=== PATIENT | female | born 1955 | race Caucasian/White ===

== ENCOUNTER 2023-10-04 12:44 | Emergency (ER) | payer BC, SELFPAY ==
[2023-10-04 12:47] VITALS: BP 149/88; PULSE 83; RESP 18; TEMP 36.2; O2SAT 99; BMI 25.7
--- NOTE | 2023-10-04 13:05 | CRLHL7_ITS ---
For Patients: As a result of the Century Cures Act, medical imaging exams and procedure reports are released immediately into your electronic medical record. You may view this report before your referring provider. If you have questions, please contact your health care provider. INDICATION: Left lower quadrant pain COMPARISON: None. TECHNIQUE: CT of the abdomen and pelvis without intravenous contrast. Multiplanar axial, coronal, and sagittal reformats were reconstructed. Intravenous contrast: None. Oral contrast was not administered. FINDINGS: Lung bases: There are two 4 mm right lower nodules. Trace pericardial effusion. No pleural effusion. Liver: Normal size and non-contrast attenuation. Gallbladder and biliary tree: Normal gallbladder. No biliary duct dilation. Pancreas: Normal. Spleen: Normal size. Adrenal glands: Normal. No nodules. Kidneys and bladder: Normal size and position. No obvious cyst or mass. No calculi. No urinary tract dilation. The urinary bladder is normal. GI: Normal. No dilated segments. No abnormal bowel wall thickening. Small stool burden. The appendix is normal. Vessels: Normal caliber abdominal aorta with moderate calcified atherosclerotic plaques. Peritoneum: No free fluid. Lymph nodes: Within the jejunal mesentery there are increased number of very small lymph nodes. No substantial mesenteric edema.. Pelvis: Physiologic appearance of the reproductive organs. Bones: No acute or healing fractures. Spinal curvature. L4-5 disc degeneration and facet arthropathy. 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 IMPRESSION: 1. Nonspecific increased but still very small jejunal mesenteric lymph nodes, could be reactive. No severe bowel inflammation seen on noncontrast CT. 2. Trace pericardial effusion. 3. There are two 4 mm nodules in the right lower lobe. If this is a low risk patient, no follow up is recommended. If the patient is high risk for primary pulmonary malignancy, follow-up chest CT could be considered in 12 months, per the Fleischner Society recommendations. Please note that all CT scans at this facility use dose modulation, iterative reconstruction, and/or weight-based dosing when appropriate to reduce radiation dose to as low as reasonably achievable. Dictated by Alexa Diaz MD @ 10/04/2023 1:53:55 PM (Electronically Signed)
[2023-10-04 13:20] LABS: Appearance Urine Clear (Clear); Bilirubin Urine Negative (Negative); Blood Urine Trace-lysed (Negative); Color Urine Yellow (Yellow); Glucose Urine Negative (Negative); Ketones Urine Negative (Negative); Leukocyte Esterase Urine Negative (Negative); Nitrite Urine Negative (Negative); Protein Urine Negative (Negative); Urobilinogen Urine 0.2 (0.2-1.0)
[2023-10-04 13:44] LABS: RBC Urine 0-2 (0-2); Squamous Epithelial Cell Urine Few (None-Few); WBC Urine 0-2 (0-5)
[2023-10-04 13:47] LABS: Lactate* 0.9 mmol/L (0.5-1.9)
[2023-10-04 13:51] LABS: Basophils Absolute Auto 0.06 K/uL (0.00-0.30); Basophils Percent Auto 0.8 % (0.0-3.0); Eosinophils Absolute Auto 0.46 K/uL (0.00-0.50); Eosinophils Percent Auto 6.1 % (0.0-7.0); Hematocrit 40.8 % (33.0-51.0); Hemoglobin* 13.5 gm/dL (12.0-16.0); Immature Granulocytes Abs Auto 0.01 K/uL (0.00-0.30); Immature Granulocytes Pct Auto 0.1 %; Lymphocytes Absolute Auto 2.07 K/uL (0.90-2.90); Lymphocytes Percent Auto 27.6 % (20-44); Mean Corpuscular HGB Conc 33 gm/dL (32-36); Mean Corpuscular Hemoglobin 31 pg (26-34); Mean Corpuscular Volume 92 fL (80-100); Monocytes Percent Auto 5.6 % (0.0-11.0); Neutrophils Absolute Auto 4.48 K/uL (1.7-7.0); Neutrophils Percent Auto 59.8 % (42.0-72.0); Platelet Count* 334 K/uL (140-440); RDW Coefficient of Variation % 12.2 % (11.5-15.5); Red Blood Count 4.43 m/uL (4.00-5.20)
[2023-10-04 13:53] LABS: Slide Review Reflex No
[2023-10-04 14:07] LABS: Albumin* 4.7 g/dL (3.3-5.0); Chloride* 104 mmol/L (96-114)
[2023-10-04 14:08] LABS: Potassium* 3.8 mmol/L (3.6-5.1); Sodium* 138 mmol/L (135-149)
[2023-10-04 14:10] LABS: Creatinine* 0.8 mg/dL (0.5-1.5); Est. Creatinine Clearance* 52.51; Estimated Glomerular Filt Rate 82 ml/min
[2023-10-04 14:11] LABS: Alanine Aminotransferase* 20 U/L (4-35); Alkaline Phosphatase* 78 U/L (40-150); Anion Gap 11 mEq/L (7-15); Aspartate Amino Transferase* 32 U/L (12-35); Bilirubin Total* 0.3 mg/dL (0.1-1.5); Blood Urea Nitrogen* 7 mg/dL (7-30); Carbon Dioxide* 23 mmol/L (20-32); Glucose* 121 mg/dL (60-115); Lipase* 205 U/L (23-300); Total Protein* 7.7 g/dL (6.0-8.3)
[2023-10-04 14:14] LABS: C Reactive Protein* 0.6 mg/dL (0.5-1.0)
--- NOTE | 2023-10-04 14:17 | CRLHL7_ITS ---
For Patients: As a result of the Century Cures Act, medical imaging exams and procedure reports are released immediately into your electronic medical record. You may view this report before your referring provider. If you have questions, please contact your health care provider. INDICATION: Left lower quadrant abdominal pain. TECHNIQUE: Transabdominal pelvic ultrasound. Grayscale images were acquired. Color spectral Doppler waveform analysis of the ovaries performed. COMPARISON: Correlation is made with a noncontrast CT of the abdomen and pelvis performed on the same date. FINDINGS: The uterus measures 6.9 x 2.6 x 3.6 cm. The endometrial stripe measures 2 mm transvaginally. The ovaries are small but normal in appearance with the right ovary measuring 1.8 x 0.8 x 1.1 cm and the left ovary measuring 2.3 x 0.9 x 1.6 cm. Blood flow is identified in the ovaries both arterial and venous. No free pelvic fluid. IMPRESSION: Normal transabdominal pelvic ultrasound. Dictated by Kingsley Donald MD @ 10/04/2023 5:09:00 PM (Electronically Signed)
--- NOTE | 2023-10-04 14:33 | ED.GENADULT ---
HPI - General Adult General Chief complaint: Abdominal Pain Stated complaint: abdominal pain Time Seen by Provider: 10/04/23 12:55 Source: patient Mode of arrival: ambulatory Limitations: no limitations History of Present Illness HPI narrative: 67-year-old female coming in today complaining of 2 weeks of left lower quadrant abdominal pain. Nothing makes the pain better or worse. It does keep her up at night. She states that she was constipated for a while, then started having normal bowel movements, now had diarrhea today. She denies any urinary symptoms such as dysuria, increased frequency or urgency. She denies fevers or chills. She denies nausea or vomiting. She states that sometime in August she had some upper respiratory symptoms and developed dark brown vaginal spotting which has resolved. She tells me that her provider has ordered her a pelvic MRI-this will not be done until October 17. Patient presents today because she can not handle the pain any longer. She states that her last colonoscopy was in 2019 and she was told that it was entirely normal. Patient takes metoprolol and levothyroxine. She states that she recently had a thyroid checked and was stable. Related Data Home Medications Medication Instructions Recorded Confirmed levothyroxine 100 mcg tablet 100 mcg PO DAILY 10/04/23 10/04/23 (Euthyrox) metoprolol succinate 25 mg 25 mg PO DAILY 10/04/23 10/04/23 tablet,extended release 24 hr Allergies Allergy/AdvReac Type Severity Reaction Status Date / Time Iodinated Contrast Media Allergy Verified 10/04/23 12:54 Review of Systems Status of ROS: Reports: 10 or more systems reviewed and unremarkable except as noted in History and below [facility] Social History Smoking Status: Never smoker How often do you have a drink containing alcohol: monthly or less AUDIT-C Alcohol total score: 1 Non-prescribed substance use: denies use Exam Narrative: Exam Narrative: Well-nourished well-developed patient in no acute distress. Alert and oriented. Answers questions appropriately. Mood and affect are appropriate. Thoughts are goal oriented and rational. No tangential or magical thinking noted. Patient speaks in full sentences without needing to catch their breath. HEENT: Normocephalic atraumatic. Pupils are equally round reactive to light. Extraocular muscles are intact. Conjunctivae are moist without any icterus noted. Moist mucous membranes. Posterior pharynx is normal. Neck is soft without any lymphadenopathy or thyromegaly. No masses are appreciated. Cardiovascular: Heart is regular rate and rhythm S1 and S2 are present without any murmurs. Lungs: Clear to auscultation bilaterally no wheezes rhonchi or rales are appreciated. Patient takes deep breaths without any discomfort. Abdomen: Soft and nondistended. She does have left lower quadrant abdominal tenderness. Normal bowel sounds. No rebound tenderness. No peritoneal signs. Extremities: Bilateral lower extremities are without edema. Normal DP and PT pulses. Skin: Well perfused without any obvious rashes. Const: Vital Signs, click to edit/add: Vital Signs - 24 hr 10/04/23 12:47 10/04/23 15:05 Temperature 97.1 F L Pulse Rate [Right Pulse Oximeter] 83 60 Respiratory Rate 18 16 Blood Pressure [Ri ght Upper Arm] 149/88 H 135/91 H Pulse Oximetry 99 98 Oxygen Delivery Me thod Room Air Room Air Course Course ED Course: Lab work was unremarkable. Abdominal CT showed some small perhaps reactive lymph nodes but no other significant abnormalities aside from trace pericardial effusion, unclear the significance of this at this time. Pelvic ultrasound did not show any abnormalities. Vital Signs Vital signs: Initial Vital Signs Temperature 97.1 F L 10/04/23 12:47 Temperature Source Temporal Artery Scan 10/04/23 12:47 Pulse Rate 83 10/04/23 12:47 Respiratory Rate 18 10/04/23 12:47 Blood Pressure 149/88 H 10/04/23 12:47 Blood Pressure Mean 108 H 10/04/23 12:47 Blood Pressure Position Sitting 10/04/23 12:47 Pulse Oximetry 99 10/04/23 12:47 Oxygen Delivery Method Room Air 10/04/23 12:47 Vital Signs Temperature 97.1 F L 10/04/23 12:47 Pulse Rate 83 10/04/23 12:47 Respiratory Rate 18 10/04/23 12:47 Blood Pressure 149/88 H 10/04/23 12:47 Pulse Oximetry 99 10/04/23 12:47 Oxygen Delivery Method Room Air 10/04/23 12:47 Temperature 97.1 F L 10/04/23 12:47 Pulse Rate 60 10/04/23 15:05 Respiratory Rate 16 10/04/23 15:05 Blood Pressure 135/91 H 10/04/23 15:05 Pulse Oximetry 98 10/04/23 15:05 Oxygen Delivery Method Room Air 10/04/23 15:05 Medical Decision Making MDM Narrative Medical decision making narrative: 67-year-old female with left lower quadrant pain of unclear etiology. At this point recommend follow-up with OBGYN and/or GI. Return to ER if symptoms are getting worse. Lab Data Lab results reviewed: Yes I reviewed the patient's lab results Labs: Lab Results 10/04/23 10/04/23 Range/Units 13:08 13:40 WBC 7.50 (4.50-11.00) K/uL RBC 4.43 (4.00-5.20) m/uL Hgb 13.5 (12.0-16.0) gm/dL Hct 40.8 (33.0-51.0) % MCV 92 (80-100) fL MCH 31 (26-34) pg MCHC 33 (32-36) gm/dL RDW Coeff of Tamy 12.2 (11.5-15.5) % Plt Count 334 (140-440) K/uL Neut % (Auto) 59.8 (42.0-72.0) % Lymph % (Auto) 27.6 (20-44) % [place] % (Auto) 5.6 (0.0-11.0) % Eos % (Auto) 6.1 (0.0-7.0) % Baso % (Auto) 0.8 (0.0-3.0) % Neut # (Auto) 4.48 (1.7-7.0) K/uL Lymph # (Auto) 2.07 (0.90-2.90) K/uL [place] # (Auto) 0.40 (0.00-0.90) K/UL Eos # (Auto) 0.46 (0.00-0.50) K/uL Baso # (Auto) 0.06 (0.00-0.30) K/uL Abs Immat Gran (auto) 0.01 (0.00-0.30) K/uL Imm/Tot Granulo (auto) 0.1 % Sodium 138 (135-149) mmol/L Potassium 3.8 (3.6-5.1) mmol/L Chloride 104 (96-114) mmol/L Carbon Dioxide 23 (20-32) mmol/L Anion Gap 11 (7-15) mEq/L BUN 7 (7-30) mg/dL Creatinine 0.8 (0.5-1.5) mg/dL Estimated Creat Clear 52.51 Estimated GFR 82 ml/min Glucose 121 H (60-115) mg/dL Lactate 0.9 (0.5-1.9) mmol/L Calcium 9.0 (8.4-10.6) mg/dL Total Bilirubin 0.3 (0.1-1.5) mg/dL Direct Bilirubin 0.0 (0.0-0.5) mg/dL AST 32 (12-35) U/L ALT 20 (4-35) U/L Alkaline Phosphatase 78 (40-150) U/L C-Reactive Protein 0.6 (0.5-1.0) mg/dL Total Protein 7.7 (6.0-8.3) g/dL Albumin 4.7 (3.3-5.0) g/dL Lipase 205 (23-300) U/L Urine Color Yellow (Yellow) Urine Appearance Clear (Clear) Urine pH 7.0 (5.0-8.5) Ur Specific [place] 1.010 (1.000-1.030) Urine Protein Negative (Negative) Urine Glucose (UA) Negative (Negative) Urine Ketones Negative (Negative) Urine Blood Trace-lysed A (Negative) Urine Nitrite Negative (Negative) Urine Bilirubin Negative (Negative) Urine Urobilinogen 0.2 (0.2-1.0) Ur Leukocyte Esterase Negative (Negative) Urine RBC 0-2 (0-2) Urine WBC 0-2 (0-5) Ur Squamous Epith Cells Few (None-Few) Urine Bacteria None (None) Imaging Data CT scan - abdomen: Attestation: I have reviewed the pertinent imaging results. Radiologist's impression: INDICATION: Left lower quadrant pain COMPARISON: None. TECHNIQUE: CT of the abdomen and pelvis without intravenous contrast. Multiplanar axial, coronal, and sagittal reformats were reconstructed. Intravenous contrast: None. Oral contrast was not administered. FINDINGS: Lung bases: There are two 4 mm right lower nodules. Trace pericardial effusion. No pleural effusion. Liver: Normal size and non-contrast attenuation. Gallbladder and biliary tree: Normal gallbladder. No biliary duct dilation. Pancreas: Normal. Spleen: Normal size. Adrenal glands: Normal. No nodules. Kidneys and bladder: Normal size and position. No obvious cyst or mass. No calculi. No urinary tract dilation. The urinary bladder is normal. GI: Normal. No dilated segments. No abnormal bowel wall thickening. Small stool burden. The appendix is normal. Vessels: Normal caliber abdominal aorta with moderate calcified atherosclerotic plaques. Peritoneum: No free fluid. Lymph nodes: Within the jejunal mesentery there are increased number of very small lymph nodes. No substantial mesenteric edema.. Pelvis: Physiologic appearance of the reproductive organs. Bones: No acute or healing fractures. Spinal curvature. L4-5 disc degeneration and facet arthropathy. 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 IMPRESSION: 1. Nonspecific increased but still very small jejunal mesenteric lymph nodes, could be reactive. No severe bowel inflammation seen on noncontrast CT. 2. Trace pericardial effusion. 3. There are two 4 mm nodules in the right lower lobe. If this is a low risk patient, no follow up is recommended. If the patient is high risk for primary pulmonary malignancy, follow-up chest CT could be considered in 12 months, per the Fleischner Society recommendations. US - abdomen: Attestation: I have reviewed the pertinent imaging results. Radiologist's impression: TECHNIQUE: Transabdominal pelvic ultrasound. Grayscale images were acquired. Color spectral Doppler waveform analysis of the ovaries performed. COMPARISON: Correlation is made with a noncontrast CT of the abdomen and pelvis performed on the same date. FINDINGS: The uterus measures 6.9 x 2.6 x 3.6 cm. The endometrial stripe measures 2 mm transvaginally. The ovaries are small but normal in appearance with the right ovary measuring 1.8 x 0.8 x 1.1 cm and the left ovary measuring 2.3 x 0.9 x 1.6 cm. Blood flow is identified in the ovaries both arterial and venous. No free pelvic fluid. IMPRESSION: Normal transabdominal pelvic ultrasound. Discharge Plan Discharge Clinical Impression: Abdominal pain Patient Disposition: Home, Self-Care Condition: Stable Additional Instructions: Your workup did not reveal any obvious cause of your pain today. I would recommend you follow-up with your OBGYN or GI physician. Of note, your CT scan did show 2 small pulmonary nodules which are likely of no significance however you should show these results your primary care provider to discuss if you need any further imaging. Okay to take Tylenol, up to 1 g every 8 hours as needed. Also can take ibuprofen up to 800 mg 3 times per day, with meals as needed. Prescriptions: No Action levothyroxine [Euthyrox] 100 mcg tablet 100 mcg PO DAILY metoprolol succinate 25 mg tablet extended release 24 hr 25 mg PO DAILY Follow Up/Referrals: Provider,Not a Local [Primary Care Provider] - Stand Alone Forms: [employer]. Info Instructions
[2023-10-04 15:05] VITALS: BP 135/91; PULSE 60; RESP 16; O2SAT 98
== END 2023-10-04 17:41 | disposition home or self-care (01) ==
PROVIDERS: Emergency Provider Family Medicine
DX: R10.32 Left lower quadrant pain (principal)
CPT/HCPCS: 36415; 74176; 76856; 76857; 80048; 80076; 81001; 83605; 83690; 85025; 86140; 87086; 93976; 99284

== ENCOUNTER 2025-01-28 11:43 | Emergency (ER) | payer OTHER, SELFPAY ==
[2025-01-28 11:48] VITALS: BP 153/102; PULSE 75; RESP 18; TEMP 37.2; O2SAT 99; BMI 24.3
--- NOTE | 2025-01-28 12:01 | CRLHL7_ITS ---
For Patients: As a result of the Century Cures Act, medical imaging exams and procedure reports are released immediately into your electronic medical record. You may view this report before your referring provider. If you have questions, please contact your health care provider. INDICATION: Right upper quadrant pain COMPARISON: None. TECHNIQUE: Roche-scale and color Doppler ultrasound of the right upper quadrant. FINDINGS: Pancreas: Portions the pancreatic head and body demonstrate increased echogenicity consistent with fatty infiltration/atrophy. Liver: Normal hepatic echogenicity and normal echotexture. No mass. Patent portal vein with normal directional flow. Gallbladder and bile ducts: The gallbladder is normally distended. No wall thickening. No pericholecystic fluid. Negative sonographic Morton`s sign. There is a round mildly hyperechoic likely polyp that measures 3 x 3 x 3 millimeters. There is a fairly broad stalk or contact with the gallbladder wall. No intrahepatic ductal dilatation. The proximal extrahepatic bile duct measures up to 10 millimeter. The distal extrahepatic bile duct measures 5 millimeters. No filling defects or extrinsic compression seen. RIGHT Kidney: Renal length: 9.0 cm Parenchyma: Normal thickness and normal echogenicity. Cyst: None Mass: None Calculi: None Urinary tract: Not dilated. Abdominal aorta: Normal. No aneurysm. Ascites: None. IMPRESSION: 1. Mildly dilated proximal common bile duct within normal caliber of the distal common bile duct. Similar findings on the previous CT. 2. There is a 3 millimeter likely gallbladder polyp with a low risk morphology. Per SRU consensus guidelines, no specific follow-up is recommended. Dictated by Alexa Diaz MD @ 01/28/2025 1:31:03 PM (Electronically Signed)
--- NOTE | 2025-01-28 12:11 | ED_ITS ---
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 Who has had a couple week history of right upper quadrant pain, some chest burning. She has had no fevers chills, no cough. No leg swelling or edema. She has been generally quite healthy other than hypothyroid and mild hypertension for which she takes lisinopril and metoprolol. The metoprolol is really for PVCs. The patient has felt that food exacerbates her symptoms. She is our primary care doctor had some blood work done and then had a ultrasound ordered but it can get that for a couple of weeks. She continues to feel poorly and her upper abdomen and right upper quadrant and she presents to the ER. Patient does report when her pain is severe in the epigastrium and right upper quadrant radiates through to her back. No change in the color of her stool or urine. Related Data Home Medications ?Medication ?Instructions ?Recorded ?Confirmed levothyroxine 100 mcg tablet 100 mcg PO DAILY 10/04/23 01/28/25 (Euthyrox) metoprolol succinate 25 mg 25 mg PO DAILY 10/04/23 01/28/25 tablet,extended release 24 hr lisinopril 5 mg tablet 5 mg PO DAILY 01/28/25 01/28/25 Allergies Allergy/AdvReac Type Severity Reaction Status Date / Time Iodinated Contrast Media Allergy Verified 01/28/25 11:52 Review of Systems Status of ROS: Reports: 6 or more systems reviewed and unremarkable except as noted in History and below PFSH PFS Social History Smoking Status: Never smoker How often do you have a drink containing alcohol: monthly or less AUDIT-C Alcohol total score: 1 Non-prescribed substance use: denies use Exam Narrative: Exam Narrative: Objective: Patient's vital signs show slightly elevated blood pressure Alert orient x3 very pleasant No scleral icterus Neck is supple Chest is clear Heart rhythm regular no murmur Abdomen benign soft nontender except in the right upper quadrant and epigastrium she has some mild tenderness no palpable mass no rebound Extremities are no edema neurologic nonfocal. Const: Vital Signs, click to edit/add: Vital Signs - 24 hr 01/28/25 11:48 01/28/25 13:20 01/28/25 13:30 Temperature 98.9 F Pulse Rate [Right Pulse Oximeter] 75 Respiratory Rate 18 11 L 9 L Blood Pressure [Ri ght Upper Arm] 153/102 H Pulse Oximetry 99 Oxygen Delivery Me thod Room Air 01/28/25 13:45 Temperature Pulse Rate [Right Pulse Oximeter] Respiratory Rate 10 L Blood Pressure [Ri ght Upper Arm] Pulse Oximetry Oxygen Delivery Me thod Course Vital Signs Vital signs: Initial Vital Signs Temperature 98.9 F 01/28/25 11:48 Temperature Source Temporal Artery Scan 01/28/25 11:48 Pulse Rate 75 01/28/25 11:48 Pulse Rhythm Regular 01/28/25 11:48 Pulse Strength 3+ Normal 01/28/25 11:48 Respiratory Rate 18 01/28/25 11:48 Blood Pressure 153/102 H 01/28/25 11:48 Blood Pressure Mean 119 H 01/28/25 11:48 Blood Pressure Position Sitting 01/28/25 11:48 Pulse Oximetry 99 01/28/25 11:48 Oxygen Delivery Method Room Air 01/28/25 11:48 Vital Signs Temperature 98.9 F 01/28/25 11:48 Pulse Rate 75 01/28/25 11:48 Respiratory Rate 18 01/28/25 11:48 Blood Pressure 153/102 H 01/28/25 11:48 Pulse Oximetry 99 01/28/25 11:48 Oxygen Delivery Method Room Air 01/28/25 11:48 Temperature 98.9 F 01/28/25 11:48 Pulse Rate 75 01/28/25 11:48 Respiratory Rate 10 L 01/28/25 13:45 Blood Pressure 153/102 H 01/28/25 11:48 Pulse Oximetry 99 01/28/25 11:48 Oxygen Delivery Method Room Air 01/28/25 11:48 Medications Administered Medications: Discontinued Medications Generic Name Dose Route Start Last Admin Trade Name Freq PRN Reason Stop Dose Admin Sodium Chloride 1,000 mls @ 6,000 mls/hr 01/28/25 12:15 01/28/25 13:49 0.9 % Sodium Chloride 1000 Ml IV 01/28/25 12:24 Infused .Q10M HEMALATHA Infusion Pantoprazole Sodium 40 mg 01/28/25 12:01 01/28/25 13:07 Pantoprazole Sodium 40 Mg Inj IVP 01/28/25 12:02 40 mg ONCE ONE Administration Medical Decision Making MDM Narrative Medical decision making narrative: [age] year white female with a history of persistent right upper quadrant epigastric pain. She has developed some chest burning. At this point I think be townsend to rule out acute coronary syndrome will check an EKG, troponin, I suspect this is more GI in nature and is likely cholelithiasis or biliary colic. Will get an ultrasound. She last ate about 4 hours ago. Will check laboratory studies including amylase and LFTs and CBC and CRP. Will give some IV fluid and IV Protonix. Disposition pending findings above. Patient comfortable plan. Addendum 2:00 p.m.: The patient's EKG by my read shows normal sinus rhythm no acute ST T wave changes. Her troponin is 0, CRP is less than 0.5, white count hemoglobin are normal. ER profile is unremarkable. Ultrasound of the right upper quadrant shows mildly dilated proximal common bile duct but unchanged from prior CT scan normal caliber the distal common bile duct 3 mm gallbladder polyp with out any significant morphology change no follow-up recommended. At this point the patient feels better. We did give her IV Protonix I think we should just continue Prilosec 20 b.i.d. for the next week and then 20 daily for the next week, recommend she follow-up with her primary care doctor in prior like within the next 3-4 days. Light activity, light diet, Prilosec as described. Return if there is change concerns recurrence. She was comfortable distal follow up as directed. I suspect the patient may have some mild peptic ulcer disease or gastritis, she did have H pylori in the past, but I think simply treating with a proton pump inhibitor would be appropriate at this time. May need endoscopy if she continues to have symptoms. Lab Data Labs: Lab Results 01/28/25 01/28/25 Range/Units 12:02 13:00 WBC 7.19 (4.50-11.00) K/uL RBC 4.64 (4.00-5.20) m/uL Hgb 14.3 (12.0-16.0) gm/dL Hct 42.4 (33.0-51.0) % MCV 91 (80-100) fL MCH 31 (26-34) pg MCHC 34 (32-36) gm/dL RDW Coeff of Tamy 12.1 (11.5-15.5) % Plt Count 334 (140-440) K/uL Neut % (Auto) 62.8 (42.0-72.0) % Lymph % (Auto) 27.7 (20-44) % [place] % (Auto) 5.1 (0.0-11.0) % Eos % (Auto) 3.3 (0.0-7.0) % Baso % (Auto) 1.0 (0.0-3.0) % Neut # (Auto) 4.51 (1.7-7.0) K/uL Lymph # (Auto) 1.99 (0.90-2.90) K/uL [place] # (Auto) 0.40 (0.00-0.90) K/UL Eos # (Auto) 0.24 (0.00-0.50) K/uL Baso # (Auto) 0.07 (0.00-0.30) K/uL Abs Immat Gran (auto) 0.01 (0.00-0.30) K/uL Imm/Tot Granulo (auto) 0.1 % Sodium 137 (135-149) mmol/L Potassium 4.2 (3.6-5.1) mmol/L Chloride 102 (96-114) mmol/L Carbon Dioxide 26 (20-32) mmol/L Anion Gap 9 (7-15) mEq/L BUN 9 (7-30) mg/dL Creatinine 0.9 (0.5-1.5) mg/dL Estimated Creat Clear 53.09 Estimated GFR 70 ml/min Glucose 95 (60-115) mg/dL Lactate 0.7 (0.5-1.9) mmol/L Calcium 9.4 (8.4-10.6) mg/dL Total Bilirubin 0.7 (0.1-1.5) mg/dL Direct Bilirubin 0.5 (0.0-0.5) mg/dL AST 41 H (12-35) U/L ALT 20 (4-35) U/L Alkaline Phosphatase 59 (40-150) U/L C-Reactive Protein < 0.5 L (0.5-1.0) mg/dL Total Protein 8.0 (6.0-8.3) g/dL Albumin 4.9 (3.3-5.0) g/dL POC Troponin I 0.00 L (0.01-0.04) ng/ml Discharge Plan Discharge Clinical Impression: Acute epigastric pain Patient Disposition: Home, Self-Care Condition: Improved Additional Instructions: Light diet for the next 24-48 hour, Prilosec 20 mg b.i.d. for the next week and then daily for the next week after that. Follow up with regular doctor in next 3-4 days. Light activity recommended as well. Return if problems or concerns. Activity Level: Light activity Discharge Diet: Low Fat/Low Cholesterol Prescriptions: No Action levothyroxine [Euthyrox] 100 mcg tablet 100 mcg PO DAILY metoprolol succinate 25 mg tablet extended release 24 hr 25 mg PO DAILY lisinopril 5 mg tablet 5 mg PO DAILY Follow Up/Referrals: Provider,Not a Local [Primary Care Provider] - Stand Alone Forms: [employer] Info Instructions
[2025-01-28] MEDS: 0.9 % SODIUM CHLORIDE 1000 ml 1,000 ML 6000 ML IV (13:07)
[2025-01-28] MEDS: PANTOPRAZOLE SODIUM 40 MG INJ IVP (13:07)
[2025-01-28 13:12] LABS: Lactate* 0.7 mmol/L (0.5-1.9)
[2025-01-28 13:13] LABS: Basophils Absolute Auto 0.07 K/uL (0.00-0.30); Eosinophils Absolute Auto 0.24 K/uL (0.00-0.50); Eosinophils Percent Auto 3.3 % (0.0-7.0); Hematocrit 42.4 % (33.0-51.0); Hemoglobin* 14.3 gm/dL (12.0-16.0); Immature Granulocytes Abs Auto 0.01 K/uL (0.00-0.30); Immature Granulocytes Pct Auto 0.1 %; Lymphocytes Absolute Auto 1.99 K/uL (0.90-2.90); Lymphocytes Percent Auto 27.7 % (20-44); Mean Corpuscular HGB Conc 34 gm/dL (32-36); Mean Corpuscular Hemoglobin 31 pg (26-34); Mean Corpuscular Volume 91 fL (80-100); Monocytes Percent Auto 5.1 % (0.0-11.0); Neutrophils Absolute Auto 4.51 K/uL (1.7-7.0); Neutrophils Percent Auto 62.8 % (42.0-72.0); Platelet Count* 334 K/uL (140-440); RDW Coefficient of Variation % 12.1 % (11.5-15.5); Red Blood Count 4.64 m/uL (4.00-5.20); White Blood Count* 7.19 K/uL (4.50-11.00)
[2025-01-28 13:17] LABS: Slide Review Reflex No
--- OUTSIDE RECORDS SUMMARY | 2025-01-28 13:18 | XMS_ITS | Encounter Summary ---
Author Organization [place] Address [address] [place] [address] Care Team Providers Care Auditor Name Role Phone Loretta Grove MD Primary Care Provider [phone] Loretta Grove MD Unavailable [phone] Beverley Leonard OD Unavailable Shirin Rendon MD Unavailable Loretta Grove MD Unavailable [phone] Junior Flores MD Unavailable Belinda Brunson CNP Primary Care Provider [phone] Belinda Brunson CNP Unavailable [phone] Encounter Details Date Type Department Care Team (Late st Contact Info) Description 10/21/2021 MyC Medical Advice [facility] [address] [place] [address] Magdalena Burger Social History Tobacco Use Types Packs/Day Years Used Date Smoking Tobacco: Never Smokeless Tobacco: Never Alcohol Use Standard Drinks/Week Comments Yes 0 (1 standard drink = 0.6 oz pur e alcohol) wine sometimes PHQ-2 Answer Date Recorded PHQ-2 Score 0 04/15/2021 Comments No Sex and Gender Information Value Date Recorded Sex Assigned at Female 03/19/2022 8:51 PM CDT Legal Sex Female 5:08 AM DE ICER FINISHER Gender Identity Female 03/19/2022 8:51 PM CDT Sexual Orientation Not on file COVID-19 Exposure Response Date Recorded In the last month, have you been in contact with someone who was confirmed or suspected to have Coronavirus / COVID-19? No / Unsure 10/22/2021 6:30 AM DE ICER FINISHER documented as of this encounter Plan of Treatment Upcoming Encounters Date Type Department Care Team (Late st Contact Info) Description 02/04/2025 1:00 PM CDT Appointment [facility] Imaging [address] [place] [phone] Belinda Brunson, AIRPLANE COVER MAKER [address] [place] [address] 02/06/2025 8:[address] [facility] [address] [place] [phone] 10/26/2025 9:30 AM DE ICER FINISHER Office Visit [address] [phone] Belinda Brunson, AIRPLANE COVER MAKER [address] [place] [address] documented as of this encounter Visit Diagnoses Not on filedocumented in this encounter Additional Health Concerns Infection Onset Date Last Indicated Resolved Time Rule Out C-difficile 04/08/2023 04/08/2023 023 3:47 PM CDT Assessment Noted Time PHQ-9 Depression Total Score: 0 03/27/20 19 9:42 AM CDT documented as of this encounter Care Teams Auditor Relationship Specialty [place] [address] [place] [address] PCP - General Family Practice 11/16/15 10/15/24 Belinda Brunson, LALO [facility] [place] [address] PCP - General Nurse Practitioner - Family 10/16/24 [place] [address] [place] [address] Assigned PCP 04/17/21 09/08/22 Beverley Leonard OD [address] [facility] [place] [address] Assigned Surgical Provider 10/02/21 12/31/21 [place] [address] [place] [address] Assigned PCP 09/09/22 10/12/23 [place] [address] [place] [address] Assigned PCP 10/13/23 11/02/24 Junior Flores MD [address] [address] Assigned OBGYN Provider 10/27/23 Belinda Brunson, LALO [facility] [place] [address] Assigned PCP 11/03/24 documented as of this encounter
--- OUTSIDE RECORDS SUMMARY | 2025-01-28 13:18 | XMS_ITS | Encounter Summary ---
Author Organization [facility] Address [address] [place] [address] Care Team Providers Care Pharmacy Services Representative Name Role Phone Loretta Grove MD Primary Care Provider Shirin Rendon MD Unavailable Loretta Grove MD Unavailable [phone] Junior Flores MD Unavailable Belinda Brunson CNP Primary Care Provider Belinda Brunson CNP Unavailable [phone] Reason for Visit * Reason Onset Date Comments MyChart Communication 04/05/2023 Encounter Details Date Type Department Care Team (Late st Contact Info) Description 04/05/2023 [facility] [address] [place] [address] [place] [address] [place] [address] MyChart Communication Social History Tobacco Use Types Packs/Day Years Used Date Smoking Tobacco: Never Smokeless Tobacco: Never Alcohol Use Standard Drinks/Week Comments Yes 0 (1 standard drink = 0.6 oz pur e alcohol) wine sometimes Social Connection and Isolat ion Panel [NHANES] Answer Date Recorded In a typical week, how many times do you talk on the phone with family, friends, or neighbors? More than three times a week 08/27/2022 How often do you get togethe r with friends or relatives? More than three times a week 08/27/2022 How often do you attend chur ch or congregational services? More than 4 times per year 08/27/2022 Active Member of Clubs or Organizations Not on f ile 08/27/2022 Attends Club or Organization Meetings Not on marcos e 08/27/2022 Are you , , di vorced, , never , or living with a partner? 08/27/2022 AUDIT-C Answer Date Recorded Q1: How often do you have a drink containing alc ohol? Monthly or less 08/27/2022 Q2: How many drinks containi ng alcohol do you have on a typical day when you are drinking? 1 or 2 08/27/2022 Q3: How often do you have si x or more drinks on one occasion? Never 08/27/2022 Overall Financial Resource Strain (CARDIA) Answe r Date Recorded How hard is it for you to pa y for the very basics like food, housing, medical care, and heating? Patient declined 08/27/2022 PHQ-2 Answer Date Recorded PHQ-2 Score 0 08/29/2022 [facility] - Occupational Stress Questionnaire Answer Date Recorded Do you feel stress - tense, restless, nervous, or anxious, or unable to sleep at night because your mind is troubled all the time - these days? Only a little 08/27/2022 Exercise Vital Sign Answer Date Recorde d On average, how many days pe r week do you engage in moderate to strenuous exercise (like a brisk walk)? 6 days 08/27/2022 On average, how many minutes do you engage in exercise at this level? 50 min 08/27/2022 Hunger Vital Sign Answer Date Recorded Within the past 12 months, y ou worried that your food would run out before you got the money to buy more. Patient declined Within the past 12 months, t he food you bought just didn't last and you didn't have money to get more. Patient declined PRAPARE - Transportation Answer Date Re corded In the past 12 months, has l ack of transportation kept you from medical appointments or from getting medications? No 08/12 In the past 12 months, has l ack of transportation kept you from meetings, work, or from getting things needed for daily living? No 08/27/2022 Housing Stability Vital Sign Answer Dav e Recorded In the last 12 months, was t here a time when you were not able to pay the mortgage or rent on time? Patient refused 08/27/20 22 In the last 12 months, how many places have you lived? 1 08/27/2022 In the last 12 months, was t here a time when you did not have a steady place to sleep or slept in a longterm (including now)? No 08/27/2022 Comments No Sex and Gender Information Value Date Recorded Sex Assigned at Female 03/19/2022 8:51 PM CDT Legal Sex Female 5:08 AM BROADBAND TECHNICIAN Gender Identity Female 03/19/2022 8:51 PM CDT Sexual Orientation Not on file COVID-19 Exposure Response Date Recorded In the last 10 days, have yo u been in contact with someone who was confirmed or suspected to have Coronavirus/COVID-19? No / Unsure 04/08/2023 10:20 AM CDT documented as of this encounter Miscellaneous Notes * Telephone Encounter - Loretta Grove MD - 04/06/2023 12:03 PM CDT Any time * Telephone Encounter - Lou Christianson RN - 04/06/2023 7:48 AM CDT Call to pt- She did take an imodium last night I just could not take it any more She has not had a diarrhea stool since last night. Reviewed diet with pt and need to go to ER if symptoms of dehydration. Continue with Gatorade and bland diet She will come up today to supervisor opening and picking test. As she took the imodium when should she collect sample? Lou Christianson RN * Telephone Encounter - Loretta Grove MD - 04/05/2023 5:48 PM CDT NO IMODIUM!!! Or at least until we can negative stool testing. Stool tests ordered - please have her come in [facility] Sunday to fulfill these so we can get results back. If she feels she is too dehydrated, she needs to proceed to ER for IVF> JH * Telephone Encounter - Maria Alejandra Sung RN - 04/05/2023 1:13 PM CDT Please advise Maria Alejandra Heck RN, BSN documented in this encounter Plan of Treatment Upcoming Encounters Date Type Department Care Team (Late st Contact Info) Description 02/04/2025 1:00 PM CDT Appointment [facility] Imaging [address] [facility] [address] [place] [address] Belinda Brunson, RAW MATERIAL HANDLER [address] [place] [phone] 02/06/2025 8:15 AM CDT Lab [facility] [address] [place] [phone] 10/26/2025 9:30 AM BROADBAND TECHNICIAN Office Visit [address] [phone] Belinda Brunson, RAW MATERIAL HANDLER [address] [place] [address] documented as of this encounter Results * Enteric Bacteria and Virus Panel by WENDY Stool (04/08/2023 10:30 AM CDT) Campylobacter group Not Detected Not Detected 04/08/2023 10:25 PM CDT [facility] Salmonella species Not Detected Not Detected 04/08/2023 10:25 PM CDT [facility] Shigella species Not Detected Not Detected 04/08/2023 10:25 PM CDT [facility] Vibrio group Not Detected Not Detected 04/08/2023 10:25 PM CDT [facility] Rotavirus Not Detected Not Detected 04/08/2023 10:25 PM CDT [facility] Shiga toxin 1 gene Not Detected Not Detected 04/08/2023 10:25 PM CDT [facility] Shiga toxin 2 gene Not Detected Not Detected 04/08/2023 10:25 PM CDT [facility] Norovirus I and II Not Detected Not Detected 04/08/2023 10:25 PM CDT [facility] Yersinia enterocolitica Not Detected Not Detected 04/08/2023 10:25 PM CDT [facility] Stool RECTAL CONTENTS / Unknown Non-blood Collection / Unknown 04/08/2023 10:30 AM CDT 04/08/2023 11:38 AM CDT Narrative [facility] - 04/08/2023 10:25 PM CDT Testing performed by multiplexed, qualitative PCR using the [employer] Enteric Pathogens Nucleic Acid Test. Results should not be used as the sole basis for diagnosis, treatment or other patient management decisions. Positive results do not rule out co-infection with other organisms that are not detected by this test and may not be the sole or definitive cause of patient illness. Negative results in the setting of clinical illness compatible with gastroenteritis may be due to infection by pathogens that are not detected by this test or non-infectious causes such as ulcerative colitis, irritable bowel syndrome or Crohn's disease. Note: Shiga toxin producing E. coli (STEC) typically harbor one or both genes that encode for Shiga toxins 1 and 2. us Loretta Grove MD LAB - MICRO GENERAL ORDER RONY Final Result [facility] Inf. Diseases Diag. Lab [address] [facility] [place] [phone] [phone] * C. difficile Toxin B PCR with reflex to C. difficile Antigen and Toxins A/B EIA (04/08/2023 10:30 AM CDT) C Difficile Toxin B by PCR Negative Negative 04/08/2023 3:47 PM CDT [facility] Comment:A negative result do es not exclude actual disease due to C. difficile and may be due to improper collection, handling and storage of the specimen or the number of organisms in the specimen is below the detection limit of the assay. Stool RECTAL CONTENTS / Unknown Non-blood Collection / Unknown 04/08/2023 10:30 AM CDT 04/08/2023 11:37 AM CDT Narrative [facility] - 04/08/2023 3:47 PM CDT The [employer] Xpert C. difficile Assay, performed on the [employer] Systems, is a qualitative in vitro diagnostic test for rapid detection of toxin B gene sequences from unformed (liquid or soft) stool specimens collected from patients suspected of having Clostridioides difficile infection (CDI). The test utilizes automated real-time polymerase chain reaction (PCR) to detect toxin gene sequences associated with toxin producing C. difficile. The Xpert C. difficile Assay is intended as an aid in the diagnosis of CDI. Loretta Grove MD LAB - MICRO GENERAL ORDER RONY Final Result [facility] Inf. Diseases Diag. Lab [address] [facility] [place] [address] [phone] * Ova and Parasite Exam Routine (04/08/2023 10:30 AM CDT) OVA AND PARASITE EXAM Negative Negative ARNALDO 04/10/2023 3:24 PM CDT [facility] Comment:A single negative sp ecimen does not rule out parasitic infection. Stool RECTAL CONTENTS / Unknown Non-blood Collection / Unknown 04/08/2023 10:30 AM CDT 04/08/2023 11:36 AM CDT Narrative [facility] - 04/10/2023 3:24 PM CDT Cryptosporidium, Cyclospora and Microsporidia are not readily detected by this method. Loretta Grove MD LAB - MICRO GENERAL ORDER RONY Final Result [facility] Inf. Diseases Diag. Lab [address] [facility] [place] [address], [facility] [phone] documented in this encounter Visit Diagnoses Diagnosis Diarrhea, unspecified type- Primary documented in this encounter Additional Health Concerns Infection Onset Date Last Indicated Resolved Time Rule Out C-difficile 04/08/2023 04/08/2023 023 3:47 PM CDT Assessment Noted Time PHQ-9 Depression Total Score: 0 03/27/20 19 9:42 AM CDT documented as of this encounter Care Teams Pharmacy Services Representative Relationship Specialty [place] [address] [place] [address] PCP - General Family Practice 11/16/15 10/15/24 Belinda Brunson, LALO [address] [place] [address] PCP - General Nurse Practitioner - Family 10/16/24 [place] [address] [place] [address] Assigned PCP 09/09/22 10/12/23 [place] [address] [place] [address] Assigned PCP 10/13/23 11/02/24 Junior Flores MD [facility], [address] [place] [address] Assigned OBGYN Provider 10/27/23 Belinda Brunson, LAOL [address] [place] [address] Assigned PCP 11/03/24 documented as of this encounter
--- OUTSIDE RECORDS SUMMARY | 2025-01-28 13:18 | XMS_ITS | Encounter Summary ---
Author Organization [place] Address [address] [place] [address] Care Team Providers Care Account Resolution Expert Name Role Phone Loretta Grove MD Primary Care Provider [phone] Loretta Grove MD Unavailable [phone] Loretta Grove MD Unavailable [phone] Terrance Gudino DPM Unavailable [phone] Yvonne Bailey MD Unavailable [phone] Loretta Grove MD Unavailable [phone] Beverley Leonard OD Unavailable Shirin Rendon MD Unavailable Loretta Grove MD Unavailable [phone] Junior Flores MD Unavailable Belinda Brunson CNP Primary Care Provider [phone] Belinda Brunson CNP Unavailable [phone] Encounter Details Date Type Department Care Team (Late st Contact Info) Description 03/16/2016 MyC Medical Advice [address] [address] Analia Cui MD [address] [facility] [place] [address] Social History Tobacco Use Types Packs/Day Years Used Date Smoking Tobacco: Never Smokeless Tobacco: Never Alcohol Use Standard Drinks/Week Comments No 0 (1 standard drink = 0.6 oz pur e alcohol) Comments No Sex and Gender Information Value Date Recorded Sex Assigned at Female 03/19/2022 8:51 PM CDT Legal Sex Female 5:08 AM PIPE ORGAN INSTALLER Gender Identity Female 03/19/2022 8:51 PM CDT Sexual Orientation Not on file documented as of this encounter Plan of Treatment Upcoming Encounters Date Type Department Care Team (Late st Contact Info) Description 02/04/2025 1:00 PM CDT Appointment [facility] Imaging [address] [place] [address] [place] [phone] Belinda Brunson, FUNERAL DIRECTOR AND EMBALMER [address] [place] [address] 02/06/2025 8:15 AM CDT Lab [facility] [address] [place] [phone] 10/26/2025 9:30 AM PIPE ORGAN INSTALLER Office Visit [address] [address] Belinda Brunson, FUNERAL DIRECTOR AND EMBALMER [address] [place] [address] documented as of this encounter Visit Diagnoses Not on filedocumented in this encounter Additional Health Concerns Infection Onset Date Last Indicated Resolved Time Rule Out C-difficile 04/08/2023 04/08/2023 023 3:47 PM CDT documented as of this encounter Care Teams Account Resolution Expert Relationship Specialty [place] [address] [place] [address] PCP - General Family Practice 11/16/15 10/15/24 [place] [address] [place] [address] PCP - Assigned PCP 11/21/15 01/14/19 Belinda Brunson CNP [address] [place] [address] PCP - General Nurse Practitioner - Family 10/16/24 [place] [address] [place] [address] Assigned PCP 11/21/15 04/06/21 Terrance Gudino DPM [id number] [place] [address] [address] [place] [address] Assigned Musculoskeletal Provider 09/03/20 10/05/20 Yvonne Bailey MD [address] [place] [address] [place] [address] Assigned PCP 04/07/21 04/16/21 [place] [address] [place] [address] Assigned PCP 04/17/21 09/08/22 Beverley Leonard OD [address] [place] [address] [place] [address] Assigned Surgical Provider 10/02/21 12/31/21 [place] [address] [place] [address] Assigned PCP 09/09/22 10/12/23 [place] [address] [place] [address] Assigned PCP 10/13/23 11/02/24 Junior Flores MD [address] [facility], [address] [address] Assigned OBGYN Provider 10/27/23 Belinda Brunson, FUNERAL DIRECTOR AND EMBALMER [address] [place] [address] Assigned PCP 11/03/24 documented as of this encounter
--- OUTSIDE RECORDS SUMMARY | 2025-01-28 13:18 | XMS_ITS | Encounter Summary ---
Author Organization [facility] Address [address] [place] [address] Care Team Providers Care Maintenance Custodian Name Role Phone Loretta Grove MD Primary Care Provider [phone] Shirin Rendon MD Unavailable Loretta Grove MD Unavailable [phone] Junior Flores MD Unavailable Belinda Brunson CNP Primary Care Provider [phone] Belinda Brunson CNP Unavailable [phone] Encounter Details Date Type Department Care Team (Late st Contact Info) Description 10/01/2023 [facility] Medical Advice [facility] Women's [address] [place] [phone] Louise Pat Social History Tobacco Use Types Packs/Day Years [...] neighbors? More than three times a week 10/02/2023 How often do you get togethe r with friends or relatives? Once a week 10/02/2023 How often do you attend chur ch or mu-ism services? More than 4 times per year 10/02/2023 Do you belong to any clubs o r organizations such as religious groups, unions, fraternal or athletic groups, or school groups? No 10/02/2023 How often do you attend meet ings of the clubs or organizations you belong to? Never 10/02/2023 Are you , , di vorced, , never , or living with a partner? 10/02/2023 AUDIT-C Answer Date Recorded Q1: How often do you have a drink containing alc ohol? Monthly or less 10/02/2023 Q2: How many drinks containi ng alcohol do you have on a typical day when you are drinking? 1 or 2 10/02/2023 Q3: How often do you have si x or more drinks on one occasion? Never 10/02/2023 PHQ-2 Answer Date Recorded PHQ-2 Score 0 10/02/2023 [facility] of Occupat ional Health - Occupational Stress Questionnaire Answer Date Recorded Do you feel stress - tense, restless, nervous, or anxious, or unable to sleep at night because your mind is troubled all the time - these days? Only a little 10/02/2023 Exercise Vital Sign Answer Date Recorde d On average, how many days pe r week do you engage in moderate to strenuous exercise (like a brisk walk)? 5 days 10/02/2023 On average, how many minutes do you engage in exercise at this level? 30 min 10/02/2023 Adolescent Education Answer Date Record ed Getting School Help Needed Not on file 08/08 Food Insecurity Answer Date Recorded Within the past 12 months, d id you worry that your food would run out before you got money to buy more? No 10/02/2023 Within the past 12 months, d id the food you bought just not last and you didn t have money to get more? No 10/02/2023 Housing Stability Answer Date Recorded Do you have housing? (Mavis g is defined as stable permanent housing and does not include staying ouside in a car, in a tent, in an abandoned building, in an overnight detention, or couch-surfing.) Yes 10/02/2023 Are you worried about losing your housing? No 10/02/2023 Financial Resource Strain Answer Date R ecorded Within the past 12 months, h ave you or your family members you live with been unable to get utilities (heat, electricity) when it was really needed? No 10/02/2023 Transportation Needs Answer Date Record ed Within the past 12 months, h as lack of transportation kept you from medical appointments, getting your medicines, non-medical meetings or appointments, work, or from getting things that you need? No 10/02/2023 Interpersonal Safety Answer Date Record ed Do you feel physically and e motionally safe where you currently live? Yes 10/02/2023 Within the past 12 months, h ave you been hit, slapped, kicked or otherwise physically hurt by someone? No 10/02/2023 Within the past 12 months, h ave you been humiliated or emotionally abused in other ways by your partner or ex-partner? No 10/02/2023 Comments No Sex and Gender Information Value Date Recorded Sex Assigned at Female 03/19/2022 8:51 PM CDT Legal Sex Female 5:08 AM FAMILY PRACTICE NURSE PRACTITIONER Gender Identity Female 03/19/2022 8:51 PM CDT Sexual Orientation Not on file documented as of this encounter Plan of Treatment Upcoming Encounters Date Type Department Care Team (Late st Contact Info) Description 02/04/2025 1:00 PM CDT Appointment [facility] Imaging [address] [facility] [address] [place] [address] Belinda Brunson, SQUEEGEE OPERATOR [address] [place] [address] 02/06/2025 8:[address] [facility] [address] [place] [phone] 10/26/2025 9:30 AM FAMILY PRACTICE NURSE PRACTITIONER Office Visit [address] [phone] Belinda Brunson, SQUEEGEE OPERATOR [address] [place] [address] documented as of this encounter Visit Diagnoses Not on filedocumented in this encounter Additional Health Concerns Assessment Noted Time PHQ-9 Depression Total Score: 0 03/27/20 19 9:42 AM CDT documented as of this encounter Care Teams Maintenance Custodian Relationship Specialty [place] [address] [place] [address] PCP - General Family Practice 11/16/15 10/15/24 Belinda Brunson CNP [address] [place] [address] PCP - General Nurse Practitioner - Family 10/16/24 [place] [address] [place] [address] Assigned PCP 09/09/22 10/12/23 [place] [address] [place] [address] Assigned PCP 10/13/23 11/02/24 Junior Flores MD [facility] [address] [address] Assigned OBGYN Provider 10/27/23 Belinda Brunson CNP [address] [place] [address] Assigned PCP 11/03/24 documented as of this encounter
--- OUTSIDE RECORDS SUMMARY | 2025-01-28 13:18 | XMS_ITS | Encounter Summary ---
Author Organization [place] Address [address] [place] [address] Care Team Providers Care Blast Furnace Checker Name Role Phone Loretta Grove MD Primary Care Provider [phone] Loretta Grove MD Unavailable [phone] Loretta Grove MD Unavailable [phone] Terrance Gudino DPM Unavailable [phone] Yvonne Bailey MD Unavailable [phone] Loretta rGove MD Unavailable [phone] Beverley Leonard OD Unavailable Shirin Rendon MD Unavailable Loretta Grove MD Unavailable [phone] Junior Flores MD Unavailable Belinda Brunson CNP Primary Care Provider [phone] Belinda Brunson CNP Unavailable [phone] Encounter Details Date Type Department Care Team (Late st Contact Info) Description 03/17/2016 [facility] Medical Advice [address] [address] Analia Cui MD 0009 [facility] [place] [address] Social History Tobacco Use Types Packs/Day Years Used Date Smoking Tobacco: Never Smokeless Tobacco: Never Alcohol Use Standard Drinks/Week Comments No 0 (1 standard drink = 0.6 oz pur e alcohol) Comments No Sex and Gender Information Value Date Recorded Sex Assigned at Female 03/19/2022 8:51 PM CDT Legal Sex Female 5:08 AM HAND BUFFER Gender Identity Female 03/19/2022 8:51 PM CDT Sexual Orientation Not on file documented as of this encounter Plan of Treatment Upcoming Encounters Date Type Department Care Team (Late st Contact Info) Description 02/04/2025 1:00 PM CDT Appointment [facility] [address] [place] [phone] Belinda Brunson, ASSEMBLER LIQUID CENTER [address] [place] [address] 02/06/2025 8:15 AM CDT Lab [facility] [address] [place] [phone] 10/26/2025 9:30 AM HAND BUFFER Office Visit [address] [phone] Belinda Brunson, ASSEM[facility] CENTER [address] [place] [address] documented as of this encounter Visit Diagnoses Not on filedocumented in this encounter Additional Health Concerns Infection Onset Date Last Indicated Resolved Time Rule Out C-difficile 04/08/2023 04/08/2023 023 3:47 PM CDT documented as of this encounter Care Teams Blast Furnace Checker Relationship Specialty [place] [address] [place] [address] PCP - General Family Practice 11/16/15 10/15/24 [place] [address] [place] [address] PCP - Assigned PCP 11/21/15 01/14/19 Belinda Brunson CNP [address] [place] [address] PCP - General Nurse Practitioner - Family 10/16/24 [place] [address] [place] [address] Assigned PCP 11/21/15 04/06/21 Terrance Gudino DPM [id number] [place] [address] [address] [place] [address] Assigned Musculoskeletal Provider 09/03/20 10/05/20 Yvonne Bailey MD [address] [place] [address] [place] [address] Assigned PCP 04/07/21 04/16/21 [place] [address] [place] [address] Assigned PCP 04/17/21 09/08/22 Beverley Leonard OD [address] [place] [address] [place] [address] Assigned Surgical Provider 10/02/21 12/31/21 [place] [address] [place] [address] Assigned PCP 09/09/22 10/12/23 [place] [address] [place] [address] Assigned PCP 10/13/23 11/02/24 Junior Flores MD [address] [facility], [address] [address] Assigned OBGYN Provider 10/27/23 Belinda Brunson, [facility] [address] [place] [address] Assigned PCP 11/03/24 documented as of this encounter
--- OUTSIDE RECORDS SUMMARY | 2025-01-28 13:18 | XMS_ITS | Encounter Summary ---
Author Organization [place] Address [address] [place] [address] Care Team Providers Care Motion Study Engineer Name Role Phone Loretta Grove MD Primary Care Provider [phone] Loretta Grove MD Unavailable [phone] Loretta Grove MD Unavailable [phone] Terrance Gudino DPM Unavailable [phone] Yvonne Bailey MD Unavailable [phone] Loretta Grove MD Unavailable [phone] Beverley Leonard OD Unavailable Shirin Rendon MD Unavailable Loretta Grove MD Unavailable [phone] Junior Flores MD Unavailable Belinda Brunson CNP Primary Care Provider [phone] Belinda Brunson CNP Unavailable [phone] Encounter Details Date Type Department Care Team (Late st Contact Info) Description 03/16/2016 [facility] [address] [place] [phone] Maria Alejandra Sung APRN SUPERVISOR PARTIAL DENTURE DEPARTMENT [address] [place] [address] [address] [place] [address] Social History Tobacco Use Types Packs/Day Years Used Date Smoking Tobacco: Never Smokeless Tobacco: Never Alcohol Use Standard Drinks/Week Comments No 0 (1 standard drink = 0.6 oz pur e alcohol) Comments No Sex and Gender Information Value Date Recorded Sex Assigned at Female 03/19/2022 8:51 PM CDT Legal Sex Female 5:08 AM UNDERGROUND MINE MACHINERY MECHANIC Gender Identity Female 03/19/2022 8:51 PM CDT Sexual Orientation Not on file documented as of this encounter Plan of Treatment Upcoming Encounters Date Type Department Care Team (Late st Contact Info) Description 02/04/2025 1:00 PM CDT Appointment [facility] [address] [place] [phone] Belinda Brunson, SUPERVISOR PARTIAL DENTURE DEPARTMENT [address] [place] [address] 02/06/2025 8:15 AM CDT Lab [facility] [address] [place] [address] [phone] 10/26/2025 9:30 AM UNDERGROUND MINE MACHINERY MECHANIC Office Visit [address] [place] [phone] Belinda Brunson, SUPERVISOR PARTIAL DENTURE DEPARTMENT [address] [place] [address] documented as of this encounter Visit Diagnoses Not on filedocumented in this encounter Additional Health Concerns Infection Onset Date Last Indicated Resolved Time Rule Out C-difficile 04/08/2023 04/08/2023 023 3:47 PM CDT documented as of this encounter Care Teams Motion Study Engineer Relationship Specialty [place] [address] [place] [address] PCP - General Family Practice 11/16/15 10/15/24 [place] [address] [place] [address] PCP - Assigned PCP 11/21/15 01/14/19 Belinda Brunson, SUPERVISOR PARTIAL DENTURE DEPARTMENT [address] [place] [address] PCP - General Nurse Practitioner - Family 10/16/24 [place] [address] [place] [address] Assigned PCP 11/21/15 04/06/21 Terrance Gudino DPM [address] [facility] [address] [place] [address] Assigned Musculoskeletal Provider 09/03/20 10/05/20 Yvonne Bailey MD [address] [place] [address] [place] [address] Assigned PCP 04/07/21 04/16/21 [place] [address] [place] [address] Assigned PCP 04/17/21 09/08/22 Beverley Leonard OD [facility] [place] [address] Assigned Surgical Provider 10/02/21 12/31/21 [place] [address] [place] [address] Assigned PCP 09/09/22 10/12/23 [place] [address] [place] [address] Assigned PCP 10/13/23 11/02/24 Junior Flores MD [address] [facility] [address] [place] [address] Assigned OBGYN Provider 10/27/23 Belinda Brunson, SUPERVISOR PARTIAL DENTURE DEPARTMENT [address]151 [place] [address] Assigned PCP 11/03/24 documented as of this encounter
--- OUTSIDE RECORDS SUMMARY | 2025-01-28 13:18 | XMS_ITS | Encounter Summary ---
Author Organization [facility] Address [address] [place] [address] Care Team Providers Care Director Of Digital Technology Name Role Phone Loretta Grove MD Primary Care Provider [phone] Loretta Grove MD Unavailable [phone] Loretta Grove MD Unavailable [phone] Terrance Gudino DPM Unavailable [phone] Yvonne Bailey MD Unavailable [phone] Loretta Grove MD Unavailable [phone] Beverley Leonard OD Unavailable Shirin Rendon MD Unavailable Loretta Grove MD Unavailable [phone] Junior Flores MD Unavailable [phone] Belinda Brunson CNP Primary Care Provider [phone] Belinda Brunson CNP Unavailable [phone] Encounter Details Date Type Department Care Team (Latest Contact Info) Description 10/16/2016 [facility] [address] [place] [phone] Lou Christianson RN Acquired hypothyroidism (Primary Dx) Social History Tobacco Use Types Packs/Day Years Used Date Smoking Tobacco: Never Smokeless Tobacco: Never Alcohol Use Standard Drinks/Week Comments No 0 (1 standard drink = 0.6 oz pur e alcohol) Comments No Sex and Gender Information Value Date Recorded Sex Assigned at Female 03/19/2022 8:51 PM CDT Legal Sex Female 5:08 AM PROFESSOR OF ASTRONOMY Gender Identity Female 03/19/2022 8:51 PM CDT Sexual Orientation Not on file documented as of this encounter Plan of Treatment Upcoming Encounters Date Type Department Care Team (Late st Contact Info) Description 02/04/2025 1:00 PM CDT Appointment [facility] [address] [place] [address] [place] [phone] Belinda Brunson, CHIEF TECHNICIAN X RAY [address] [place] [address] 02/06/2025 8:15 AM CDT Lab [facility] [address] [place] [phone] 10/26/2025 9:30 AM PROFESSOR OF ASTRONOMY Office Visit [address] [phone] Belinda Brunson, CHIEF TECHNICIAN X RAY [address] [place] [address] documented as of this encounter Visit Diagnoses Diagnosis Acquired hypothyroidism- Primary Unspecified hypothyroidism documented in this encounter Additional Health Concerns Infection Onset Date Last Indicated Resolved Time Rule Out C-difficile 04/08/2023 04/08/2023 023 3:47 PM CDT documented as of this encounter Care Teams Director Of Digital Technology Relationship Specialty [place] [address] [address] [place] [address] PCP - General Family Practice 11/16/15 10/15/24 [place] [address] [place] [address] PCP - Assigned PCP 11/21/15 01/14/19 Belinda Brunson CNP [address] [place] [address] PCP - General Nurse Practitioner - Family 10/16/24 [place] [address] [place] [address] Assigned PCP 11/21/15 04/06/21 Terrance Gudino DPM [address] [facility] [address] [place] [address] Assigned Musculoskeletal Provider 09/03/20 10/05/20 Yvonne Bailey MD [address] [place] [address] LAURY [place] [address] Assigned PCP 04/07/21 04/16/21 [place] [address] [place] [address] Assigned PCP 04/17/21 09/08/22 Beverley Leonard OD [address] [facility] [place] [address] Assigned Surgical Provider 10/02/21 12/31/21 [place] [address] [place] [address] Assigned PCP 09/09/22 10/12/23 [place] [address] [place] [address] Assigned PCP 10/13/23 11/02/24 Junior Flores MD [address] [facility], [address] [address] Assigned OBGYN Provider 10/27/23 Belinda Brunson, CHIEF TECHNICIAN X RAY [address] [place] [address] Assigned PCP 11/03/24 documented as of this encounter
--- OUTSIDE RECORDS SUMMARY | 2025-01-28 13:18 | XMS_ITS | Encounter Summary ---
Author Organization [place] Address [address] [place] [address] Care Team Providers Care Paste Mixing Supervisor Name Role Phone Loretta Grove MD Primary Care Provider [phone] Loretta Grove MD Unavailable [phone] Loretta Grove MD Unavailable +[phone] Terrance Gudino DPM Unavailable [phone] Yvonne Bailey MD Unavailable [phone] Loretta Grove MD Unavailable [phone] Beverley Leonard OD Unavailable Shirin Rendon MD Unavailable Loretta Grove MD Unavailable [phone] Junior Flores MD Unavailable Belinda Brunson CNP Primary Care Provider [phone] Belinda Brunson CNP Unavailable [phone] Reason for Visit * Reason Onset Date Comments Trayt Communication 10/25/2016 Encounter Details Date Type Department Care Team (Late st Contact Info) Description 10/25/2016 [facility] [address] [place] [phone] [place] [address] [place] [address] MyChart Communication Social History Tobacco Use Types Packs/Day Years Used Date Smoking Tobacco: Never Smokeless Tobacco: Never Alcohol Use Standard Drinks/Week Comments No 0 (1 standard drink = 0.6 oz pur e alcohol) Comments No Sex and Gender Information Value Date Recorded Sex Assigned at Female 03/19/2022 8:51 PM CDT Legal Sex Female 5:08 AM FROG SHAKER Gender Identity Female 03/19/2022 8:51 PM CDT Sexual Orientation Not on file documented as of this encounter Plan of Treatment Upcoming Encounters Date Type Department Care Team (Late st Contact Info) Description 02/04/2025 1:00 PM CDT Appointment [facility] [address] [facility] [address] [place] [phone] Belinda Brunson, QUALITY ASSURANCE/R&D LAB TECHNICIAN [address] [place] [address] 02/06/2025 8:15 AM CDT Lab [facility] [address] [place] [phone] 10/26/2025 9:30 AM FROG SHAKER Office Visit [address] [phone] Belinda Brunson, QUALITY ASSURANCE/R&D LAB TECHNICIAN [address] [place] [address] documented as of this encounter Visit Diagnoses Not on filedocumented in this encounter Additional Health Concerns Infection Onset Date Last Indicated Resolved Time Rule Out C-difficile 04/08/2023 04/08/2023 023 3:47 PM CDT documented as of this encounter Care Teams Paste Mixing Supervisor Relationship Specialty [place] [address] [place] [address] PCP - General Family Practice 11/16/15 10/15/24 [place] [address] [place] [address] PCP - Assigned PCP 11/21/15 01/14/19 Belinda Brunson, QUALITY ASSURANCE/R&D LAB TECHNICIAN [address] [place] [address] PCP - General Nurse Practitioner - Family 10/16/24 [place] [address] [place] [address] Assigned PCP 11/21/15 04/06/21 Terrance Gudino DPM [address] [address] Assigned Musculoskeletal Provider 09/03/20 10/05/20 [place] [address] [place] [address] [place] [address] Assigned PCP 04/07/21 04/16/21 [place] [address] [place] [address] Assigned PCP 04/17/21 09/08/22 Beverley Leonard OD [address]305 [facility] [place] [address] Assigned Surgical Provider 10/02/21 12/31/21 [place] [address] [place] [address] Assigned PCP 09/09/22 10/12/23 [place] [address] [place] [address] Assigned PCP 10/13/23 11/02/24 Junior Flores MD [address] [address] Assigned OBGYN Provider 10/27/23 Belinda Brunson, LALO [address] [place] [address] Assigned PCP 11/03/24 documented as of this encounter
--- OUTSIDE RECORDS SUMMARY | 2025-01-28 13:18 | XMS_ITS | Encounter Summary ---
Author Organization [place] Address [address] [place] [address] Care Team Providers Care Paying Teller Name Role Phone Loretta Grove MD Primary Care Provider [phone] Loretta Grove MD Unavailable [phone] Loretta Grove MD Unavailable [phone] Terrance Gudino DPM Unavailable [phone] Yvonne Bailey MD Unavailable [phone] Loretta Grove MD Unavailable [phone] Beverley Leonard OD Unavailable Shirin Rendon MD Unavailable Loretta Grove MD Unavailable [phone] Junior Flores MD Unavailable Belinda Brunson CNP Primary Care Provider [phone] Belinda Brunson CNP Unavailable [phone] Encounter Details Date Type Department Care Team (Late st Contact Info) Description 12/01/2018 [facility] [address] [place] [phone] [place] [address] [place] [address] Social History Tobacco Use Types Packs/Day Years Used Date Smoking Tobacco: Never Smokeless Tobacco: Never Alcohol Use Standard Drinks/Week Comments Yes 0 (1 standard drink = 0.6 oz pur e alcohol) wine sometimes PHQ-2 Answer Date Recorded PHQ-2 Score 0 11/20/2018 Comments No Sex and Gender Information Value Date Recorded Sex Assigned at Female 03/19/2022 8:51 PM CDT Legal Sex Female 5:08 AM FLIGHT OPERATIONS INSPECTOR Gender Identity Female 03/19/2022 8:51 PM CDT Sexual Orientation Not on file documented as of this encounter Plan of Treatment Upcoming Encounters Date Type Department Care Team (Late st Contact Info) Description 02/04/2025 1:00 PM CDT Appointment [facility] [address] [facility] [address] [place] [phone] Belinda Brunson, LINE WELDER [address] [place] [address] 02/06/2025 8:15 AM CDT Lab [facility] [address] [place] [phone] 10/26/2025 9:30 AM FLIGHT OPERATIONS INSPECTOR Office Visit [address] [address] Belinda Brunson, LINE WELDER [address] [place] [address] documented as of this encounter Visit Diagnoses Not on filedocumented in this encounter Additional Health Concerns Infection Onset Date Last Indicated Resolved Time Rule Out C-difficile 04/08/2023 04/08/2023 023 3:47 PM CDT documented as of this encounter Care Teams Paying Teller Relationship Specialty [place] [address] [place] [address] PCP - General Family Practice 11/16/15 10/15/24 [place] [address] [place] [address] PCP - Assigned PCP 11/21/15 01/14/19 Belinda Brunson, LINE WELDER [address] [place] [address] PCP - General Nurse Practitioner - Family 10/16/24 [place] [address] [place] [address] Assigned PCP 11/21/15 04/06/21 Terrance Gudino DPM [address] [address] Assigned Musculoskeletal Provider 09/03/20 10/05/20 Yvonne Bailey MD 3305 [facility] [place] [address] Assigned PCP 04/07/21 04/16/21 [place] [address] [place] [address] Assigned PCP 04/17/21 09/08/22 Beverley Leonard OD 3305 [facility] [place] [address] Assigned Surgical Provider 10/02/21 12/31/21 [place] [address] [place] [address] Assigned PCP 09/09/22 10/12/23 [place] [address] [place] [address] Assigned PCP 10/13/23 11/02/24 Junior Flores MD [address] [address] Assigned OBGYN Provider 10/27/23 Belinda Brunson, LINE WELDER [address] [place] [address] Assigned PCP 11/03/24 documented as of this encounter
--- OUTSIDE RECORDS SUMMARY | 2025-01-28 13:18 | XMS_ITS | Encounter Summary ---
Author Organization [place] Address [address] [place] [address] Care Team Providers Care Teletype Telegrapher Name Role Phone Loretta Grove MD Primary Care Provider [phone] Loretta Grove MD Unavailable [phone] Loretta Grove MD Unavailable [phone] Terrance Gudino DPM Unavailable [phone] Yvonne Bailey MD Unavailable [phone] Loretta Gorve MD Unavailable [phone] Beverley Leonard OD Unavailable Shirin Rendon MD Unavailable Loretta Grove MD Unavailable [phone] Junior Flores MD Unavailable Belinda Brunson CNP Primary Care Provider [phone] Belinda Brunson CNP Unavailable [phone] Encounter Details Date Type Department Care Team (Late st Contact Info) Description 07/01/2016 [facility] [address] [place] [phone] Maria Alejandra Sung APRN REAL ESTATE PROFESSIONAL [address] [place] [address] [address] [place] [address] Social History Tobacco Use Types Packs/Day Years Used Date Smoking Tobacco: Never Smokeless Tobacco: Never Alcohol Use Standard Drinks/Week Comments No 0 (1 standard drink = 0.6 oz pur e alcohol) Comments No Sex and Gender Information Value Date Recorded Sex Assigned at Female 03/19/2022 8:51 PM CDT Legal Sex Female 5:08 AM EXTERNAL AUDITOR Gender Identity Female 03/19/2022 8:51 PM CDT Sexual Orientation Not on file documented as of this encounter Plan of Treatment Upcoming Encounters Date Type Department Care Team (Late st Contact Info) Description 02/04/2025 1:00 PM CDT Appointment [facility] [address] [place] [address] [place] [phone] Belinda Brunson, REAL ESTATE PROFESSIONAL [address] [place] [address] 02/06/2025 8:15 AM CDT Lab [facility] [address] [place] [phone] 10/26/2025 9:30 AM EXTERNAL AUDITOR Office Visit [address] [place] [phone] Belinda Brunson, REAL ESTATE PROFESSIONAL [address] [place] [address] documented as of this encounter Visit Diagnoses Not on filedocumented in this encounter Additional Health Concerns Infection Onset Date Last Indicated Resolved Time Rule Out C-difficile 04/08/2023 04/08/2023 023 3:47 PM CDT documented as of this encounter Care Teams Teletype Telegrapher Relationship Specialty [place] [address] [place] [address] PCP - General Family Practice 11/16/15 10/15/24 [place] [address] [place] [address] PCP - Assigned PCP 11/21/15 01/14/19 Belinda Brunson, REAL ESTATE PROFESSIONAL [address] [place] [address] PCP - General Nurse Practitioner - Family 10/16/24 [place] [address] [place] [address] Assigned PCP 11/21/15 04/06/21 Terrance Gudino DPM [address] [facility] [address] [place] [address] Assigned Musculoskeletal Provider 09/03/20 10/05/20 Yvonne Bailey MD [address] [place] [address] [place] [address] Assigned PCP 04/07/21 04/16/21 [place] [address] [place] [address] Assigned PCP 04/17/21 09/08/22 Beverley Leonard OD [facility] [place] [address] Assigned Surgical Provider 10/02/21 12/31/21 [place] [address] [place] [address] Assigned PCP 09/09/22 10/12/23 [place] [address] [place] [address] Assigned PCP 10/13/23 11/02/24 Junior Flores MD [address] [facility] [address] [place] [address] Assigned OBGYN Provider 10/27/23 Belinda Brunson, REAL ESTATE PROFESSIONAL [address]151 [place] [address] Assigned PCP 11/03/24 documented as of this encounter
--- OUTSIDE RECORDS SUMMARY | 2025-01-28 13:18 | XMS_ITS | Clinical Summary ---
Author Organization [facility] Address [address] [place] [id number] Care Team Providers Care Research Physiologist Name Role Phone Junior Flores MD Unavailable Belinda Brunson CNP Primary Care Provider Belinda Brunson CNP Unavailable [phone] Allergies Active Allergy Reactions Criticality Noted Date Comments Contrast Dye Other (See Comments),Melody Patel 04/03/2016 Facial swelling- states reaction happened over 20 yrs ago in response to contrast dye. 10/21/21 - pretreated with IV benadryl without immediate reaction, but noted rash and swelling several hours later. Sodium Iodide Jorge 09/01/2010 Medications Multiple Vitamin (MULTIVITAMIN) per tabletIndications: Routine gynecological examination Take 1 tablet by mouth daily. 100 tablet 12 0 Active Calcium Carb-Cholecalcifer ol 600-400 MG-UNIT TABS 2 Active acetaminophen (TYLENOL) 500 MG tablet Take 500-1,000 mg by mouth every 6 hours as needed for mild pain Active Psyllium (METAMUCIL PO) Activ e lisinopril (ZESTRIL) 5 MG tabletIndications: Hypertension goal BP (blood pressure) < 140/90 Take 1 tablet (5 mg) by mouth daily. 90 tablet 4 4 Active metoprolol succinate ER (TOPROL XL) 25 MG 24 hr tabletIndications: PVC's (premature ventricular contractions) Take 1 tablet (25 mg) by mouth daily. 90 tablet 4 4 Active levothyroxine (SYNTHROID/LEVOTHR OID) 100 MCG tabletIndications: Hypothyroidism, unspecified type Take 1 tablet (100 mcg) by mouth daily. 90 tablet 4 4 Active cyclobenzaprine (FLEXERIL) 10 MG tabletIndications: Chest wall pain Take 1 tablet (10 mg) by mouth 3 times daily as needed for muscle spasms. 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 Plan per protocol, colp within three months. 12/26/12 [place]: SANTOS 1. ECC: Cannot exclude high grade. Plan LEEP 03/07/13 ECC done-Neg. Plan: pap in 1 year 01/19/14 Pap ASCUS with Neg high risk HPV. Plan: pap and HPV in 1 year. 04/19/15 Pap NIL with Neg HPV. Plan: cotest in 1 year 06/29/16 NIL/neg HR HPV. Plan: routine screening 08/29/22 NIL, Neg HPV. Plan provider review Family history of breast cancer in first degree relative Overview (08/22/2012): Mother dx with breast cancer at age 60 Resolved Problems Problem Noted Date Diagnosed Date Resolved Date Stage 3a chronic kidney disease 10/02/2023 12/18/2023 Elevated blood pressure read ing without diagnosis of hypertension 03/27/2019 10/02/2023 Acute non-recurrent ethmoidal sinusitis 03/27/2019 10/02/2023 Acquired hypothyroidism 11/25/201508/12 Hypothyroidism 01/25/2015 11/25/2015 Advanced directives, counseling/discussion 02/20/2014 04/28/2024 Overview (02/20/2014): Discussed Advance Directive planning with patient; information given to patient to review. Depression with anxiety 08/25/201009/12 Rotator cuff (capsule) sprain 05/05/2010 08/01/2010 CARDIOVASCULAR SCREENING; LD L GOAL LESS THAN 160 04/15/2021 Encounters Date Type Department Care Team Description 01/28/2025 MyC Medical Advice [address] [place] [phone] Belinda Brunson CNP 01/19/2025 1:00 PM CDT Office Visit [address] [place] [phone] Belinda Brunson CNP Epigastric pain (Primary Dx); Mixed hyperlipidemia; Chest wall pain 01/19/2025 Travel from Last 3 Months Immunizations Name Administration Dates Next Due COVID-19 MONOVALENT 12+ (Pfizer) 11/21/2021,01/10,01/05/2021 Influenza (High Dose) Trival ent,PF (Fluzone) 08/15/2024 Influenza (IIV3) PF 08/04/2010,,09/22/1998,1996,09/25/1996,10/01/1995,1955 Influenza Vaccine 18-64 (Flublok) 08/29/2022,,07/16/2020 Influenza Vaccine 65+ (Fluzone HD) 08/14/2023 Influenza Vaccine, 6+MO IM (QUADRIVALENT W/PRESERVATIVES) 08/18/2019,08/13/2018,08/30/2017,2014 Pneumococcal 20 valent Conju gate (Prevnar 20) 12/04/2022 TDAP (Adacel,Boostrix) 11/15/2007 TDAP Vaccine (Adacel) 04/03/2018 Td (Adult), Adsorbed 06/10/1996 Zoster recombinant adjuvante d (Shingrix) 10/07/2018,04/03/2018 Family History Medical History Relation Comments Cancer Father lung Heart Disease Father Breast Cancer Mother Cerebrovascular Disease Mother Glaucoma Mother Heart Disease Mother Myocardial Infarction Mother Macular Degeneration No family hx of Relation Status Comments Father Mother Social History Tobacco Use Types Packs/Day Years Used Date Smoking Tobacco: Never Smokeless Tobacco: Never Tobacco Cessation:Counseling Given: No Alcohol Use Standard Drinks/Week Comments Yes 0 (1 standard drink = 0.6 oz pur e alcohol) Rare Social Connection and Isolat ion Panel [NHANES] Answer Date Recorded Frequency of Communication w ith Friends and Family Not on file 10/12/2024 How often do you get togethe r with friends or relatives? More than three times a week 10/12/2024 Attends Holiness Services Not on file 10/12 Active Member of Clubs or Organizations Not on f ile 10/12/2024 Attends Club or Organization Meetings Not on marcos e 10/12/2024 Marital Status Not on file 10/12/2024 AUDIT-C Answer Date Recorded Q1: How often [...] PHQ-2 Answer Date Recorded PHQ-2 Score 0 01/19/2025 [facility] - Occupational Stress Questionnaire Answer Date Recorded Do you feel stress - tense, restless, nervous, or anxious, or unable to sleep at night because your mind is troubled all the time - these days? Not at all 10/12/2024 Exercise Vital Sign Answer Date Recorde d On average, how many days pe r week do you engage in moderate to strenuous exercise (like a brisk walk)? 5 days 10/12/2024 On average, how many minutes do you engage in exercise at this level? 50 min 10/12/2024 Adolescent Education Answer Date Record ed Getting School Help Needed Not on file 08/08 Food Insecurity Answer Date Recorded Within the past 12 months, d id you worry that your food would run out before you got money to buy more? No 10/12/2024 Within the past 12 months, d id the food you bought just not last and you didn t have money to get more? No 10/12/2024 Housing Stability Answer Date Recorded Do you have housing? (Mavis perales is defined as stable permanent housing and does not include staying ouside in a car, in a tent, in an abandoned building, in an overnight senior living, or couch-surfing.) Yes 10/12/2024 Are you worried about losing your housing? No 10/12/2024 Financial Resource Strain Answer Date R ecorded Within the past 12 months, h ave you or your family members you live with been unable to get utilities (heat, electricity) when it was really needed? No 10/12/2024 Transportation Needs Answer Date Record ed Within the past 12 months, h as lack of transportation kept you from medical appointments, getting your medicines, non-medical meetings or appointments, work, or from getting things that you need? No 10/12/2024 Interpersonal Safety Answer Date Record ed Do you feel physically and e motionally safe where you currently live? Yes 10/17/2024 Within the past 12 months, h ave you been hit, slapped, kicked or otherwise physically hurt by someone? No 10/17/2024 Within the past 12 months, h ave you been humiliated or emotionally abused in other ways by your partner or ex-partner? No 10/17/2024 Comments No Sex and Gender Information Value Date Recorded Sex Assigned at Female 03/19/2022 8:51 PM CDT Legal Sex Female 5:08 AM CNC SERVICE TECHNICIAN Gender Identity Female 03/19/2022 8:51 PM CDT Sexual Orientation Not on file Last Filed Vital Signs Vital Sign Reading Time Taken Comments Blood Pressure 138/88 01/19/2025 1:17 PM CDT Pulse 68 01/19/2025 12:55 PM CDT Temperature 36.1 C (97 F) 01/19/2025 12:55 PM CDT Respiratory Rate 18 01/19/2025 12:55 PM CDT Oxygen Saturation 99% 01/19/2025 12:55 PM CDT Inhaled Oxygen Concentration - - Weight 72.7 kg (160 lb 3.2 oz) 01/19/2025 12:55 PM CDT Height 167.6 cm (5' 6) 10/17/2024 10:45 AM CNC SERVICE TECHNICIAN Body Mass Index 25.86 10/17/2024 10:45 AM CNC SERVICE TECHNICIAN Plan of Treatment Upcoming Encounters Date Type Department Care Team (Late st Contact Info) Description 02/04/2025 1:00 PM CDT Appointment [facility] [address] [place] [phone] Belinda Brunson, GEM CARVER [address] [place], [place] [address] 02/06/2025 8:15 AM CDT Lab [facility] [address] [place] [phone] 10/26/2025 9:30 AM CNC SERVICE TECHNICIAN Office Visit [address] [phone] Belinda Brunson, GEM CARVER [address] [place] [address] [phone] Health Maintenance Due Date Last Done Comments CT COLONOGRAPHY 1955 FIT 1955 FLEX SIG 1955 sDNA (Cologuard) 1955 RSV VACCINE (1 - Risk 60-74 years 1-dose series) 2017 COVID-19 Vaccine ( season) 2024 11/21/2021, 01/26/2021, 01/05/2021 HPV FOLLOW-UP 08/29/2025 08/29/2022, 06/12, 04/19/2015 PAP FOLLOW-UP 08/29/2025 08/29/2022, 06/12, 04/19/2015, Additional history exists ANNUAL REVIEW OF HM ORDERS 09/29/202509/29, 09/27/2023, 08/29/2022, Additional history exists FALL RISK ASSESSMENT 10/17/2025 10/17/2024, 10/02/2023, 09/25/2023 LIPID 10/17/2025 10/17/2024, 03/12, 08/29/2022, Additional history exists MEDICARE ANNUAL WELLNESS VISIT 10/17/2025 10/17/2024, 10/02/2023, 08/29/2022, Additional history exists TSH W/FREE T4 REFLEX 10/17/2025 10/17/2024, 12/18/2023, 09/27/2023, Additional history exists BMP 01/19/2026 01/19/2025, 04/2024, 12/18/2023, Additional history exists MAMMO SCREENING 10/03/2026 10/03/2024, 09/12, 08/16/2022, Additional history exists DIABETES SCREENING 01/20/2028 01/19/2025, 1 12/18/2023, 12/18/2023, Additional history exists DTAP/TDAP/TD IMMUNIZATION (3 - Td or Tdap) 04/03/2028 04/03/2018, 11/15/2007, 06/10/1996 ADVANCE CARE PLANNING 10/17/2029 10/17/2024 , 08/29/2022, 02/20/2014, Additional history exists COLONOSCOPY 08/16/2030 08/16/2020, 1003/2020, 04/03/2014, Additional history exists COLORECTAL CANCER SCREENING 08/16/2030 DEXA 06/14/2038 06/14/2023, 01/29/2012 HEPATITIS C SCREENING Completed 11/24/2010 ZOSTER IMMUNIZATION Completed 10/07/2018, 8 PAP Discontinued 08/29/2022, 06/12, 04/19/2015, Additional history exists Pneumococcal Vaccine: 50+ Years Completed 12/04/2022 INFLUENZA VACCINE Completed 08/15/2024, , 08/29/2022, Additional history exists PHQ-2 (once per calendar year) Completed 01/19/2025, 10/17/2024, 12/17/2023, Additional history exists HPV IMMUNIZATION Aged Out No longer e ligible based on patient's age to complete this topic MENINGITIS IMMUNIZATION Aged Out No l onger eligible based on patient's age to complete this topic Procedures Procedure Name Priority Date/Time Associated Diagnosis Comments COMPREHENSIVE METABOLIC PANEL Routine 01/19/2025 1:37 PM CDT Epigastric pain LIPASE Routine 01/19/2025 1:37 PM CDT Epigastric pain TSH WITH FREE T4 REFLEX Routine 10/17/2024 11:37 AM CNC SERVICE TECHNICIAN Hypothyroidism, unspecified type LIPID REFLEX TO DIRECT LDL PANEL Routine 10/17/2024 11:37 AM CNC SERVICE TECHNICIAN Mixed hyperlipidemia MA SCREENING BILATERAL W/ RON Routine 10/03/2024 9:37 AM CNC SERVICE TECHNICIAN Visit for screening mammogram DX BONE DENSITY Routine 06/14/2023 4:40 PM CDT Screening for condition Postmenopausal status HPV HIGH RISK TYPES DNA CERVICAL Routine 08/29/2022 8:52 AM CDT Cervical cancer screening GYNECOLOGIC CYTOLOGY Routine 08/29/2022 8:52 AM CDT Cervical cancer screening COLONOSCOPY - HIM SCAN 08/16/2020 12:00 AM CDT HEPATITIS C ANTIBODY Routine 11/24/2010 10:55 AM CNC SERVICE TECHNICIAN from Last 3 Months or Most Recently Relevant to Health Maintenance Results * Lipase (01/19/2025 1:37 PM CDT) Lipase 45 13 - 60 U/L 01/20/2025 3:08 PM CDT [facility] Blood BLOOD SPECIMEN / Unknown Venipuncture / Unknown 01/19/2025 1:37 PM CDT 01/19/2025 1:37 PM CDT us Belinda Brunson GEM CARVER LAB - BLOOD ORDERABLES Fi nal Result [facility] [address] [place] [address], [facility] * (ABNORMAL) Comprehensive metabolic panel (BMP + Alb, Alk Phos, ALT, AST, Total. Bili, TP) (01/19/2025 1:37 PM CDT) Sodium 136 135 - 145 mmol/L 01/20/2025 3:08 PM CDT [facility] Potassium 5.0 3.4 - 5.3 mmol/L 01/20/2025 3:08 PM CDT [facility] Carbon Dioxide (CO2) 25 22 - 29 mmol/L 01/20/2025 3:08 PM CDT [facility] Anion Gap 10 7 - 15 mmol/L 01/20/2025 3:08 PM CDT [facility] Urea Nitrogen 7.9(L) 8.0 - 23.0 mg/dL 01/20/2025 3:08 PM CDT [facility] Creatinine 0.95 0.51 - 0.95 mg/dL 01/20/2025 3:08 PM CDT [facility] GFR Estimate 65 >60 mL/min/1.7 3m2 01/20/2025 3:08 PM CDT [facility] Comment:eGFR calculated us2020 CKD-EPI equation. Calcium 9.5 8.8 - 10.4 mg/dL 01/20/2025 3:08 PM CDT [facility] Chloride 101 98 - 107 mmol/L 01/20/2025 3:08 PM CDT [facility] Glucose 90 70 - 99 mg/dL 01/20/2025 3:08 PM CDT [facility] Alkaline Phosphatase 71 40 - 150 U/L 01/20/2025 3:08 PM CDT [facility] AST 25 0 - 45 U/L 01/20/2025 3:08 PM CDT [facility] ALT 16 0 - 50 U/L 01/20/2025 3:08 PM CDT [facility] Protein Total 7.2 6.4 - 8.3 g/dL 01/20/2025 3:08 PM CDT [facility] Albumin 4.4 3.5 - 5.2 g/dL 01/20/2025 3:08 PM CDT [facility] Bilirubin Total 0.2 <=1.2 mg/dL 01/20/2025 3:08 PM CDT [facility] Blood BLOOD SPECIMEN / Unknown Venipuncture / Unknown 01/19/2025 1:37 PM CDT 01/19/2025 1:37 PM CDT Belinda Brunson CNP LAB - BLOOD ORDERABLES Fi nal Result [facility] [address] [place] [address], [facility] * TSH with free T4 reflex (10/17/2024 11:37 AM CNC SERVICE TECHNICIAN) TSH 2.34 0.30 - 4.20 uIU/mL 10/17/2024 9:44 PM CNC SERVICE TECHNICIAN [facility] Blood BLOOD SPECIMEN / Unknown Venipuncture / Unknown 10/17/2024 11:37 AM CNC SERVICE TECHNICIAN 10/17/2024 11:37 AM CNC SERVICE TECHNICIAN Belinda Brunson CNP LAB - BLOOD ORDERABLES Fi nal Result [facility] [address] [facility], Room [address] [phone] * (ABNORMAL) Lipid panel reflex to direct LDL Non-fasting (10/17/2024 11:37 AM CNC SERVICE TECHNICIAN) Cholesterol 252(H) <200 mg/dL 10/17/2024 9:44 PM CNC SERVICE TECHNICIAN [facility] Triglycerides 164(H) <150 mg/dL 10/17/2024 9:44 PM CNC SERVICE TECHNICIAN [facility] Direct Measure HDL 65 >=50 mg/dL 10/17/2024 9:44 PM CNC SERVICE TECHNICIAN [facility] LDL Cholesterol Calculated 154(H) <100 mg/dL 10/17/2024 9:44 PM CNC SERVICE TECHNICIAN [facility] Non HDL Cholesterol 187(H) <130 mg/dL 10/17/2024 9:44 PM CNC SERVICE TECHNICIAN [facility] Patient Fasting > 8hrs? Yes 10/17/2024 9:44 PM CNC SERVICE TECHNICIAN [facility] Blood BLOOD SPECIMEN / Unknown Venipuncture / Unknown 10/17/2024 11:37 AM CNC SERVICE TECHNICIAN 10/17/2024 11:37 AM CNC SERVICE TECHNICIAN Narrative [facility] - 10/17/2024 9:44 PM CNC SERVICE TECHNICIAN Cholesterol Desirable: < 200 mg/dL Borderline High: 200 - 239 mg/dL High: >= 240 mg/dL Triglycerides Normal: < 150 mg/dL Borderline High: 150 - 199 mg/dL High: 200-499 mg/dL Very High: >= 500 mg/dL Direct Measure HDL Female: >= 50 mg/dL Male: >= 40 mg/dL LDL Cholesterol Desirable: < 100 mg/dL Above Desirable: 100 - 129 mg/dL Borderline High: 130 - 159 mg/dL High: 160 - 189 mg/dL Very High: >= 190 mg/dL Non HDL Cholesterol Desirable: < 130 mg/dL Above Desirable: 130 - 159 mg/dL Borderline High: 160 - 189 mg/dL High: 190 - 219 mg/dL Very High: >= 220 mg/dL us Belinda Brunson CNP LAB - BLOOD ORDERABLES Fi nal Result [facility] [address] [facility], [address] [phone] * MA Screening Bilateral w/ Ron (10/03/2024 9:37 AM CNC SERVICE TECHNICIAN) Anatomical Region Laterality Modality Breast Bilateral Mammography Impressions 10/06/2024 9:36 AM CNC SERVICE TECHNICIAN IMPRESSION: ACR BI-RADS Category 1: Negative BREAST CANCER SCREENING RECOMMENDATION: Routine yearly mammography beginning at age 40 or as discussed with your provider. The results and recommendations of this examination will be communicated to the patient. Denise Alvarez MD Narrative 10/06/2024 9:36 AM CNC SERVICE TECHNICIAN BILATERAL FULL FIELD DIGITAL SCREENING MAMMOGRAM WITH TOMOSYNTHESIS Performed on: 10/03/24 Compared to: 09/28/2023, 08/16/2022, and 08/01/2021 Technique: This study was evaluated with the assistance of Computer-Aided Detection. Breast Tomosynthesis was used in interpretation. Findings: The breasts are heterogeneously dense, which may obscure small masses. There is no radiographic evidence of malignancy. us Belinda Brunson CNP IMG MAMMOGRAPHY ORDERABLE S Final Result * DX Hip/Pelvis/Spine (06/14/2023 4:40 PM CDT) Anatomical Region Laterality Modality Dexa Bone Mineral Den sity Narrative 06/16/2023 2:36 PM CDT BONE DENSITOMETRY [address] [address] 06/14/2023 PATIENT: Leatha Ceballos CHART: [id number] : 1955 AGE: [age] year old SEX: female REFERRING PROVIDER: Shirin Rendon MD PROCEDURE: Bone density scanning was performed using DXA technology of the lumbar spine and hip. Scanning was performed on a Netsize scanner. Reporting is completed in the form of a T-score. The T-score represents the standard deviation from peak bone mass based on a young healthy adult. REFERENCE T-SCORES: Normal -1.0 and greater Osteopenia Between -1.0 and -2.5 Osteoporosis -2.5 and less RISK FACTORS: Post-menopausal, Height loss of 2 inches, follow up Low Bone Density (osteopenia) CURRENT TREATMENT: Calcium, Vitamin D FINDINGS: Lumbar Spine (L1-L4) T-score: -1.0, marked degenerative changes present Left Femoral Neck T-score: -2.0 Right Femoral Neck T-score: -1.4 Lumbar (L1-L4) BMD: 1.076 Previous: 1.147 Total Hip Mean BMD: 0.833 Previous: 0.925 Comparison is made to another DXA performed on the same Netsize machine on 01/29/2012. IMPRESSION Low Bone Density (osteopenia). Degenerative changes at the lumbar spine may falsely elevate results. There has been significant decrease in bone density of the lumbar spine. There has been significant decrease in bone density of the hip(s). Recommendations include ensuring adequate Calcium and Vitamin D. The current NOF Guidelines recommend treatment for patients with prior hip or vertebral fracture, T-score -2.5 or below, or 10 year risk of any major osteoporotic fracture 20% or greater, or 10 year risk of hip fracture 3% or greater as calculated using the FRAX calculator (www.shef.ac.uk/FRAX or you can google FRAX). This patient's risks based on available information, with the use of FRAX, are 11 % for major osteoporotic fracture and 1.7 % for hip fracture. Based on these guidelines, treatment (in addition to calcium and vitamin D) is not recommended for this patient, after ruling out other causes of osteoporosis. This is meant as an aid to clinical decision making; one must still use clinical judgement. Follow up can be considered in 3 years. Loni Miles M.D. Electronically signed us Shirin Rendon MD IMG DEXA ORDERABLES Final Result * Pap Screen with HPV - recommended age 30 - 65 years (08/29/2022 8:52 AM CDT) Interpretation Negative for Intraepithelial Lesion or Malignancy (NILM) 08/31/2022 10:28 AM CDT [facility] Comment Papanicolaou Test Limitations: Cervical cytology is a screening test with limited sensitivity, and regular screening is critical for cancer prevention. Pap tests are primarily effective for the diagnosis/prevent ion of squamous cell carcinoma, not adenocarcinoma or other cancers. 08/31/2022 10:28 AM CDT [facility] Specimen Adequacy Satisfactory for evaluation, endocerv/transfor mation zone component absent, atrophy 08/31/2022 10:28 AM CDT [facility] Clinical Information none 08/31/2022 10:28 AM CDT [facility] Reflex Testing Yes regardless of result 08/31/2022 10:28 AM CDT [facility] Previous Abnormal? No 08/31/2022 10:28 AM CDT [facility] Performing Labs The technical component of this testing was completed at [facility] 08/31/2022 10:28 AM CDT [facility] Brushing CERVIX UTERI STRUCTURE / Unknown Non-blood Collection / Unknown 08/29/2022 8:52 AM CDT 08/29/2022 9:12 AM CDT us Shirin GONZALEZ - BEAKER AP Final Result [facility] Specialty Lab [address], [address] [place] [address], [facility] [phone] * HPV High Risk Types DNA Cervical (08/29/2022 8:52 AM CDT) Other HR HPV Negative Negative 09/04/2022 12:44 PM CDT [facility] HPV16 DNA Negative Negative 09/04/2022 12:44 PM CDT [facility] HPV18 DNA Negative Negative 09/04/2022 12:44 PM CDT [facility] FINAL DIAGNOSIS This patient's sample is negative for HPV DNA. This test was developed and its performance characteristics determined by the [facility], [facility]. It has not been cleared or approved by the FDA. The laboratory is regulated under CLIA as qualified to perform high-complexity testing. This test is used for clinical purposes. It should not be regarded as investigational or for research. METHODOLOGY: The Elo Anibal 4800 system uses automated extraction, simultaneous amplification of HPV (L1 region) and beta-globin, followed by real time detection of fluorescent labeled HPV and beta globin using specific oligonucleotide probes. The test specifically identifies types HPV 16 DNA and HPV 18 DNA while concurrently detecting the rest of the high risk types (31, 33, 35, 39, 45, 51, 52, 56, 58, 59, 66 or 68). COMMENTS: This test is not intended for use as a screening device for woman under age 30 with normal cervical cytology. Results should be correlated with cytologic and histologic findings. Close clinical followup is recommended. 09/04/2022 12:44 PM CDT [facility] Brushing CERVIX UTERI STRUCTURE / Unknown Non-blood Collection / Unknown 08/29/2022 8:52 AM CDT 09/01/2022 9:37 AM CDT us Shirin Rendon MD LAB - BLOOD ORDERABLES Final Res ult [facility] [address], [address] [place] [address], [facility] [phone] * COLONOSCOPY - HIM SCAN (08/16/2020 12:00 AM CDT) 08/16/2020 us Provider Outside PROCEDURES Final Result * Hepatitis C antibody (11/24/2010 10:55 AM CNC SERVICE TECHNICIAN) Hepatitis C Antibody Negative NEG [facility] Blood specimen (specimen) 11/24/2010 10:55 AM CNC SERVICE TECHNICIAN 11/24/2010 11:01 AM CNC SERVICE TECHNICIAN Alexandro Neves MD LAB - BLOOD ORDERABLES Final Result [facility] [address] [place] [address] from Last 3 Months or Most Recently Relevant to Health Maintenance Insurance [employer] MED[employer]ARE Care Teams Research Physiologist Relationship Specialty Start Date End Date Belinda Brunson CNP [address] [place] [address] [id number] PCP - General Nurse Practitioner - Family 10/16/24 Junior Flores MD [address] [facility], [address] [address] Assigned OBGYN Provider 10/27/23 Belinda Brunson CNP [address] [place] [id number] Assigned PCP 11/03/24
--- OUTSIDE RECORDS SUMMARY | 2025-01-28 13:19 | XMS_ITS | Encounter Summary ---
Author Organization [facility] Address [address] [place] [address] Care Team Providers Care E Tailer Name Role Phone Loretta Grove MD Primary Care Provider [phone] Loretta Grove MD Unavailable [phone] Terrance GudinoM Unavailable [phone] Yvonne Bailey MD Unavailable [phone] Loretta Grove MD Unavailable [phone] Beverley Leonard OD Unavailable [phone] Shirin Rendon MD Unavailable Loretta Grove MD Unavailable [phone] Junior Flores MD Unavailable Belinda Brunson CNP Primary Care Provider [phone] Belinda Brunson CNP Unavailable [phone] Encounter Details Date Type Department Care Team (Late st Contact Info) Description 03/22/2020 MyC Medical Advice [facility] [address] [place] [address] Maria Alejandra Sung APRN SILK BRUSHER [address] [place] [address] Social History Tobacco Use Types Packs/Day Years Used Date Smoking Tobacco: Never Smokeless Tobacco: Never Alcohol Use Standard Drinks/Week Comments Yes 0 (1 standard drink = 0.6 oz pur e alcohol) wine sometimes PHQ-2 Answer Date Recorded PHQ-2 Score 0 11/20/2018 Comments No Sex and Gender Information Value Date Recorded Sex Assigned at Female 03/19/2022 8:51 PM CDT Legal Sex Female 5:08 AM ROLLWAY MAN Gender Identity Female 03/19/2022 8:51 PM CDT Sexual Orientation Not on file COVID-19 Exposure Response Date Recorded In the last month, have you been in contact with someone who was confirmed or suspected to have Coronavirus / COVID-19? No / Unsure 03/24/2020 8:31 AM CDT documented as of this encounter Plan of Treatment Upcoming Encounters Date Type Department Care Team (Late st Contact Info) Description 02/04/2025 1:[address] [facility] [address] [facility] [address] [place] [phone] Belinda Brunson, SILK BRUSHER [address] [place] [address] 02/06/2025 8:15 AM CDT Lab [facility] [address] [place] [phone] 10/26/2025 9:30 AM ROLLWAY MAN Office Visit [address] [phone] Belinda Brunson, SILK BRUSHER [address] [place] [address] documented as of this encounter Visit Diagnoses Not on filedocumented in this encounter Additional Health Concerns Infection Onset Date Last Indicated Resolved Time Rule Out C-difficile 04/08/2023 04/08/2023 023 3:47 PM CDT Assessment Noted Time PHQ-9 Depression Total Score: 0 03/27/20 19 9:42 AM CDT documented as of this encounter Care Teams E Tailer Relationship Specialty [place] [address] [place] [address] PCP - General Family Practice 11/16/15 10/15/24 Belinda Brunson, SILK BRUSHER [address] [place] [address] PCP - General Nurse Practitioner - Family 10/16/24 [place] [address] [place] [address] Assigned PCP 11/21/15 04/06/21 Terrance Gudino DPM [address] [facility] [address] [place] [address] Assigned Musculoskeletal Provider 09/03/20 10/05/20 Yvonne Bailey MD [address] [place] [address] [place] [address] Assigned PCP 04/07/21 04/16/21 [place] [address] [place] [address] Assigned PCP 04/17/21 09/08/22 Beverley Leonard OD [address] [place] [address] [place] [address] Assigned Surgical Provider 10/02/21 12/31/21 [place] [address] [place] [address] Assigned PCP 09/09/22 10/12/23 [place] [address] [place] [address] Assigned PCP 10/13/23 11/02/24 Junior Flores MD [address] [facility] [address] [place] [address] Assigned OBGYN Provider 10/27/23 Belinda Brunson, SILK BRUSHER [address] [place] [address] Assigned PCP 11/03/24 documented as of this encounter
--- OUTSIDE RECORDS SUMMARY | 2025-01-28 13:19 | XMS_ITS | Encounter Summary ---
Author Organization [facility] Address [address] [place] [address] Care Team Providers Care Elevator Operator Name Role Phone Loretta Grove MD Primary Care Provider [phone] Loretta Grove MD Unavailable [phone] Terrance GudinoM Unavailable [phone] Yvonne Bailey MD Unavailable [phone] Loretta Grove MD Unavailable [phone] Beverley Loenard OD Unavailable [phone] Shirin Rendon MD Unavailable Loretta Grove MD Unavailable [phone] Junior Flores MD Unavailable [phone] Belinda Brunson CNP Primary Care Provider [phone] Belinda Brunson CNP Unavailable [phone] Reason for Visit * Reason Onset Date Comments MyChart Communication 09/16/2020 Encounter Details Date Type Department Care Team (Late st Contact Info) Description 09/16/2020 MyC Medical [facility] [address] [place] [phone] [place] [address] [place] [address] MyChart Communication Social History Tobacco Use Types [...] PM CDT Legal Sex Female 5:08 AM DAY CARE HOME PROVIDER Gender Identity Female 03/19/2022 8:51 PM CDT Sexual Orientation Not on file documented as of this encounter Plan of Treatment Upcoming Encounters Date Type Department Care Team (Late st Contact Info) Description 02/04/2025 1:[address] [facility] Imaging [address] [facility] [address] [place] [phone] Belinda Brunson, ROTARY ENGINE ASSEMBLER [address] [place] [address] 02/06/2025 8:15 AM CDT Lab [facility] [address] [place] [phone] 10/26/2025 9:30 AM DAY CARE HOME PROVIDER Office Visit [address] [phone] Belinda Brunson, ROTARY ENGINE ASSEMBLER [address] [place] [address] documented as of this encounter Visit Diagnoses Not on filedocumented in this encounter Additional Health Concerns Infection Onset Date Last Indicated Resolved Time Rule Out C-difficile 04/08/2023 04/08/2023 023 3:47 PM CDT Assessment Noted Time PHQ-9 Depression Total Score: 0 03/27/20 19 9:42 AM CDT documented as of this encounter Care Teams Elevator Operator Relationship Specialty [place] [address] [place] [address] PCP - General Family Practice 11/16/15 10/15/24 Belinda Brunson, ROTARY ENGINE ASSEMBLER [address] [place] [address] PCP - General Nurse Practitioner - Family 10/16/24 [place] [address] [place] [address] Assigned PCP 11/21/15 04/06/21 Terrance Gudino DPM [address] [facility] [address] [place] [address] Assigned Musculoskeletal Provider 09/03/20 10/05/20 Yvonne Bailey MD [address] [place] [address] [place] [address] Assigned PCP 04/07/21 04/16/21 [place] [address] [place] [address] Assigned PCP 04/17/21 09/08/22 Beverley Leonard OD [address] [place] [address] [place] [address] Assigned Surgical Provider 10/02/21 12/31/21 [place] [address] [place] [address] Assigned PCP 09/09/22 10/12/23 [place] [address] [place] [address] Assigned PCP 10/13/23 11/02/24 Junior Flores MD [address] [facility], [address] [address] Assigned OBGYN Provider 10/27/23 Belinda Brunson, ROTARY ENGINE ASSEMBLER [address] [place] [address] Assigned PCP 11/03/24 documented as of this encounter
--- OUTSIDE RECORDS SUMMARY | 2025-01-28 13:19 | XMS_ITS | Clinical Summary ---
Author Organization [facility] Address [address] [place] [address] Care Team Providers Care Head Of Biology Name Role Phone Unavailable Primary Care Provider Unavailabl e Allergies Active Allergy Reactions Criticality Noted Date Comments Iodine Hives 11/15/2007 Medications multivitamin (MVI) tablet Take 1 tablet by mouth once daily. 0 08/25/2010 Active predniSONE (DELTASONE) 20 mg tabletIndication s:LLQ abdominal pain Take 1 tablet by mouth 2 times daily with meals for 5 days then once daily for 2 days. 12 tablet 0 11/07/2015 Active Active Problems Problem Noted Date Diagnosed Date Depression with anxiety 08/25/2010 Routine health maintenance 08/25/2010 Overview (08/25/2010): Physical: 05/2007 Pap smear: 05/2007 Immunizations Immunization Administration Dates Next Due Influenza, IIV3 (Age >=3 years) 09/26/19 99,09/22/1998,09/29/1997,09/25/1996, 10/01/1995 Td (Age >=7 Years) 06/10/1996 Tdap 11/15/2007 Family History Medical History Relation Name Comments Heart Disease Father [place] Cancer-breast Mother Hypertension Mother Stroke Mother Relation Name Status Comments Father Mother Social History Tobacco Use Types Packs/Day Years Used Date Smoking Tobacco: Never Smokeless Tobacco: Never Alcohol Use Standard Drinks/Week Comments No 0 (1 standard drink = 0.6 oz pur e alcohol) Comments No Sex and Gender Information Value Date Recorded Sex Assigned at Not on file Legal Sex Female 5:23 AM BUILDING MECHANIC Gender Identity Not on file Sexual Orientation Not on file Obstetrics History Last Filed Vital Signs Vital Sign Reading Time Taken Comments Blood Pressure 154/100 11/07/2015 3:44 PM BUILDING MECHANIC Pulse 66 11/07/2015 3:44 PM BUILDING MECHANIC Temperature 36.9 C (98.5 F) 11/07/2015 3:44 PM BUILDING MECHANIC Respiratory Rate 14 11/07/2015 3:44 PM BUILDING MECHANIC Oxygen Saturation 98% 11/07/2015 3:44 PM BUILDING MECHANIC Inhaled Oxygen Concentration - - Weight 73.9 kg (163 lb) 11/07/2015 3:44 PM BUILDING MECHANIC Height 169.5 cm (5' 6.75) 11/07/2015 3:44 PM CS T Body Mass Index 25.72 11/07/2015 3:44 PM BUILDING MECHANIC Plan of Treatment Health Maintenance Due Date Last Done Comments Depression screening for age 12+ 1969 BMI (ht and wt on same day) for age 18+ 1975 Hepatitis C screening for ag e 18-79 1975 Colonoscopy through age 75 2002 Pneumococcal series for age 50+ (1 of 1 - PCV) 2007 Zoster (shingles) series for age 50+ (1 of 2) 2007 Mammogram for age 45-75 06/09/2010 06/09/2009, 12/12 Lipids for age 45-75 03/15/2011 03/15/2006 Tetanus booster 11/15/2017 11/15/2007, 06/10/1996 DEXA/DXA scan for age 65+ 2022 COVID-19 vaccine series ( season) 2024 11/21/2021, 01/26/2021, 01/05/2021 Influenza Vaccine (#1) 2024 9, 09/22/1998, 09/29/1997, Additional history exists RSV vaccine for adults or (1 - 1-dose 75+ series) 2032 Tdap Completed 11/15/2007 Procedures Procedure Name Priority Date/Time Associated Diagnosis Comments SCAN-MAMMOGRAPHY REPORT 06/09/2009 12:00 AM CDT LIPID PANEL Timed 03/15/2006 9:36 AM CDT from Last 3 Months or Most Recently Relevant to Health Maintenance Results * SCAN-MAMMOGRAPHY REPORT (06/09/2009 12:00 AM CDT) Anatomical Region Laterality Modality Other Narrative Procedure Note Scanner - 06/09/2009 12:00 AM CDT us Scanner OTHER Final Result * (ABNORMAL) LIPID PANEL (03/15/2006 9:36 AM CDT) CHOLESTEROL,TOTAL 207(H) 110 - 199 mg/dL [facility] TRIGLYCERIDES 124 <150 mg/dL [facility] HDL CHOLESTEROL 68 >40 mg/dL [facility] CHOL/HDL RATIO 3.04 <4.51 [facility] LDL CHOLESTEROL 114 <131 mg/dL [facility] PATIENT STATUS Non-Fasti ng [facility] 03/15/2006 9:36 AM CDT 03/15/2006 9:28 AM CDT us Nigel Patel MD CHEMISTRY Final Result [facility] [address] [place] [address] from Last 3 Months or Most Recently Relevant to Health Maintenance Insurance #[id number] [place] [address] [facility]
--- OUTSIDE RECORDS SUMMARY | 2025-01-28 13:19 | XMS_ITS | Encounter Summary ---
Author Organization [facility] Address [address] [place] [address] Care Team Providers Care Varnishing Unit Tool Setter Name Role Phone Loretta Grove MD Primary Care Provider [phone] Loretta Grove MD Unavailable [phone] Beverley Leonard OD Unavailable Shirin Rendon MD Unavailable Loretta Grove MD Unavailable [phone] Junior Flores MD Unavailable Belinda Brunson CNP Primary Care Provider [phone] Belinda Brunson CNP Unavailable [phone] Encounter Details Date Type Department Care Team (Late st Contact Info) Description 07/14/2021 MyC Medical Advice [facility] [address] [place] [address] Skyla Chua Social History Tobacco Use Types Packs/Day Years Used Date Smoking Tobacco: Never Smokeless Tobacco: Never Alcohol Use Standard Drinks/Week Comments Yes 0 (1 standard drink = 0.6 oz pur e alcohol) wine sometimes PHQ-2 Answer Date Recorded PHQ-2 Score 0 04/15/2021 Comments No Sex and Gender Information Value Date Recorded Sex Assigned at Female 03/19/2022 8:51 PM CDT Legal Sex Female 5:08 AM MIRROR PAINTER Gender Identity Female 03/19/2022 8:51 PM CDT Sexual Orientation Not on file documented as of this encounter Plan of Treatment Upcoming Encounters Date Type Department Care Team (Late st Contact Info) Description 02/04/2025 1:[address] [facility] [address] [facility] [address] [place] [phone] Belinda Brunson, LALO [address] [place] [phone] 02/06/2025 8:15 AM CDT Lab [facility] [address] [place] [phone] 10/26/2025 9:30 AM MIRROR PAINTER Office Visit [address] [phone] Belinda Brunson, LALO [address] [place] [address] documented as of this encounter Visit Diagnoses Not on filedocumented in this encounter Additional Health Concerns Infection Onset Date Last Indicated Resolved Time Rule Out C-difficile 04/08/2023 04/08/2023 023 3:47 PM CDT Assessment Noted Time PHQ-9 Depression Total Score: 0 03/27/20 19 9:42 AM CDT documented as of this encounter Care Teams Varnishing Unit Tool Setter Relationship Specialty [place] [address] [place] [address] PCP - General Family Practice 11/16/15 10/15/24 Belinda Brunson CNP [address] [place] [address] PCP - General Nurse Practitioner - Family 10/16/24 [place] [address] [place] [address] Assigned PCP 04/17/21 09/08/22 Beverley Leonard OD [address] [place] [address] Assigned Surgical Provider 10/02/21 12/31/21 [place] [address] [place] [address] Assigned PCP 09/09/22 10/12/23 [place] [address] [place] [address] Assigned PCP 10/13/23 11/02/24 Junior Flores MD [address] [address] Assigned OBGYN Provider 10/27/23 Belinda Brunson, KILN FIREMAN [address] [place] [address] Assigned PCP 11/03/24 documented as of this encounter
--- OUTSIDE RECORDS SUMMARY | 2025-01-28 13:19 | XMS_ITS | Encounter Summary ---
Author Organization [place] Address [address] [place] [address] Care Team Providers Care Distributing Clerk Name Role Phone Loretta Grove MD Primary Care Provider [phone] Loretta Grove MD Unavailable [phone] Beverley Leonard OD Unavailable Shirin Rendon MD Unavailable Loretta Grove MD Unavailable [phone] Junior Flores MD Unavailable Belinda Brunson CNP Primary Care Provider [phone] Belinda Brunson CNP Unavailable [phone] Encounter Details Date Type Department Care Team (Late st Contact Info) Description 10/21/2021 Documentation Only INTERFACED REPORT Unknown, Provider Social History Tobacco Use Types Packs/Day Years Used Date Smoking Tobacco: Never Smokeless Tobacco: Never Alcohol Use Standard Drinks/Week Comments Yes 0 (1 standard drink = 0.6 oz pur e alcohol) wine sometimes PHQ-2 Answer Date Recorded PHQ-2 Score 0 04/15/2021 Comments No Sex and Gender Information Value Date Recorded Sex Assigned at Female 03/19/2022 8:51 PM CDT Legal Sex Female 5:08 AM TRAINING ADMINISTRATOR Gender Identity Female 03/19/2022 8:51 PM CDT Sexual Orientation Not on file COVID-19 Exposure Response Date Recorded In the last month, have you been in contact with someone who was confirmed or suspected to have Coronavirus / COVID-19? No / Unsure 10/22/2021 6:30 AM TRAINING ADMINISTRATOR documented as of this encounter Plan of Treatment Upcoming Encounters Date Type Department Care Team (Late st Contact Info) Description 02/04/2025 1:00 PM CDT Appointment [facility] [address] [facility] [address] [place] [phone] Belinda Brunson, LALO [address] [place] [phone] 02/06/2025 8:15 AM CDT Lab [facility] [address] [place] [phone] 10/26/2025 9:30 AM TRAINING ADMINISTRATOR Office Visit [address] [place] [phone] Belinda Brunson, LALO [address] [place] [phone] documented as of this encounter Visit Diagnoses Not on filedocumented in this encounter Additional Health Concerns Infection Onset Date Last Indicated Resolved Time Rule Out C-difficile 04/08/2023 04/08/2023 023 3:47 PM CDT Assessment Noted Time PHQ-9 Depression Total Score: 0 03/27/20 19 9:42 AM CDT documented as of this encounter Care Teams Distributing Clerk Relationship Specialty [place] [address] [place] [address] PCP - General Family Practice 11/16/15 10/15/24 Belinda Brunson CNP [address] [place] [address] PCP - General Nurse Practitioner - Family 10/16/24 [place] [address] [place] [address] Assigned PCP 04/17/21 09/08/22 Beverley Leonard OD [address] [facility] [place] [address] Assigned Surgical Provider 10/02/21 12/31/21 [place] [address] [place] [address] Assigned PCP 09/09/22 10/12/23 [place] [address] [place] [address] Assigned PCP 10/13/23 11/02/24 Junior Flores MD [address] [address] Assigned OBGYN Provider 10/27/23 Belinda Brunson, HEAD NURSE [address] [place] [address] Assigned PCP 11/03/24 documented as of this encounter
--- OUTSIDE RECORDS SUMMARY | 2025-01-28 13:19 | XMS_ITS | Encounter Summary ---
Author Organization [facility] Address [address] [place] [address] Care Team Providers Care Student Ministries Director Name Role Phone Junior Flores MD Unavailable + [phone] Belinda Brunson CNP Primary Care Provider [phone] Belinda Brunson CNP Unavailable [phone] Reason for Referral * Diagnostic Imaging Ultrasound (Routine) - Pending Review Specialty Diagnoses / Procedures Referred By Hali burns Referred To Contact Radiology. Diagnoses Epigastric pain Procedures US Abdomen Limited Belinda Brunson CNP [address] [place] [address] Phone: tel: fax: Referral ID Status Reason Start Date Expiration Date V isits Requested Visits Authorized [id number] Pending Review 01/19/2025 01/19/2026 1 1 Reason for Visit * Reason Comments Abdominal Pain Encounter Details Date Type Department Care Team (Late st Contact Info) Description 01/19/2025 1:00 PM CDT Office Visit [address] [phone] Belinda Brunson CNP [address] [place] [address] Epigastric pain (Primary Dx); Mixed hyperlipidemia; Chest wall pain Social History Tobacco Use Types Packs/Day Years [...] than three times a week 10/12/2024 Attends Synagogue Services Not on file 10/12 Active Member [...] in an abandoned building, in an overnight nursing home, or couch-surfing.) Yes 10/12/2024 Are you worried [...] PM CDT Legal Sex Female 5:08 AM SODA ROOM OPERATOR Gender Identity Female 03/19/2022 8:51 PM CDT Sexual Orientation Not on file documented as of this encounter Last Filed Vital Signs Vital Sign Reading Time Taken Comments Blood Pressure 138/88 01/19/2025 1:17 PM CDT Pulse 68 01/19/2025 12:55 PM CDT Temperature 36.1 C (97 F) 01/19/2025 12:55 PM CDT Respiratory Rate 18 01/19/2025 12:55 PM CDT Oxygen Saturation 99% 01/19/2025 12:55 PM CDT Inhaled Oxygen Concentration - - Weight 72.7 kg (160 lb 3.2 oz) 01/19/2025 12:55 PM CDT Height - - Body Mass Index 25.86 10/17/2024 10:45 AM SODA ROOM OPERATOR documented in this encounter Progress Notes * Belinda Brunsonth, SEVERITY OF ILLNESS COORDINATOR - 01/19/2025 1:00 PM CDT Assessment & Plan Epigastric pain RUQ tender, imaging and labs. Follow results. - Lipase - Comprehensive metabolic panel (BMP + Alb, Alk Phos, ALT, AST, Total. Bili, TP) - US Abdomen Limited - Lipase - Comprehensive metabolic panel (BMP + Alb, Alk Phos, ALT, AST, Total. Bili, TP) Mixed hyperlipidemia Updated order placed. - Lipid panel reflex to direct LDL Fasting Chest wall pain Refill provided. - cyclobenzaprine (FLEXERIL) 10 MG tablet Dispense: 20 tablet; Refill: 0 See Patient Instructions Subjective Elizabeth is a 69 year old, presenting for the following health issues: Abdominal Pain 01/19/2025 12:48 PM Additional Questions Roomed by Kandace TORRES Accompanied by Self History of Present Illness Reason for visit: Chest wall pain/epigastric pain/elevated BP Symptom onset: 3-7 days ago Symptom intensity: Moderate Symptom progression: Improving Had these symptoms before: Yes Has tried/received treatment for these symptoms: Yes Previous treatment was successful: Yes Prior treatment description: Pain management She is taking medications regularly. Pain History: When did you first notice your pain? 10 days ago Have you seen anyone else for your pain? No How has your pain affected your ability to work? Not applicable Where in your body do you have pain? Chest Pain Onset/Duration: 10 days ago Description: Location: Mainly left but radiates to entire chest Character: achey and hot, radiating into abdomen is tight and boating feeling Radiation: across entire chest and epigastrium Duration: waxing and waning Intensity: moderate Progression of Symptoms: waxing and waning Accompanying Signs & Symptoms: Shortness of breath: No Sweating: No Nausea/vomiting: No Lightheadedness: YES Palpitations: YES, PVCs at BL Fever/Chills: No Cough: No Heartburn: YES History: Family history of heart disease: YES, mother and father Tobacco use: No Previous similar symptoms: YES Precipitating factors: Worse with exertion: No Worse with deep breaths: No Related to eating: No Better with burping: No Elevated BP with symptoms this past weekend Alleviating factors: heat Therapies tried and outcome: tums, flexeril helped last time Constitutional, HEENT, cardiovascular, pulmonary, GI, , musculoskeletal, neuro, skin, endocrine and psych systems are negative, except as otherwise noted. Objective BP 138/88 Pulse 68 Temp 97 ??F (36.1 ??C) (Tympanic) Resp 18 Wt 72.7 kg (160 lb 3.2 oz) SpO2 99% BMI 25.86 kg/m?? Body mass index is 25.86 kg/m??. Physical Exam GENERAL: alert and no distress EYES: Eyes grossly normal to inspection, PERRL and conjunctivae and sclerae normal HENT: ear canals and TM's normal, nose and mouth without ulcers or lesions NECK: no adenopathy, no asymmetry, masses, or scars RESP: lungs clear to auscultation - no rales, rhonchi or wheezes CV: regular rate and rhythm, normal S1 S2, no S3 or S4, no murmur, click or rub, no peripheral edema ABDOMEN: soft, nontender, without hepatosplenomegaly or masses, tenderness epigastric and RUQ, and bowel sounds normal MS: no gross musculoskeletal defects noted, no edema SKIN: no suspicious lesions or rashes NEURO: Normal strength and tone, mentation intact and speech normal PSYCH: mentation appears normal, affect normal/bright Signed Electronically by: Belinda Brunson CNP documented in this encounter Plan of Treatment Upcoming Encounters Date Type Department Care Team (Late st Contact Info) Description 02/04/2025 1:00 PM CDT Appointment [facility] [address] [facility] [address] [place] [phone] Belinda Brunson CNP [address] [place] [address] [phone] 02/06/2025 8:15 AM CDT Lab [facility] [address] [place] [address] [phone] 10/26/2025 9:30 AM SODA ROOM OPERATOR Office Visit [address] [phone] Belinda Brunson, SEVERITY OF ILLNESS COORDINATOR [address] [place], [place] [phone] Scheduled Orders Name Type Priority Associated Diagnoses Orde r Schedule Lipid panel reflex to direct LDL Fasting Lab Routine Mixed hyperlipidemia Expected: 02/06/2025 (Approximate), Expires: 01/19/2026 US Abdomen Limited Imaging Routine Epigastric pain Expected: 01/19/2025 (Approximate), Expires: 01/19/2026 documented as of this encounter Procedures Procedure Name Priority Date/Time Associated Diagnosis Comments LIPASE Routine 01/19/2025 1:37 PM CDT Epigastric pain COMPREHENSIVE METABOLIC PANEL Routine 01/19/2025 1:37 PM CDT Epigastric pain documented in this encounter Results * (ABNORMAL) Comprehensive metabolic panel (BMP + [...] 3:08 PM CDT [facility] Comment:eGFR calculated usin 2020 CKD-EPI equation. Calcium 9.5 8.8 - 10.4 [...] 0.2 <=1.2 mg/dL 01/20/2025 3:08 PM CDT N LABORATORY Blood BLOOD SPECIMEN / Unknown Venipuncture / Unknown 01/19/2025 1:37 PM CDT 01/19/2025 1:37 PM CDT Belinda Brunson CNP LAB - BLOOD ORDERABLES Fi nal Result [facility] [address] * Lipase (01/19/2025 1:37 PM CDT) Lipase 45 13 - 60 U/L 01/20/2025 3:08 PM CDT [facility] Blood BLOOD SPECIMEN / Unknown Venipuncture / Unknown 01/19/2025 1:37 PM CDT 01/19/2025 1:37 PM CDT Belinda Brunson CNP LAB - BLOOD ORDERABLES Fi nal Result [facility] [address] documented in this encounter Visit Diagnoses Diagnosis Epigastric pain- Primary Abdominal pain, epigastric Mixed hyperlipidemia Chest wall pain Painful respiration documented in this encounter Additional Health Concerns Assessment Noted Time PHQ-9 Depression Total Score: 0 03/27/20 19 9:42 AM CDT documented as of this encounter Care Teams Student Ministries Director Relationship Specialty Start Date End Date Belinda Brunson CNP [address] [place] [address] PCP - General Nurse Practitioner - Family 10/16/24 Junior Flores MD [address] [address] Assigned OBGYN Provider 10/27/23 Belinda Brunson CNP [address] [place] [address] Assigned PCP 11/03/24 documented as of this encounter
--- OUTSIDE RECORDS SUMMARY | 2025-01-28 13:19 | XMS_ITS | Encounter Summary ---
Author Organization [facility] Address [address] [place] [address] Care Team Providers Care Vice President Consulting Services Name Role Phone Loretta Grove MD Primary Care Provider [phone] Loretta Grove MD Unavailable [phone] Terrance GudinoM Unavailable [phone] Yvonne Bailey MD Unavailable [phone] Loretta Grove MD Unavailable [phone] Beverley Leonard OD Unavailable Shirin Rendon MD Unavailable Loretta Grove MD Unavailable [phone] Junior Flores MD Unavailable Belinda Brunson CNP Primary Care Provider [phone] Belinda Brunson CNP Unavailable [phone] Encounter Details Date Type Department Care Team (Late st Contact Info) Description 05/21/2020 [facility] [address] [place] [address] [place] [address] [place] [address] Social History Tobacco Use Types Packs/Day Years Used Date Smoking Tobacco: Never Smokeless Tobacco: Never Alcohol Use Standard Drinks/Week Comments Yes 0 (1 standard drink = 0.6 oz pur e alcohol) wine sometimes PHQ-2 Answer Date Recorded PHQ-2 Score 0 11/20/2018 Comments No Sex and Gender Information Value Date Recorded Sex Assigned at Female 03/19/2022 8:51 PM CDT Legal Sex Female 5:08 AM MEDICAL PHYSICS PROFESSOR Gender Identity Female 03/19/2022 8:51 PM CDT Sexual Orientation Not on file COVID-19 Exposure Response Date Recorded In the last month, have you been in contact with someone who was confirmed or suspected to have Coronavirus / COVID-19? No / Unsure 05/20/2020 7:29 AM CDT documented as of this encounter Plan of Treatment Upcoming Encounters Date Type Department Care Team (Late st Contact Info) Description 02/04/2025 1:00 PM CDT Appointment [facility] Imaging [address] [facility] [address] [place] [address] Belinda Brunson, INTERNATIONAL LOGISTICS ANALYST [address] [place] [address] 02/06/2025 8:15 AM CDT Lab [facility] [address] [place] [phone] 10/26/2025 9:30 AM MEDICAL PHYSICS PROFESSOR Office Visit [address] [phone] Belinda Brunson, INTERNATIONAL LOGISTICS ANALYST [address] [place] [address] documented as of this encounter Visit Diagnoses Not on filedocumented in this encounter Additional Health Concerns Infection Onset Date Last Indicated Resolved Time Rule Out C-difficile 04/08/2023 04/08/2023 023 3:47 PM CDT Assessment Noted Time PHQ-9 Depression Total Score: 0 03/27/20 9:42 AM CDT documented as of this encounter Care Teams Vice President Consulting Services Relationship Specialty Start [place] [address] [place] [address] PCP - General Family Practice 11/16/15 10/15/24 Belinda Brunson, LALO [address] [place] [address] PCP - General Nurse Practitioner - Family 10/16/24 [place] [address] [place] [address] Assigned PCP 11/21/15 04/06/21 Terrance Gudino DPM [address] [facility] [address] [place] [address] Assigned Musculoskeletal Provider 09/03/20 10/05/20 [place] [address] [place] [address] [place] [address] Assigned PCP 04/07/21 04/16/21 [place] [address] [place] [address] Assigned PCP 04/17/21 09/08/22 Beverley Leonard OD [address] [place] [address] Assigned Surgical Provider 10/02/21 12/31/21 [place] [address] [place] [address] Assigned PCP 09/09/22 10/12/23 [place] [address] [place] [address] Assigned PCP 10/13/23 11/02/24 Junior Flores MD [address] [facility] [address] [place] [address] Assigned OBGYN Provider 10/27/23 Belinda Brunson, LALO [address] [place] [address] Assigned PCP 11/03/24 documented as of this encounter
--- OUTSIDE RECORDS SUMMARY | 2025-01-28 13:19 | XMS_ITS | Encounter Summary ---
Author Organization [facility] Address [address] [place] [address] Care Team Providers Care Security Guard Supervisor Name Role Phone Loretta Grove MD Primary Care Provider [phone] Loretta Grove MD Unavailable [phone] Beverley Leonard OD Unavailable hSirin Rendon MD Unavailable Loretta Grove MD Unavailable [phone] Junior Flores MD Unavailable Belinda Brunson CNP Primary Care Provider Belinda Brunson CNP Unavailable [phone] Reason for Visit * Reason Onset Date Comments Same Day Appointment 10/21/2021 Encounter Details Date Type Department Care Team (Late st Contact Info) Description 10/21/2021 [facility] [address] [place] [address] [place] [address] [place] [address] Same Day Appointment Social History Tobacco Use Types Packs/Day Years Used Date Smoking Tobacco: Never Smokeless Tobacco: Never Alcohol Use Standard Drinks/Week Comments Yes 0 (1 standard drink = 0.6 oz pur e alcohol) wine sometimes PHQ-2 Answer Date Recorded PHQ-2 Score 0 04/15/2021 Comments No Sex and Gender Information Value Date Recorded Sex Assigned at Female 03/19/2022 8:51 PM CDT Legal Sex Female 5:08 AM TRACK REPAIR WORKER Gender Identity Female 03/19/2022 8:51 PM CDT Sexual Orientation Not on file COVID-19 Exposure Response Date Recorded In the last month, have you been in contact with someone who was confirmed or suspected to have Coronavirus / COVID-19? No / Unsure 10/22/2021 6:30 AM TRACK REPAIR WORKER documented as of this encounter Miscellaneous Notes * Telephone Encounter - Cristin Alejandro - 10/21/2021 12:22 PM TRACK REPAIR WORKER Reason for call: Same Day Appointment Requested Provider: Giovanni Gallo or other Primary Care provider at [facility]. PCP: [email or web address] Reason for visit: Lower right quadrant pain Duration of symptoms: Intermittent for 1 week Have you been treated for this in the past? No Additional comments: Patient is hoping to be worked into the clinic schedule today at [facility] by any provider. Per FNA, patient should be seen today and she is hoping to avoid Urgent care wait times of 3 hours. Please advise. Phone number to reach patient: Home number on file [phone] (home) Best Time: Bernardo Can we leave a detailed message on this number? YES Travel screening: Not Applicable K REPAIR WORKER documented in this encounter Plan of Treatment Upcoming Encounters Date Type Department Care Team (Late st Contact Info) Description 02/04/2025 1:00 PM CDT Appointment [facility] [address] [facility] [address] [place] [address] Belinda Brunson, AMBULETTE DRIVER [address] [place] [address] 02/06/2025 8:15 AM CDT Lab [facility] Laboratory [address] [place] [phone] 10/26/2025 9:30 AM TRACK REPAIR WORKER Office Visit [address] [phone] Belinda Brunson CNP [address] [place] [address] [phone] documented as of this encounter Visit Diagnoses Not on filedocumented in this encounter Additional Health Concerns Infection Onset Date Last Indicated Resolved Time Rule Out C-difficile 04/08/2023 04/08/2023 023 3:47 PM CDT Assessment Noted Time PHQ-9 Depression Total Score: 0 03/27/20 9:42 AM CDT documented as of this encounter Care Teams Security Guard Supervisor Relationship Specialty Start [place] [address] [place] [address] PCP - General Family Practice 11/16/15 10/15/24 Belinda Brunson CNP [address] [place] [address] PCP - General Nurse Practitioner - Family 10/16/24 [place] [address] [place] [address] Assigned PCP 04/17/21 09/08/22 Beverley Leonard OD [address] [facility] [place] [address] Assigned Surgical Provider 10/02/21 12/31/21 [place] [address] [place] [address] Assigned PCP 09/09/22 10/12/23 [place] [address] [place] [address] Assigned PCP 10/13/23 11/02/24 Junior Flores MD [address] [facility], [address] [address] Assigned OBGYN Provider 10/27/23 Belinda Brunson, AMBULETTE DRIVER [address] [place] [address] Assigned PCP 11/03/24 documented as of this encounter
--- OUTSIDE RECORDS SUMMARY | 2025-01-28 13:19 | XMS_ITS | Encounter Summary ---
Author Organization [facility] Address [address] [place] [address] Care Team Providers Care Biometrics Specialist Name Role Phone Loretta Grove MD Primary Care Provider [phone] Loretta Grove MD Unavailable [phone] Beverley Leonard OD Unavailable Shirin Rendon MD Unavailable Loretta Grove MD Unavailable [phone] Junior Flores MD Unavailable Belinda Brunson CNP Primary Care Provider Belinda Brunson CNP Unavailable [phone] Reason for Visit * Reason Onset Date Comments Refill Request 07/13/2021 Encounter Details Date Type Department Care Team (Late st Contact Info) Description 07/13/2021 [facility] Medical Advice [facility] [address] [place] [address] [place] [address] [place] [address] Refill Request Social History Tobacco Use Types Packs/Day Years Used Date Smoking Tobacco: Never Smokeless Tobacco: Never Alcohol Use Standard Drinks/Week Comments Yes 0 (1 standard drink = 0.6 oz pur e alcohol) wine sometimes PHQ-2 Answer Date Recorded PHQ-2 Score 0 04/15/2021 Comments No Sex and Gender Information Value Date Recorded Sex Assigned at Female 03/19/2022 8:51 PM CDT Legal Sex Female 5:08 AM SAFE EXPERT Gender Identity Female 03/19/2022 8:51 PM CDT Sexual Orientation Not on file documented as of this encounter Miscellaneous Notes * Telephone Encounter - Loretta Grove MD - 07/14/2021 12:23 PM CDT Looks like metoprolol refills already sent. Thyroid lab orders in, please help schedule lab only. JH * Telephone Encounter - Roney Ulloa RN - 07/14/2021 7:52 AM CDT Patient will be due for Thyroid lab work in July according to protocol. Patient had appointment w/ PCP 04/15/21 for costochondritis. Please advise on lab work. Roney Benavides RN * Telephone Encounter - Roney Ulloa RN - 07/14/2021 7:52 AM CDT Prescription approved per [facility] Refill Protocol. Roney Benavides RN documented in this encounter Plan of Treatment Upcoming Encounters Date Type Department Care Team (Late st Contact Info) Description 02/04/2025 1:00 PM CDT Appointment [facility] Imaging [address] [facility] [address] [place] [address] Belinda Brunson, WAITER/WAITRESS BAR [address] [place] [address] 02/06/2025 8:15 AM CDT Lab [facility] [address] [place] [phone] 10/26/2025 9:30 AM SAFE EXPERT Office Visit [address] [place] [phone] Belinda Brunson, WAITER/WAITRESS BAR [address] [place] [address] [phone] documented as of this encounter Results * T4, free (08/29/2021 8:24 AM CDT) Free T4 1.02 0.76 - 1.46 ng/dL 08/29/2021 1:02 PM CDT [facility] Blood BLOOD SPECIMEN / Unknown Venipuncture / Unknown 08/29/2021 8:24 AM CDT 08/29/2021 8:24 AM CDT us Loretta Grove MD LAB - BLOOD ORDERABLES Fi nal Result [facility] [address] [place] [address] Lab (no room number, 1st floor of clinic) [place] [address], [facility] [phone] * TSH (08/29/2021 8:24 AM CDT) Pathologist [facility] TSH 2.10 0.40 - 4.00 mU/L 08/29/2021 1:09 PM CDT [facility] Blood BLOOD SPECIMEN / Unknown Venipuncture / Unknown 08/29/2021 8:24 AM CDT 08/29/2021 8:24 AM CDT us Loretta Grove MD LAB - BLOOD ORDERABLES Fi nal Result [facility] [address] [place] [address] Lab (no room number, 1st floor of clinic) [place] [address] [phone] documented in this encounter Visit Diagnoses Diagnosis PVC's (premature ventricular contractions) Other premature beats Acquired hypothyroidism Unspecified hypothyroidism documented in this encounter Additional Health Concerns Infection Onset Date Last Indicated Resolved Time Rule Out C-difficile 04/08/2023 04/08/2023 023 3:47 PM CDT Assessment Noted Time PHQ-9 Depression Total Score: 0 03/27/20 19 9:42 AM CDT documented as of this encounter Care Teams Biometrics Specialist Relationship Specialty [place] [address] [place] [address] PCP - General Family Practice 11/16/15 10/15/24 Belinda Brunson CNP [address] [place] [address] PCP - General Nurse Practitioner - Family 10/16/24 [place] [address] [place] [address] Assigned PCP 04/17/21 09/08/22 Beverley Leonard OD [address] [facility] [place] [address] Assigned Surgical Provider 10/02/21 12/31/21 [place] [address] [place] [address] Assigned PCP 09/09/22 10/12/23 [place] [address] [place] [address] Assigned PCP 10/13/23 11/02/24 Junior Flores MD [address] [address] Assigned OBGYN Provider 10/27/23 Belinda Brunson, LALO [address] [place] [address]382 Assigned PCP 11/03/24 documented as of this encounter
--- OUTSIDE RECORDS SUMMARY | 2025-01-28 13:19 | XMS_ITS | Encounter Summary ---
Author Organization [facility] Address [address] [place] [address] Care Team Providers Care Road Conductor Name Role Phone Junior Flores MD Unavailable Belinda Brunson CNP Primary Care Provider Belinda Brunson CNP Unavailable Encounter Details Date Type Department Care Team (Late st Contact Info) Description 01/28/2025 [facility] Medical Advice [address] [phone] Belinda Brunson CNP [address] [place] [address] Social History Tobacco Use Types Packs/Day Years [...] than three times a week 10/12/2024 Attends [employer] Not on file 10/12 Active Member [...] Answer Date Recorded PHQ-2 Score 0 01/19/2025 [facility] - Occupational [...] in an abandoned building, in an overnight [place], or couch-surfing.) Yes 10/12/2024 Are you worried [...] PM CDT Legal Sex Female 5:08 AM FOOD CASHIER Gender Identity Female 03/19/2022 8:51 PM CDT Sexual Orientation Not on file documented as of this encounter Miscellaneous Notes * Telephone Encounter - Jolly Leonard RN - 01/28/2025 11:18 AM CDT Called Pt to follow up on Mychart. Symptoms are worsening. Pt reports she is having chest pain and is going into the ED to be checked. She will let us know what follow up is needed. Jolly Leonard RN [place] Triage documented in this encounter Plan of Treatment Upcoming Encounters Date Type Department Care Team (Late st Contact Info) Description 02/04/2025 1:00 PM CDT Appointment [facility] Imaging [address] [facility] [address] [place] [address] Belinda Brunson, MINING AND QUARRYING MACHINERY REPAIRER [address] [place] [address] 02/06/2025 8:15 AM CDT Lab [facility] [address] [place] [phone] 10/26/2025 9:30 AM FOOD CASHIER Office Visit [address] [phone] BrunsonBelinda CNP [facility] [place] [address] documented as of this encounter Visit Diagnoses Not on filedocumented in this encounter Additional Health Concerns Assessment Noted Time PHQ-9 Depression Total Score: 0 03/27/20 19 9:42 AM CDT documented as of this encounter Care Teams Road Conductor Relationship Specialty Start Date End Date Belinda Brunson CNP [address] [place] [address] PCP - General Nurse Practitioner - Family 10/16/24 Junior Flores MD [address] [facility], [address] [address] Assigned OBGYN Provider 10/27/23 Belinda Brunson CNP [address] [place] [address] Assigned PCP 11/03/24 documented as of this encounter
--- OUTSIDE RECORDS SUMMARY | 2025-01-28 13:19 | XMS_ITS | Encounter Summary ---
Author Organization [facility] Address [address] [place] [address] Care Team Providers Care Education Professional Name Role Phone Junior Flores MD Unavailable + [phone] Belinda Brunson CNP Primary Care Provider [phone] Belinda Brunson CNP Unavailable [phone] Encounter Details Date Type Department Care Team (Latest Contact Info) Description 01/19/2025 Travel Social History Tobacco Use Types Packs/Day Years [...] than three times a week 10/12/2024 Attends [employer] Not on file 10/12 Active Member [...] Answer Date Recorded PHQ-2 Score 0 01/19/2025 [facility] [place] of Occupat ional [facility] - Occupational Stress Questionnaire Answer Date Recorded [...] PM CDT Legal Sex Female 5:08 AM BATCH MIXING TRUCK DRIVER Gender Identity Female 03/19/2022 8:51 PM CDT Sexual Orientation Not on file documented as of this encounter Plan of Treatment Upcoming Encounters Date Type Department Care Team (Late st Contact Info) Description 02/04/2025 1:00 PM CDT Appointment [facility] [address] [place] [phone] Belinda Brunson CNP [address] [place] [address] [phone] 02/06/2025 8:15 AM CDT Lab [facility] [address] [place] [address] [phone] 10/26/2025 9:30 AM BATCH MIXING TRUCK DRIVER Office Visit [address] [phone] Belinda Brunson CNP [address] [place] [address] documented as of this encounter Visit Diagnoses Not on filedocumented in this encounter Additional Health Concerns Assessment Noted Time PHQ-9 Depression Total Score: 0 03/27/20 19 9:42 AM CDT documented as of this encounter Care Teams Education Professional Relationship Specialty Start Date End Date Belinda Brunson CNP [address] [place] [address] 786092 PCP - General Nurse Practitioner - Family 10/16/24 Junior Flores MD [address], [facility] [address] [place] [address] Assigned OBGYN Provider 10/27/23 Belinda Brunson, CASEWORKER PROTECTIVE SERVICES [address] [place] [address] Assigned PCP 11/03/24 documented as of this encounter
--- OUTSIDE RECORDS SUMMARY | 2025-01-28 13:19 | XMS_ITS | Encounter Summary ---
Author Organization [place] Address [address] [place] [address] Care Team Providers Care Construction Engineering Manager Name Role Phone Loretta Grove MD Primary Care Provider Loretta Grove MD Unavailable [phone] Shirin Rendon MD Unavailable Loretta Grove MD Unavailable [phone] Junior Flores MD Unavailable Belinda Brunson CNP Primary Care Provider [phone] Belinda Brunson CNP Unavailable [phone] Encounter Details Date Type Department Care Team (Late st Contact Info) Description 03/03/2022 MyC Medical Advice [facility] [address] [place] [phone] Amie Hilton, CHENILLE MACHINE OPERATOR Social History Tobacco Use Types Packs/Day Years Used Date Smoking Tobacco: Never Smokeless Tobacco: Never Alcohol Use Standard Drinks/Week Comments Yes 0 (1 standard drink = 0.6 oz pur e alcohol) wine sometimes PHQ-2 Answer Date Recorded PHQ-2 Score 0 04/15/2021 Comments No Sex and Gender Information Value Date Recorded Sex Assigned at Female 03/19/2022 8:51 PM CDT Legal Sex Female 5:08 AM SPOT WORKER Gender Identity Female 03/19/2022 8:51 PM CDT Sexual Orientation Not on file documented as of this encounter Plan of Treatment Upcoming Encounters Date Type Department Care Team (Late st Contact Info) Description 02/04/2025 1:00 PM CDT Appointment [facility] [address] [place] [address] [place] [address] Belinda Brunson, LALO [address] [place] [address] 179292 02/06/2025 8:15 AM CDT Lab [facility] [address] [place] [address] [phone] 10/26/2025 9:30 AM SPOT WORKER Office Visit [address] [phone] Belinda Brunson, LALO [address] [place] [address] documented as of this encounter Visit Diagnoses Not on filedocumented in this encounter Additional Health Concerns Infection Onset Date Last Indicated Resolved Time Rule Out C-difficile 04/08/2023 04/08/2023 023 3:47 PM CDT Assessment Noted Time PHQ-9 Depression Total Score: 0 03/27/20 19 9:42 AM CDT documented as of this encounter Care Teams Construction Engineering Manager Relationship Specialty [place] [address] [place] [address] PCP - General Family Practice 11/16/15 10/15/24 Belinda Brunson CNP [address] [place] [address] PCP - General Nurse Practitioner - Family 10/16/24 [place] [address] [place] [address] Assigned PCP 04/17/21 09/08/22 [place] [address] [place] [address] Assigned PCP 09/09/22 10/12/23 [place] [address] [place] [address] Assigned PCP 10/13/23 11/02/24 Junior Flores MD [address] [facility], [address] [address] Assigned OBGYN Provider 10/27/23 Belinda Brunson, WEIR FISHERMAN [address] [place], [place] 6[address] Assigned PCP 11/03/24 documented as of this encounter
--- OUTSIDE RECORDS SUMMARY | 2025-01-28 13:19 | XMS_ITS | Encounter Summary ---
Author Organization [facility] Address [address] [place] [address] Care Team Providers Care Pouncing Lathe Operator Name Role Phone Loretta Grove MD Primary Care Provider [phone] Loretta Grove MD Unavailable [phone] Terrance GudinoM Unavailable [phone] Yvonne Bailey MD Unavailable [phone] Loretta Grove MD Unavailable [phone] Beverley Leonard OD Unavailable Shirin Rendon MD Unavailable Loretta Grove MD Unavailable [phone] Junior Flores MD Unavailable Belinda Brunson CNP Primary Care Provider [phone] Belinda Brunson CNP Unavailable [phone] Encounter Details Date Type Department Care Team (Late st Contact Info) Description 07/13/2020 [facility] [address] [place] [phone] Ilda Solorzano Social History Tobacco Use Types Packs/Day Years Used Date Smoking Tobacco: Never Smokeless Tobacco: Never Alcohol Use Standard Drinks/Week Comments Yes 0 (1 standard drink = 0.6 oz pur e alcohol) wine sometimes PHQ-2 Answer Date Recorded PHQ-2 Score 0 11/20/2018 Comments No Sex and Gender Information Value Date Recorded Sex Assigned at Female 03/19/2022 8:51 PM CDT Legal Sex Female 5:08 AM CERTIFIED PARALEGAL Gender Identity Female 03/19/2022 8:51 PM CDT Sexual Orientation Not on file COVID-19 Exposure Response Date Recorded In the last month, have you been in contact with someone who was confirmed or suspected to have Coronavirus / COVID-19? No / Unsure 07/16/2020 8:30 AM CDT documented as of this encounter Plan of Treatment Upcoming Encounters Date Type Department Care Team (Late st Contact Info) Description 02/04/2025 1:00 PM CDT Appointment [facility] [address] [place] [address] [place] [address] Belinda Brunson, LEAD PERFORMANCE SUPPORT ANALYST [address] [place] [address] 02/06/2025 8:[address] [facility] [address] [place] [phone] 10/26/2025 9:30 AM CERTIFIED PARALEGAL Office Visit [address] [phone] Belinda Brunson, LEAD PERFORMANCE SUPPORT ANALYST [address] [place] [address] documented as of this encounter Visit Diagnoses Not on filedocumented in this encounter Additional Health Concerns Infection Onset Date Last Indicated Resolved Time Rule Out C-difficile 04/08/2023 04/08/2023 023 3:47 PM CDT Assessment Noted Time PHQ-9 Depression Total Score: 0 03/27/20 19 9:42 AM CDT documented as of this encounter Care Teams Pouncing Lathe Operator Relationship Specialty [place] [address] [place] [address] PCP - General Family Practice 11/16/15 10/15/24 Belinda Brunson CNP [address] [place] [address] PCP - General Nurse Practitioner - Family 10/16/24 [place] [address] [place] [address] Assigned PCP 11/21/15 04/06/21 Terrance Gudino DPM [address] [facility] [address] [place] [address] Assigned Musculoskeletal Provider 09/03/20 10/05/20 Yvonne Bailey MD [address] [facility] [place] [address] Assigned PCP 04/07/21 04/16/21 [place] [address] [place] [address] Assigned PCP 04/17/21 09/08/22 [address] [address] [facility] [address] Assigned Surgical Provider 10/02/21 12/31/21 [place] [address] [place] [address] Assigned PCP 09/09/22 10/12/23 [place] [address] [place] [address] Assigned PCP 10/13/23 11/02/24 Junior Flores MD [address], [facility] 100 [place] [address] Assigned OBGYN Provider 10/27/23 Belinda Brunson, LALO [address] [place], [place] [address] Assigned PCP 11/03/24 documented as of this encounter
--- OUTSIDE RECORDS SUMMARY | 2025-01-28 13:19 | XMS_ITS | Encounter Summary ---
Author Organization [place] Address [address] [place] [address] Care Team Providers Care Glazier Structural Glass Name Role Phone Loretta Grove MD Primary Care Provider [phone] Loretta Grove MD Unavailable [phone] Terrance GudinoM Unavailable [phone] Yvonne Bailey MD Unavailable [phone] Loretta Grove MD Unavailable [phone] Beverley Leonard OD Unavailable Shirin Rendon MD Unavailable Loretta Grove MD Unavailable [phone] Junior Flores MD Unavailable Belinda Brunson CNP Primary Care Provider [phone] Belinda Brunson CNP Unavailable [phone] Reason for Visit * Reason Onset Date Comments MyChart Communication 07/21/2020 TSH result s Encounter Details Date Type Department Care Team (Late st Contact Info) Description 07/21/2020 MyC Medical [facility] [address] [place] [phone] [place] [address] [place] [address] MyChart Communication (TSH results) Social History Tobacco Use Types Packs/Day Years Used Date Smoking Tobacco: Never Smokeless Tobacco: Never Alcohol Use Standard Drinks/Week Comments Yes 0 (1 standard drink = 0.6 oz pur e alcohol) wine sometimes PHQ-2 Answer Date Recorded PHQ-2 Score 0 11/20/2018 Comments No Sex and Gender Information Value Date Recorded Sex Assigned at Female 03/19/2022 8:51 PM CDT Legal Sex Female 5:08 AM SALES PROCESS MANAGER Gender Identity Female 03/19/2022 8:51 PM CDT Sexual Orientation Not on file COVID-19 Exposure Response Date Recorded In the last month, have you been in contact with someone who was confirmed or suspected to have Coronavirus / COVID-19? No / Unsure 07/16/2020 8:30 AM CDT documented as of this encounter Miscellaneous Notes * Telephone Encounter - Loretta Grove MD - 07/22/2020 8:17 AM CDT Yes, continue same dose. Recheck in 6 months. JH * Telephone Encounter - Maria Alejandra Sung RN - 07/21/2020 11:06 AM CDT Results have not been reviewed. Please advise Maria Alejandra Sung RN, BSN * Telephone Encounter - Ilda Solorzano - 07/21/2020 8:57 AM CDT documented in this encounter Plan of Treatment Upcoming Encounters Date Type Department Care Team (Late st Contact Info) Description 02/04/2025 1:00 PM CDT Appointment [facility] [address] [facility] [address] [place] [address] Belinda Brunson, SCHOOL COUNSELLOR [address] [place] [address] 02/06/2025 8:15 AM CDT Lab [facility] [address] [place] [phone] 10/26/2025 9:30 AM SALES PROCESS MANAGER Office Visit [address] [phone] Belinda Brunson, LALO [address] [place] [address] [phone] documented as of this encounter Visit Diagnoses Not on filedocumented in this encounter Additional Health Concerns Infection Onset Date Last Indicated Resolved Time Rule Out C-difficile 04/08/2023 04/08/2023 023 3:47 PM CDT Assessment Noted Time PHQ-9 Depression Total Score: 0 03/27/20 19 9:42 AM CDT documented as of this encounter Care Teams Glazier Structural Glass Relationship Specialty [place] [address] [place] [address] PCP - General Family Practice 11/16/15 10/15/24 Belinda Brunson CNP [address] [place] [address] PCP - General Nurse Practitioner - Family 10/16/24 [place] [address] [place] [address] Assigned PCP 11/21/15 04/06/21 Terrance Gudino DPM [address] [place] [address] [address] [place] [address] Assigned Musculoskeletal Provider 09/03/20 10/05/20 Yvonne Bailey MD [address] [facility] [place] [address] Assigned PCP 04/07/21 04/16/21 [place] [address] [place] [address] Assigned PCP 04/17/21 09/08/22 Beverley Leonard OD [address] [facility] [place] [address] Assigned Surgical Provider 10/02/21 12/31/21 [place] [address] [place] [address] Assigned PCP 09/09/22 10/12/23 [place] [address] [place] [address] Assigned PCP 10/13/23 11/02/24 Junior Flores MD [address], [facility] [address] [place] [address] Assigned OBGYN Provider 10/27/23 Belinda Brunson, LALO [address] [place] [address] Assigned PCP 11/03/24 documented as of this encounter
--- OUTSIDE RECORDS SUMMARY | 2025-01-28 13:19 | XMS_ITS | Encounter Summary ---
Author Organization [facility] Address [address] [place] [address] Care Team Providers Care Instructor Bridge Name Role Phone Loretta Grove MD Primary Care Provider [phone] Loretta Grove MD Unavailable [phone] Terrance GudinoM Unavailable [phone] Yvonne Bailey MD Unavailable [phone] Loretta Grove MD Unavailable [phone] Beverley Leonard OD Unavailable Shirin Rendon MD Unavailable Loretta Grove MD Unavailable [phone] Junior Flores MD Unavailable Belinda Brunson CNP Primary Care Provider [phone] Belinda Brunson CNP Unavailable [phone] Reason for Visit * Reason Onset Date Comments MyChart Communication 04/23/2019 Encounter Details Date Type Department Care Team (Late st Contact Info) Description 04/23/2019 [facility] Medical [facility] [address] [place] [phone] [place] [address] [place] [address] MyChart Communication Social History Tobacco Use Types [...] PM CDT Legal Sex Female 5:08 AM TRAFFIC RATE CLERK Gender Identity Female 03/19/2022 8:51 PM CDT Sexual Orientation Not on file documented as of this encounter Plan of Treatment Upcoming Encounters Date Type Department Care Team (Late st Contact Info) Description 02/04/2025 1:00 PM CDT Appointment [facility] [address] [facility] [address] [place] [phone] Belinda Brunson, GAS PUMP ATTENDANT [address] [place] [address] 02/06/2025 8:15 AM CDT Lab [facility] [address] [place] [phone] 10/26/2025 9:30 AM TRAFFIC RATE CLERK Office Visit [address] [phone] Belinda Brunson, GAS PUMP ATTENDANT [address] [place] [address] documented as of this encounter Visit Diagnoses Not on filedocumented in this encounter Additional Health Concerns Infection Onset Date Last Indicated Resolved Time Rule Out C-difficile 04/08/2023 04/08/2023 023 3:47 PM CDT Assessment Noted Time PHQ-9 Depression Total Score: 0 03/27/20 19 9:42 AM CDT documented as of this encounter Care Teams Instructor Bridge Relationship Specialty [place] [address] [place] [address] PCP - General Family Practice 11/16/15 10/15/24 Belinda Brunson, GAS PUMP ATTENDANT [address] [place] [address] PCP - General Nurse Practitioner - Family 10/16/24 [place] [address] [place] [address] Assigned PCP 11/21/15 04/06/21 Terrance Gudino DPM [address] [facility] [address] [place] [address] Assigned Musculoskeletal Provider 09/03/20 10/05/20 Yvonne Bailey MD [address] [place] [address] [place] [address] Assigned PCP 04/07/21 04/16/21 [place] [address] [place] [address] Assigned PCP 04/17/21 09/08/22 Beverley Leonard OD [address] [place] [address] [place] [address] Assigned Surgical Provider 10/02/21 12/31/21 [place] [address] [place] [address] Assigned PCP 09/09/22 10/12/23 [place] [address] [place] [address] Assigned PCP 10/13/23 11/02/24 Junior Flores MD [address] [facility], [address] [address] Assigned OBGYN Provider 10/27/23 Belinda Brunson, GAS PUMP ATTENDANT [address] [place] [address] Assigned PCP 11/03/24 documented as of this encounter
[2025-01-28 13:20] VITALS: RESP 11
[2025-01-28 13:30] VITALS: RESP 9
[2025-01-28 13:30] LABS: Albumin* 4.9 g/dL (3.3-5.0); Chloride* 102 mmol/L (96-114)
[2025-01-28 13:31] LABS: Potassium* 4.2 mmol/L (3.6-5.1); Sodium* 137 mmol/L (135-149)
[2025-01-28 13:33] LABS: Blood Urea Nitrogen* 9 mg/dL (7-30); Creatinine* 0.9 mg/dL (0.5-1.5); Est. Creatinine Clearance* 53.09; Estimated Glomerular Filt Rate 70 ml/min
[2025-01-28 13:34] LABS: Alanine Aminotransferase* 20 U/L (4-35); Alkaline Phosphatase* 59 U/L (40-150); Anion Gap 9 mEq/L (7-15); Aspartate Amino Transferase* 41 U/L (12-35); Bilirubin Direct* 0.5 mg/dL (0.0-0.5); Bilirubin Total* 0.7 mg/dL (0.1-1.5); Calcium* 9.4 mg/dL (8.4-10.6); Carbon Dioxide* 26 mmol/L (20-32); Glucose* 95 mg/dL (60-115)
[2025-01-28 13:40] LABS: C Reactive Protein* < 0.5 mg/dL (0.5-1.0)
[2025-01-28 13:45] VITALS: RESP 10
== END 2025-01-28 14:14 | disposition home or self-care (01) ==
PROVIDERS: Emergency Provider Family Medicine
DX: R10.13 Epigastric pain (principal)
CPT/HCPCS: 36415; 76705; 80048; 80076; 83605; 84484; 85025; 86140; 93005; 94761; 96374; 99284; 99285; J2470; J7030

== ENCOUNTER 2025-02-21 11:21 | Emergency (ER) | payer MEDICARE, SELFPAY ==
--- OUTSIDE RECORDS SUMMARY | 2025-02-21 11:23 | XMS_ITS | Encounter Summary ---
Author Organization [place] Address [address] [place] [address] Care Team Providers Care Journeyman Power Plant Operator Name Role Phone Loretta Grove MD Primary Care Provider [phone] Loretta Grove MD Unavailable [phone] Loretta Grove MD Unavailable [phone] Terrance Gudino DPM Unavailable [phone] Yvonne Bailey MD Unavailable [phone] Loretta Grove MD Unavailable [phone] Beverley Leonard OD Unavailable Shirin Rendon MD Unavailable Loretta Grove MD Unavailable [phone] Junior Flores MD Unavailable Belinda Brunson CNP Primary Care Provider [phone] Belinda Brunson CNP Unavailable [phone] Encounter Details Date Type Department Care Team (Latest Contact Info) Description 10/16/2016 [facility] [address] [place] [phone] Lou Christianson RN Acquired hypothyroidism (Primary Dx) Social History Tobacco Use Types Packs/Day Years Used Date Smoking Tobacco: Never Smokeless Tobacco: Never Alcohol Use Standard Drinks/Week Comments No 0 (1 standard drink = 0.6 oz pur e alcohol) Comments No Sex and Gender Information Value Date Recorded Sex Assigned at Female 03/19/2022 8:51 PM CDT Legal Sex Female 5:08 AM SCREEN MAKING SUPERVISOR Gender Identity Female 03/19/2022 8:51 PM CDT Sexual Orientation Not on file documented as of this encounter Plan of Treatment Upcoming Encounters Date Type Department Care Team (Late st Contact Info) Description 10/26/2025 9:30 AM SCREEN MAKING SUPERVISOR Office Visit [address] [phone] Belinda Brunson, LALO [address] [place] [address] documented as of this encounter Visit Diagnoses Diagnosis Acquired hypothyroidism- Primary Unspecified hypothyroidism documented in this encounter Additional Health Concerns Infection Onset Date Last Indicated Resolved Time Rule Out C-difficile 04/08/2023 04/08/2023 023 3:47 PM CDT documented as of this encounter Care Teams Journeyman Power Plant Operator Relationship Specialty [place] [address] [place] [address] PCP - General Family Practice 11/16/15 10/15/24 [place] [address] [place] [address] PCP - Assigned PCP 11/21/15 01/14/19 Belinda Brunson CNP [address] [place] [address] PCP - General Nurse Practitioner - Family 10/16/24 [place] [address] [place] [address] Assigned PCP 11/21/15 04/06/21 Terrance Gudino DPM [address] [facility] [address] [place] [address] Assigned Musculoskeletal Provider 09/03/20 10/05/20 Yvonne Bailey MD [address] [facility] [place] [address] Assigned PCP 04/07/21 04/16/21 [place] [address] [place] [address] Assigned PCP 04/17/21 09/08/22 [place]ley [place] OD [address] [place] [address] Assigned Surgical Provider 10/02/21 12/31/21 [place] [address] [place] [address] Assigned PCP 09/09/22 10/12/23 [place] [address] [place] [address] Assigned PCP 10/13/23 11/02/24 Junior Flores MD [address] [facility] [address] [place] [address] Assigned OBGYN Provider 10/27/23 Belinda Brunson, PATTERN CARRIER [address] [place] [address] Assigned PCP 11/03/24 documented as of this encounter
--- OUTSIDE RECORDS SUMMARY | 2025-02-21 11:24 | XMS_ITS | Clinical Summary ---
Author Organization [facility] Address [address] [place] [address] Care Team Providers Care Narrow Gauge Engineer Name Role Phone Unavailable Primary Care Provider [...] History Relation Name Comments Heart Disease Father [place] Cancer-breast Mother Hypertension Mother Stroke Mother Relation Name Status Comments Father Mother Social History Tobacco Use Types Packs/Day Years Used Date Smoking Tobacco: Never Smokeless Tobacco: Never Alcohol Use Standard Drinks/Week Comments No 0 (1 standard drink = 0.6 oz pur e alcohol) Comments No Sex and Gender Information Value Date Recorded Sex Assigned at Not on file Legal Sex Female 5:23 AM ZMT OPERATOR Gender Identity Not on file Sexual Orientation Not on file Obstetrics History Last Filed Vital Signs Vital Sign Reading Time Taken Comments Blood Pressure 154/100 11/07/2015 3:44 PM ZMT OPERATOR Pulse 66 11/07/2015 3:44 PM ZMT OPERATOR Temperature 36.9 C (98.5 F) 11/07/2015 3:44 PM ZMT OPERATOR Respiratory Rate 14 11/07/2015 3:44 PM ZMT OPERATOR Oxygen Saturation 98% 11/07/2015 3:44 PM ZMT OPERATOR Inhaled Oxygen Concentration - - Weight 73.9 kg (163 lb) 11/07/2015 3:44 PM ZMT OPERATOR Height 169.5 cm (5' 6.75) 11/07/2015 3:44 PM CS T Body Mass Index 25.72 11/07/2015 3:44 PM ZMT OPERATOR Plan of Treatment Health Maintenance Due Date [...] season) 2024 11/21/2021, 01/26/2021, 01/05/2021 Influenza Vaccine (Season Ended) 2025 09/26/1999, 09/22/1998, 09/29/1997, Additional history exists RSV vaccine [...] CDT) CHOLESTEROL,TOTAL 207(H) 110 - 199 mg/dL [facility] TRIGLYCERIDES 124 <150 mg/dL [facility] HDL CHOLESTEROL 68 >40 mg/dL [facility] CHOL/HDL RATIO 3.04 <4.51 [facility] LDL CHOLESTEROL 114 <131 mg/dL [facility] PATIENT STATUS Non-Fasti ng [facility] 03/15/2006 9:36 AM CDT 03/15/2006 9:28 AM CDT us Nigel Patel MD CHEMISTRY Final Result [facility] [address] [place] [address] from Last 3 Months or Most Recently Relevant to Health Maintenance Insurance #[id number] [place] [address] [facility]
--- OUTSIDE RECORDS SUMMARY | 2025-02-21 11:24 | XMS_ITS | Encounter Summary ---
Author Organization [place] Address [address] [place] [address] Care Team Providers Care Urban Forester Name Role Phone Loretta Grove MD Primary Care Provider [phone] Loretta Grove MD Unavailable [phone] Beverley Leonard OD Unavailable Shirin Rendon MD Unavailable Lorteta Grove MD Unavailable [phone] Junior Flores MD Unavailable Belinda Brunson CNP Primary Care Provider [phone] Belinda Brunson CNP Unavailable [phone] Encounter Details Date Type Department Care Team [...] PM CDT Legal Sex Female 5:08 AM DIE FINISHER Gender Identity Female 03/19/2022 8:51 PM CDT Sexual Orientation Not on file COVID-19 Exposure Response Date Recorded In the last month, have you been in contact with someone who was confirmed or suspected to have Coronavirus / COVID-19? No / Unsure 10/22/2021 6:30 AM DIE FINISHER documented as of this encounter Plan of Treatment Upcoming Encounters Date Type Department Care Team (Late st Contact Info) Description 10/26/2025 9:30 AM DIE FINISHER Office Visit [address] [phone] Belinda Brunson, LALO [address] [place] [address] 664882 documented as of this encounter Visit Diagnoses Not on filedocumented in this encounter Additional Health Concerns Infection Onset Date Last Indicated Resolved Time Rule Out C-difficile 04/08/2023 04/08/2023 023 3:47 PM CDT Assessment Noted Time PHQ-9 Depression Total Score: 0 03/27/20 19 9:42 AM CDT documented as of this encounter Care Teams Urban Forester Relationship Specialty [place] [address] [place] [address] PCP - General Family Practice 11/16/15 10/15/24 Belinda Brunson, LALO [address] [place] [address] PCP - General Nurse Practitioner - Family 10/16/24 [place] [address] [place] [address] Assigned PCP 04/17/21 09/08/22 Beverley Leonard OD [address] [place] [address] LAURY CARDOSO [address] Assigned Surgical Provider 10/02/21 12/31/21 [place] [address] [place] [address] Assigned PCP 09/09/22 10/12/23 [place] [address] [place] [address] Assigned PCP 10/13/23 11/02/24 Junior Flores MD [address] [facility], [address] [address] Assigned OBGYN Provider 10/27/23 Belinda Brunson, EXHAUST AND MUFFLER REPAIRER [address] [place] [address] Assigned PCP 11/03/24 documented as of this encounter
--- OUTSIDE RECORDS SUMMARY | 2025-02-21 11:24 | XMS_ITS | Clinical Summary ---
Author Organization [place] Address [address] [place] [address] Care Team Providers Care Resident Service Coordinator Name Role Phone Junior Flores MD Unavailable Belinda Brunson CNP Primary Care Provider Belinda Brunson CNP Unavailable [phone] Allergies Active Allergy Reactions Criticality Noted Date [...] for muscle spasms. 20 tablet 5 Active omeprazole (PRILOSEC) [address] capsuleIndications :Epigastric pain Take 1 capsule (20 mg) by mouth daily for 21 days. 21 capsule 5 02/28/20 25 Active nystatin (MYCOSTATIN) 960369 UNIT/ML suspensionIndicati ons:Thrush Take 5 mLs (500,000 Units) by mouth 4 times daily for 10 days. 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 Plan per protocol, colp within three months. 12/26/12 [place]: SANTOS 1. ECC: Cannot exclude high grade. [...] Encounters Date Type Department Care Team Description 02/13/2025 8:15 AM CDT Lab [facility] [address] [place] [address] [place] [address] Mixed hyperlipidemia 02/13/2025 Travel 02/09/2025 Travel 02/06/2025 3:00 PM CDT Office [place] [address] [place] [address] Belinda Brunson CNP Epigastric pain (Primary Dx); Thrush 02/06/2025 Travel 01/29/2025 [facility] Medical Advice [address] [place] [address] Belinda Brunson CNP Epigastric pain (Primary Dx) 01/28/2025 [facility] Medical Advice [address] [place] [address] Belinda Brunson CNP 01/19/2025 1:00 PM CDT Office Visit [address] [place] [address] Belinda Brunson CNP Epigastric pain (Primary Dx); Mixed hyperlipidemia; Chest wall pain 01/19/2025 Travel from Last 3 Months Immunizations Name Administration Dates Next Due COVID-19 MONOVALENT 12+ (Pfizer) 11/21/2021,01/10,01/05/2021 Influenza (High Dose) Trival ent,PF (Fluzone) 08/15/2024 Influenza (IIV3) PF 08/04/2010, 9,09/22/1998,1996,09/25/1996,10/01/1995,1957 Influenza Vaccine 18-64 (Flublok) 08/29/2022,,07/16/2020 Influenza Vaccine [...] Never Smokeless Tobacco: Never Tobacco Cessation:Counseling Given: Not Answered Alcohol Use Standard Drinks/Week Comments Yes 0 (1 standard drink = 0.6 oz pur e alcohol) Rare Social Connection and Isolat ion Panel [NHANES] Answer Date Recorded Frequency of Communication w ith Friends and Family Not on file 10/12/2024 How often do you get togethe r with friends or relatives? More than three times a week 10/12/2024 Attends Muslim Services Not on file 10/12 Active Member [...] Answer Date Recorded PHQ-2 Score 0 01/19/2025 [facility] - Occupational Stress Questionnaire Answer Date Recorded [...] in an abandoned building, in an overnight fdc, or couch-surfing.) Yes 10/12/2024 Are you worried [...] PM CDT Legal Sex Female 5:08 AM DISHWASHER Gender Identity Female 03/19/2022 8:51 PM CDT Sexual Orientation Not on file Last Filed Vital Signs Vital Sign Reading Time Taken Comments Blood Pressure 124/80 02/06/2025 2:41 PM CDT Pulse 67 02/06/2025 2:41 PM CDT Temperature 37.1 C (98.8 F) 02/06/2025 2:41 PM CDT Respiratory Rate 16 02/06/2025 2:41 PM CDT Oxygen Saturation 99% 02/06/2025 2:41 PM CDT Inhaled Oxygen Concentration - - Weight 71.4 kg (157 lb 8 oz) 02/06/2025 2:41 PM CDT Height 167.6 cm (5' 6) 02/06/2025 2:41 PM CDT Body Mass Index 25.42 02/06/2025 2:41 PM CDT Plan of Treatment Upcoming Encounters Date Type Department Care Team (Late st Contact Info) Description 10/26/2025 9:30 AM DISHWASHER Office Visit [address] [address] Belinda Brunson, [address] [address] Health Maintenance Due Date Last Done Comments [...] FALL RISK ASSESSMENT 10/17/2025 10/17/2024, 10/02/2023, 09/25/2023 MEDICARE ANNUAL WELLNESS VISIT 10/17/2025 10/17/2024, 10/02/2023, 08/29/2022, Additional history exists TSH W/FREE T4 REFLEX 10/17/2025 10/17/2024, 12/18/2023, 09/27/2023, Additional history exists BMP 01/19/2026 01/19/2025, 120 04/2024, 12/18/2023, Additional history exists LIPID 02/13/2026 02/13/2025, 120 04/2024, 03/26/2023, Additional history exists MAMMO SCREENING 10/03/2026 10/03/2024, 09/12, 08/16/2022, Additional history exists DIABETES SCREENING 01/20/2028 01/19/2025, 1 12/18/2023, 12/18/2023, Additional history exists DTAP/TDAP/TD IMMUNIZATION (3 - Td or Tdap) 04/03/2028 04/03/2018, 11/15/2007, 06/10/1996 ADVANCE CARE PLANNING 10/17/2029 10/17/2024 , 08/29/2022, 02/20/2014, Additional history exists COLONOSCOPY 08/16/2030 08/16/2020, 03/2020, 04/03/2014, Additional history exists COLORECTAL CANCER SCREENING [...] Procedure Name Priority Date/Time Associated Diagnosis Comments LIPID REFLEX TO DIRECT LDL PANEL Routine 02/13/2025 8:09 AM CDT Mixed hyperlipidemia HELICOBACTER PYLORI ANTIGEN STOOL Routine 02/09/2025 8:15 AM CDT Epigastric pain COMPREHENSIVE METABOLIC PANEL Routine 01/19/2025 1:37 PM CDT Epigastric pain LIPASE Routine 01/19/2025 1:37 PM CDT Epigastric pain TSH WITH FREE T4 REFLEX Routine 10/17/2024 11:37 AM DISHWASHER Hypothyroidism, unspecified type MA SCREENING BILATERAL W/ RON Routine 10/03/2024 9:37 AM DISHWASHER Visit for screening mammogram DX BONE DENSITY Routine 06/14/2023 4:40 PM CDT Screening for condition Postmenopausal status HPV HIGH RISK TYPES DNA CERVICAL Routine 08/29/2022 8:52 AM CDT Cervical cancer screening GYNECOLOGIC CYTOLOGY Routine 08/29/2022 8:52 AM CDT Cervical cancer screening COLONOSCOPY - HIM SCAN 08/16/2020 12:00 AM CDT HEPATITIS C ANTIBODY Routine 11/24/2010 10:55 AM DISHWASHER from Last 3 Months or Most Recently Relevant to Health Maintenance Results * (ABNORMAL) Lipid panel reflex to direct LDL Fasting (02/13/2025 8:09 AM CDT) Cholesterol 220(H) <200 mg/dL 02/13/2025 5:54 PM CDT [facility] Triglycerides 191(H) <150 mg/dL 02/13/2025 5:54 PM CDT [facility] Direct Measure HDL 59 >=50 mg/dL 02/13/2025 5:54 PM CDT [facility] LDL Cholesterol Calculated 123(H) <100 mg/dL 02/13/2025 5:54 PM CDT [facility] Non HDL Cholesterol 161(H) <130 mg/dL 02/13/2025 5:54 PM CDT [facility] Patient Fasting > 8hrs? Yes 02/13/2025 5:54 PM CDT [facility] Blood BLOOD SPECIMEN / Unknown Venipuncture / Unknown 02/13/2025 8:09 AM CDT 02/13/2025 8:09 AM CDT Narrative [facility] - 02/13/2025 5:54 PM CDT Cholesterol Desirable: < 200 mg/dL Borderline High: [...] High: >= 220 mg/dL us Belinda Brunson GLOVE SEWER LAB - BLOOD ORDERABLES Fi nal Result [facility] [address] [facility], [address] [address] * Helicobacter pylori Antigen Stool (02/09/2025 8:15 AM CDT) Helicobacter pylori Antigen Stool Negative Negative 02/10/2025 10:35 AM CDT [facility] Comment:Negative for Helicob acter pylori antigen by enzyme immunoassay. A negative result indicates the absence of H. pylori antigen or that the level of antigen is below the level of detection. Stool RECTAL CONTENTS / Unknown Non-blood Collection / Unknown 02/09/2025 8:15 AM CDT 02/09/2025 9:44 AM CDT Belinda Brunson CNP LAB - STOOLS ORDERABLES F inal Result SPECIALTY CORE/PROT/ENDO Specialty Core/Prot/Endo [address] [facility], Room [address] [facility] Specialty Lab [address] [facility], [address] [address], [place] * Lipase (01/19/2025 1:37 PM CDT) [facility] Lipase 45 13 - 60 U/L 01/20/2025 3:08 PM CDT [facility] Blood BLOOD SPECIMEN / Unknown Venipuncture / Unknown 01/19/2025 1:37 PM CDT 01/19/2025 1:37 PM CDT Belinda Brunson CNP LAB - BLOOD ORDERABLES Fi nal Result [facility] [address] [place], [place] [address] [place] [address] * (ABNORMAL) Comprehensive metabolic panel (BMP + Alb, Alk Phos, ALT, AST, Total. Bili, TP) (01/19/2025 1:37 PM CDT) [facility] Sodium 136 135 - 145 mmol/L 01/20/2025 3:08 PM CDT [facility] Potassium 5.0 3.4 - 5.3 mmol/L 01/20/2025 3:08 PM CDT [facility] Carbon Dioxide (CO2) 25 22 - 29 mmol/L 01/20/2025 3:08 PM CDT [facility] Anion Gap 10 7 - 15 mmol/L 01/20/2025 3:08 PM CDT [facility] Urea Nitrogen 7.9(L) 8.0 - 23.0 mg/dL 01/20/2025 3:08 PM CDT [facility] Creatinine 0.95 0.51 - 0.95 mg/dL 01/20/2025 3:08 PM CDT [facility] GFR Estimate 65 >60 mL/min/1.7 3m2 01/20/2025 3:08 PM CDT [facility] Comment:eGFR calculated 2020 CKD-EPI equation. Calcium 9.5 8.8 - 10.4 mg/dL 01/20/2025 3:08 PM CDT [facility] Chloride 101 98 - 107 mmol/L 01/20/2025 3:08 PM CDT [facility] Glucose 90 70 - 99 mg/dL 01/20/2025 3:08 PM CDT [facility] Alkaline Phosphatase 71 40 - 150 U/L 01/20/2025 3:08 PM CDT [facility] AST 25 0 - 45 U/L 01/20/2025 3:08 PM CDT [facility] ALT 16 0 - 50 U/L 01/20/2025 3:08 PM CDT [facility] Protein Total 7.2 6.4 - 8.3 g/dL 01/20/2025 3:08 PM CDT [facility] Albumin 4.4 3.5 - 5.2 g/dL 01/20/2025 3:08 PM CDT [facility] Bilirubin Total 0.2 <=1.2 mg/dL 01/20/2025 3:08 PM CDT [facility] Blood BLOOD SPECIMEN / Unknown Venipuncture / Unknown 01/19/2025 1:37 PM CDT 01/19/2025 1:37 PM CDT Belinda Brunson GLOVE SEWER LAB - BLOOD ORDERABLES Fi nal Result N [facility]AT[facility] [address] [place] [address], [facility] * TSH with free T4 reflex (10/17/2024 11:37 AM DISHWASHER) TSH 2.34 0.30 - 4.20 uIU/mL 10/17/2024 9:44 PM DISHWASHER [facility] Blood BLOOD SPECIMEN / Unknown Venipuncture / Unknown 10/17/2024 11:37 AM DISHWASHER 10/17/2024 11:37 AM DISHWASHER Belinda Brunson CNP LAB - BLOOD ORDERABLES Fi nal Result [facility] [address] [facility], [address] [place] [address], [facility] * MA Screening Bilateral w/ Ron (10/03/2024 9:37 AM DISHWASHER) Anatomical Region Laterality Modality Breast Bilateral Mammography Impressions 10/06/2024 9:36 AM DISHWASHER IMPRESSION: ACR BI-RADS Category 1: Negative BREAST CANCER SCREENING RECOMMENDATION: Routine yearly mammography beginning at age 40 or as discussed with your provider. The results and recommendations of this examination will be communicated to the patient. Denise Alvarez MD Narrative 10/06/2024 9:36 AM DISHWASHER BILATERAL FULL FIELD DIGITAL SCREENING MAMMOGRAM WITH [...] Narrative 06/16/2023 2:36 PM CDT BONE DENSITOMETRY [address] [address] 06/14/2023 PATIENT: Leatha Ceballos CHART: [id number] : 1955 AGE: [age] year old SEX: female REFERRING PROVIDER: Shirin Rendon MD PROCEDURE: Bone density scanning was performed using DXA technology of the lumbar spine and hip. Scanning was performed on a [employer] scanner. Reporting is completed in the form [...] to another DXA performed on the same [employer] machine on 01/29/2012. IMPRESSION Low Bone Density [...] Loni Miles M.D. Electronically signed us Shirin DECKERA ORDERABLES Final Result * Pap Screen with [...] component of this testing was completed at [facility] 08/31/2022 10:28 AM CDT [facility] Brushing CERVIX UTERI STRUCTURE / Unknown Non-blood Collection / Unknown 08/29/2022 8:52 AM CDT 08/29/2022 9:12 AM CDT us Shirin GONZALEZ - YARITZA REILLY Final Result [facility] [address], [address] [place] [address], [place] [phone] * HPV High Risk Types DNA Cervical (08/29/2022 8:52 AM CDT) Other HR HPV Negative Negative 09/04/2022 12:44 PM CDT [facility] HPV16 DNA Negative Negative 09/04/2022 12:44 PM CDT [facility] HPV18 DNA Negative Negative 09/04/2022 12:44 PM CDT [facility] FINAL DIAGNOSIS This patient's sample is negative for HPV DNA. This test was developed and its performance characteristics determined by the [facility], Molecular Diagnostics Laboratory. It has not been [...] followup is recommended. 09/04/2022 12:44 PM CDT [facility] Brushing CERVIX UTERI STRUCTURE / Unknown Non-blood Collection / Unknown 08/29/2022 8:52 AM CDT 09/01/2022 9:37 AM CDT Shirin Rendon MD LAB - BLOOD ORDERABLES Final Res ult [facility] Molecular Diagnostics [address] [facility] [address] [facility], Room [address] [place] [address], [facility] [phone] * COLONOSCOPY - HIM SCAN (08/16/2020 12:00 AM CDT) 08/16/2020 us Provider Outside PROCEDURES Final Result * Hepatitis C antibody (11/24/2010 10:55 AM DISHWASHER) Hepatitis C Antibody Negative NEG [facility] Blood specimen (specimen) 11/24/2010 10:55 AM DISHWASHER 11/24/2010 11:01 AM DISHWASHER Alexandro Neves MD LAB - BLOOD ORDERABLES Final Result [facility] [address] [place] [address] from Last 3 Months or Most Recently Relevant to Health Maintenance Insurance UCARE MEDICARE UCARE MEDICARE Care Teams Resident Service Coordinator Relationship Specialty Start Date End Date Belinda Brunson CNP [facility] [place], [place] [address] PCP - General Nurse Practitioner - Family 10/16/24 Junior Flores MD [facility] [address] [facility], [address] [address] Assigned OBGYN Provider 10/27/23 Belinda Brunson CNP [address] [place] [address] Assigned PCP 11/03/24
--- OUTSIDE RECORDS SUMMARY | 2025-02-21 11:24 | XMS_ITS | Encounter Summary ---
Author Organization [place] Address [address] [place] [address] Care Team Providers Care Car Rental Deliverer Name Role Phone Loretta Grove MD Primary Care Provider [phone] Shirin Rendon MD Unavailable Loretta Grove MD Unavailable [phone] Junior Flores MD Unavailable Belinda Brunson CNP Primary Care Provider [phone] Belinda Brunson CNP Unavailable [phone] Encounter Details Date Type Department Care Team (Late st Contact Info) Description 10/01/2023 [facility] Medical Adv[facility] Women's [address] [place] [phone] Louise Pat Social History Tobacco Use Types [...] often do you attend chur ch or buddhist services? More than 4 times per year 10/02/2023 Do you belong to any clubs o r organizations such as holiness groups, unions, fraternal or athletic groups, or [...] Answer Date Recorded PHQ-2 Score 0 10/02/2023 [facility] Occupat ional Health - [...] an abandoned building, in an overnight senior care, or couch-surfing.) Yes 10/02/2023 Are you worried [...] PM CDT Legal Sex Female 5:08 AM AUTO MECHANIC Gender Identity Female 03/19/2022 8:51 PM CDT Sexual Orientation Not on file documented as of this encounter Plan of Treatment Upcoming Encounters Date Type Department Care Team (Late st Contact Info) Description 10/26/2025 9:30 AM AUTO MECHANIC Office Visit [address] [address] Belinda Brunson, [address] [address] documented as of this encounter Visit Diagnoses Not on filedocumented in this encounter Additional Health Concerns Assessment Noted Time PHQ-9 Depression Total Score: 0 03/27/20 9:42 AM CDT documented as of this encounter Care Teams Car Rental Deliverer Relationship Specialty [place] [address] [place] [address] PCP - General Family Practice 11/16/15 10/15/24 Belinda Brunson CNP [facility] [place] [address] PCP - General Nurse Practitioner - Family 10/16/24 [place] [address] [place] [address] Assigned PCP 09/09/22 10/12/23 [place] [address] [place] [address] Assigned PCP 10/13/23 11/02/24 Junior Flores MD [address], [address] [address] Assigned OBGYN Provider 10/27/23 Belinda Brunson, LALO [address] [place] [address] Assigned PCP 11/03/24 documented as of this encounter
--- OUTSIDE RECORDS SUMMARY | 2025-02-21 11:24 | XMS_ITS | Encounter Summary ---
Author Organization [place] Address [address] [place] [address] Care Team Providers Care Naprapath Name Role Phone Loretta Grove MD Primary Care Provider [phone] Loretta Grove MD Unavailable [phone] Beverley Leonard OD Unavailable Shirin Rendon MD Unavailable Loretta Grove MD Unavailable [phone] Junior Flores MD Unavailable Belinda Brunson CNP Primary Care Provider [phone] Belinda Brunson CNP Unavailable [phone] Encounter Details Date Type Department Care Team (Late st Contact Info) Description 07/14/2021 [facility] Medical Advice [facility] [address] [place] [address] Skyla Chua Social History Tobacco [...] PM CDT Legal Sex Female 5:08 AM AQUATIC LIFE LABORER Gender Identity Female 03/19/2022 8:51 PM CDT Sexual Orientation Not on file documented as of this encounter Plan of Treatment Upcoming Encounters Date Type Department Care Team (Late st Contact Info) Description 10/26/2025 9:30 AM AQUATIC LIFE LABORER Office Visit [address] [address] Belinda Brunson, LALO [address] [place] [address] documented as of this encounter Visit Diagnoses Not on filedocumented in this encounter Additional Health Concerns Infection Onset Date Last Indicated Resolved Time Rule Out C-difficile 04/08/2023 04/08/2023 023 3:47 PM CDT Assessment Noted Time PHQ-9 Depression Total Score: 0 03/27/20 19 9:42 AM CDT documented as of this encounter Care Teams Naprapath Relationship Specialty [place] [address] [place] [address] PCP - General Family Practice 11/16/15 10/15/24 Belinda Brunson CNP [address] [place] [address] PCP - General Nurse Practitioner - Family 10/16/24 [place] [address] [place] [address] Assigned PCP 04/17/21 09/08/22 Beverley Leonard OD [address] [place] [address] LAURY CARDOSO [address] Assigned Surgical Provider 10/02/21 12/31/21 [place] [address] [place] [address] Assigned PCP 09/09/22 10/12/23 [place] [address] [place] [address] Assigned PCP 10/13/23 11/02/24 Junior Flores MD [address] [address] Assigned OBGYN Provider 10/27/23 Belinda Brunson, LALO [address] [place] [address] Assigned PCP 11/03/24 documented as of this encounter
--- OUTSIDE RECORDS SUMMARY | 2025-02-21 11:24 | XMS_ITS | Encounter Summary ---
Author Organization [place] Address [address] [place] [address] Care Team Providers Care Food Service Steward Name Role Phone Loretta Grove MD Primary Care Provider [phone] Loretta Grove MD Unavailable [phone] Terrance GudinoM Unavailable [phone] Yvonne Bailey MD Unavailable [phone] Loretta Grove MD Unavailable [phone] Beverley Leonard OD Unavailable [phone] Shirin Rendon MD Unavailable Loretta Grove MD Unavailable [phone] Junior Flores MD Unavailable Belinda Brunson CNP Primary Care Provider [phone] Belinda Brunson CNP Unavailable [phone] Encounter Details Date Type Department Care Team (Late st Contact Info) Description 03/22/2020 My[facility] Medical Advice [facility] [address] [place] [address] Maria Alejandra Sung APRN ROUGHING MILL OPERATOR [address] [place] [address] Social History Tobacco Use Types Packs/Day Years Used Date Smoking Tobacco: Never Smokeless Tobacco: Never Alcohol Use Standard Drinks/Week Comments Yes 0 (1 standard drink = 0.6 oz pur e alcohol) wine sometimes PHQ-2 Answer Date Recorded PHQ-2 Score 0 11/20/2018 Comments No Sex and Gender Information Value Date Recorded Sex Assigned at Female 03/19/2022 8:51 PM CDT Legal Sex Female 5:08 AM CITY ASSESSOR Gender Identity Female 03/19/2022 8:51 PM CDT [...] st Contact Info) Description 10/26/2025 9:30 AM CITY ASSESSOR Office Visit [address] [phone] Belinda Brunson CNP [address] [place] [address] documented as of this encounter Visit Diagnoses Not on filedocumented in this encounter Additional Health Concerns Infection Onset Date Last Indicated Resolved Time Rule Out C-difficile 04/08/2023 04/08/2023 023 3:47 PM CDT Assessment Noted Time PHQ-9 Depression Total Score: 0 03/27/20 19 9:42 AM CDT documented as of this encounter Care Teams Food Service Steward Relationship Specialty [place] [address] [place] [address] PCP - General Family Practice 11/16/15 10/15/24 Belinda Brunson CNP [address] [place] [address] PCP - General Nurse Practitioner - Family 10/16/24 [place] [address] [place] [address] Assigned PCP 11/21/15 04/06/21 Terrance Gudino DPM [address] [facility] [address] [place] [address] Assigned Musculoskeletal Provider 09/03/20 10/05/20 [place] [address] [place] [address] [place] [address] Assigned PCP 04/07/21 04/16/21 [place] [address] [place] [address] Assigned PCP 04/17/21 09/08/22 Beverley Leonard OD [address] [place] [address] [place] [address] Assigned Surgical Provider 10/02/21 12/31/21 [place] [address] [place] [address] Assigned PCP 09/09/22 10/12/23 [place] [address] [place] [address] Assigned PCP 10/13/23 11/02/24 Junior Flores MD [address] [facility] [address] [place] [address] Assigned OBGYN Provider 10/27/23 Belinda Brunson, ROUGHING MILL OPERATOR [address] [place] [address] Assigned PCP 11/03/24 documented as of this encounter
--- OUTSIDE RECORDS SUMMARY | 2025-02-21 11:24 | XMS_ITS | Encounter Summary ---
Author Organization [place] Address [address] [place] [address] Care Team Providers Care Substation Electrician Supervisor Name Role Phone Loretta Grove MD Primary Care Provider [phone] Loretta Grove MD Unavailable [phone] Terrance GudinoM Unavailable [phone] Yvonne Bailey MD Unavailable [phone] Loretta Grove MD Unavailable [phone] Beverley Leonard OD Unavailable Shirin Rendon MD Unavailable Loretta Grove MD Unavailable [phone] Junior Flores MD Unavailable Belinda Brunson CNP Primary Care Provider [phone] Belinda Brunson CNP Unavailable [phone] Reason for Visit * Reason Onset Date Comments MyChart Communication 09/16/2020 Encounter Details Date Type Department Care Team (Late st Contact Info) Description 09/16/[address] [facility] [id number] [place] [phone] [place] [address] [place] [address] MyChart Communication Social History Tobacco Use Types [...] PM CDT Legal Sex Female 5:08 AM STUDENT LOAN COUNSELOR Gender Identity Female 03/19/2022 8:51 PM CDT Sexual Orientation Not on file documented as of this encounter Plan of Treatment Upcoming Encounters Date Type Department Care Team (Late st Contact Info) Description 10/26/2025 9:30 AM STUDENT LOAN COUNSELOR Office Visit [address] [phone] Belinda Brunson CNP [address] [place] [address] documented as of this encounter Visit Diagnoses Not on filedocumented in this encounter Additional Health Concerns Infection Onset Date Last Indicated Resolved Time Rule Out C-difficile 04/08/2023 04/08/2023 023 3:47 PM CDT Assessment Noted Time PHQ-9 Depression Total Score: 0 03/27/20 19 9:42 AM CDT documented as of this encounter Care Teams Substation Electrician Supervisor Relationship Specialty [place] [address] [place] [address] PCP - General Family Practice 11/16/15 10/15/24 Belinda Brunson CNP [address] [place] [address] PCP - General Nurse Practitioner - Family 10/16/24 [place] [address] [place] [address] Assigned PCP 11/21/15 04/06/21 Terrance Gudino DPM [address] [facility] [address] [place] [address] Assigned Musculoskeletal Provider 09/03/20 10/05/20 Yvonne Bailey MD [address] [facility] [place] [address] Assigned PCP 04/07/21 04/16/21 [place] [address] [place] [address] Assigned PCP 04/17/21 09/08/22 Beverley Leonard OD [address] [facility] [place] [address] Assigned Surgical Provider 10/02/21 12/31/21 [place] [address] [place] [address] Assigned PCP 09/09/22 10/12/23 [place] [address] [place] [address] Assigned PCP 10/13/23 11/02/24 Junior Flores MD [address] [facility] [address] [place] [address] Assigned OBGYN Provider 10/27/23 Belinda Brunson, LALO [address] [place] [address] Assigned PCP 11/03/24 documented as of this encounter
--- OUTSIDE RECORDS SUMMARY | 2025-02-21 11:24 | XMS_ITS | Encounter Summary ---
Author Organization [place] Address [address] [place] [address] Care Team Providers Care Blow Machine Tender Starch Spraying Name Role Phone Loretta Grove MD Primary Care Provider [phone] Loretta Grove MD Unavailable [phone] Terrance GudinoM Unavailable [phone] Yvonne Bailey MD Unavailable [phone] Loretta Grove MD Unavailable [phone] Beverley Leonard OD Unavailable Shirin Rendon MD Unavailable Loretta Grove MD Unavailable [phone] Junior Flores MD Unavailable Belinda Brunson CNP Primary Care Provider [phone] Belinda Brunson CNP Unavailable [phone] Reason for Visit * Reason Onset Date Comments MyChart Communication 07/21/2020 TSH result s Encounter Details Date Type Department Care Team (Late st Contact Info) Description 07/21/2020 MyC Medical [facility] [address] [place] [phone] [place] [address] [place] [address] MyChart Communication (TSH results) Social History Tobacco [...] PM CDT Legal Sex Female 5:08 AM CABIN AGENT Gender Identity Female 03/19/2022 8:51 PM CDT [...] st Contact Info) Description 10/26/2025 9:30 AM CABIN AGENT Office Visit [address] [phone] Belinda Brunson CNP [address] [place] [id number] documented as of this encounter Visit Diagnoses Not on filedocumented in this encounter Additional Health Concerns Infection Onset Date Last Indicated Resolved Time Rule Out C-difficile 04/08/2023 04/08/2023 023 3:47 PM CDT Assessment Noted Time PHQ-9 Depression Total Score: 0 03/27/20 19 9:42 AM CDT documented as of this encounter Care Teams Blow Machine Tender Starch Spraying Relationship Specialty [place] [address] [place] [address] PCP - General Family Practice 11/16/15 10/15/24 Belinda Brunson CNP [address] [place] [address] PCP - General Nurse Practitioner - Family 10/16/24 [place] [address] [place] [address] Assigned PCP 11/21/15 04/06/21 Terrance Gudino DPM [address] [facility] [address] [place] [address] Assigned Musculoskeletal Provider 09/03/20 10/05/20 Yvonne Bailey MD 3305 [place] [address] Assigned PCP 04/07/21 04/16/21 [place] [address] [place] [address] Assigned PCP 04/17/21 09/08/22 Beverley Leonard OD [address] [facility] [place] [address] Assigned Surgical Provider 10/02/21 12/31/21 [place] [address] [place] [address] Assigned PCP 09/09/22 10/12/23 [place] [address] [place] [address] Assigned PCP 10/13/23 11/02/24 Junior Flores MD [address] [facility], [address] [address] Assigned OBGYN Provider 10/27/23 Belinda Brunson, AUTOMOTIVE GENERATOR REPAIRER [address] [place] [address] Assigned PCP 11/03/24 documented as of this encounter
--- OUTSIDE RECORDS SUMMARY | 2025-02-21 11:24 | XMS_ITS | Encounter Summary ---
Author Organization [place] Address [address] [place] [address] Care Team Providers Care Employment Services Director Name Role Phone Loretta Grove MD Primary Care Provider [phone] Loretta Grove MD Unavailable [phone] Terrance GudinoM Unavailable [phone] Yvonne Bailey MD Unavailable [phone] Loretta Grove MD Unavailable [phone] Beverley Leonard OD Unavailable Shirin Rendon MD Unavailable Loretta Grove MD Unavailable [phone] Junior Flores MD Unavailable Belinda Brunson CNP Primary Care Provider [phone] Belinda Brunson CNP Unavailable [phone] Reason for Visit * Reason Onset Date Comments MyChart Communication 04/23/2019 Encounter Details Date Type Department Care Team (Late st Contact Info) Description 04/23/2019 MyC Medical [facility] [address] [place] [phone] [place] [address] [place] [address] MyChart Communication Social History Tobacco Use Types [...] PM CDT Legal Sex Female 5:08 AM INTERVENTIONAL RADIOLOGIST Gender Identity Female 03/19/2022 8:51 PM CDT Sexual Orientation Not on file documented as of this encounter Plan of Treatment Upcoming Encounters Date Type Department Care Team (Late st Contact Info) Description 10/26/2025 9:30 AM INTERVENTIONAL RADIOLOGIST Office Visit [address] [phone] Belinda Brunson CNP [address] [place] [address] documented as of this encounter Visit Diagnoses Not on filedocumented in this encounter Additional Health Concerns Infection Onset Date Last Indicated Resolved Time Rule Out C-difficile 04/08/2023 04/08/2023 023 3:47 PM CDT Assessment Noted Time PHQ-9 Depression Total Score: 0 03/27/20 19 9:42 AM CDT documented as of this encounter Care Teams Employment Services Director Relationship Specialty [place] [address] [place] [address] PCP - General Family Practice 11/16/15 10/15/24 Belinda Brunson CNP [address] [place] [address] PCP - General Nurse Practitioner - Family 10/16/24 [place] [address] [place] [address] Assigned PCP 11/21/15 04/06/21 Terrance Gudino DPM [address] [facility] [address] [place] [address] Assigned Musculoskeletal Provider 09/03/20 10/05/20 Yvonne Bailey MD [address] [facility] [place] [address] Assigned PCP 04/07/21 04/16/21 [place] [address] [place] [address] Assigned PCP 04/17/21 09/08/22 Beverley Leonard OD [address] [facility] [place] [address] Assigned Surgical Provider 10/02/21 12/31/21 [place] [address] [place] [address] Assigned PCP 09/09/22 10/12/23 [place] [address] [place] [address] Assigned PCP 10/13/23 11/02/24 Junior Flores MD [address] [facility] [address] [place] [address] Assigned OBGYN Provider 10/27/23 Belinda Brunson, LALO [address] [place] [address] Assigned PCP 11/03/24 documented as of this encounter
--- OUTSIDE RECORDS SUMMARY | 2025-02-21 11:24 | XMS_ITS | Encounter Summary ---
Author Organization [place] Address [address] [place] [address] Care Team Providers Care Landscaping Manager Name Role Phone Loretta Grove MD Primary Care Provider [phone] Loretta Grove MD Unavailable [phone] Beverley Leonard OD Unavailable [phone] Shirni Rendon MD Unavailable Loretta Grove MD Unavailable [phone] Junior Flores MD Unavailable Belinda Brunson CNP Primary Care Provider Belinda Brunson CNP Unavailable [phone] Reason for Visit * Reason Onset Date Comments Same Day Appointment 10/21/2021 Encounter Details Date Type Department Care Team (Late st Contact Info) Description 10/21/2021 [facility] [address] [place] [address] [place] [address] [place] [address] Same Day Appointment Social History [...] PM CDT Legal Sex Female 5:08 AM IMPORT CLERK Gender Identity Female 03/19/2022 8:51 PM CDT Sexual Orientation Not on file COVID-19 Exposure Response Date Recorded In the last month, have you been in contact with someone who was confirmed or suspected to have Coronavirus / COVID-19? No / Unsure 10/22/2021 6:30 AM IMPORT CLERK documented as of this encounter Miscellaneous Notes * Telephone Encounter - Cristin Alejandro - 10/21/2021 12:22 PM IMPORT CLERK Reason for call: Same Day Appointment Requested Provider: Giovanni Gallo or other Primary Care provider at [facility]. PCP: @[email or web address]@ Reason for visit: Lower right quadrant pain Duration of symptoms: Intermittent for 1 week Have you been treated for this in the past? No Additional comments: Patient is hoping to be worked into the clinic schedule today at [facility] by any provider. Per FNA, patient should be seen today and she is hoping to avoid Urgent care wait times of 3 hours. Please advise. Phone number to reach patient: Home number on file [phone] (home) Best Time: Bernardo Can we leave a detailed message on this number? YES Travel screening: Not Applicable RT CLERK documented in this encounter Plan of Treatment Upcoming Encounters Date Type Department Care Team (Late st Contact Info) Description 10/26/2025 9:30 AM IMPORT CLERK Office Visit [address] [place] [phone] Belinda Brunson, [address] [address] documented as of this encounter Visit Diagnoses Not on filedocumented in this encounter Additional Health Concerns Infection Onset Date Last Indicated Resolved Time Rule Out C-difficile 04/08/2023 04/08/2023 023 3:47 PM CDT Assessment Noted Time PHQ-9 Depression Total Score: 0 03/27/20 19 9:42 AM CDT documented as of this encounter Care Teams Landscaping Manager Relationship Specialty [place] [address] [place] [address] PCP - General Family Practice 11/16/15 10/15/24 Belinda Brunson CNP [address] [place] [address] PCP - General Nurse Practitioner - Family 10/16/24 [place] [address] [place] [address] Assigned PCP 04/17/21 09/08/22 Beverley Leonard OD [address] [facility] [place] [address] Assigned Surgical Provider 10/02/21 12/31/21 [place] [address] [place] [address] Assigned PCP 09/09/22 10/12/23 [place] [address] [place] [address] Assigned PCP 10/13/23 11/02/24 Junior Flores MD [address] [address] Assigned OBGYN Provider 10/27/23 Belinda Brunson, POWER SHOVEL OPERATOR [address] [place] [address] Assigned PCP 11/03/24 documented as of this encounter
--- OUTSIDE RECORDS SUMMARY | 2025-02-21 11:24 | XMS_ITS | Encounter Summary ---
Author Organization [place] Address [address] [place] [address] Care Team Providers Care Property Clerk Name Role Phone Junior Flores MD Unavailable Belinda Brunson CNP Primary Care Provider Belinda Brunson CNP Unavailable [phone] Encounter Details Date Type Department Care Team (Late st Contact Info) Description 01/28/2025 MyC Medical Advice [address] [phone] Belinda Brunson CNP [address] [place] [address] Social History Tobacco Use Types Packs/Day [...] than three times a week 10/12/2024 Attends Baptism Services Not on file 10/12 Active Member [...] Answer Date Recorded PHQ-2 Score 0 01/19/2025 [facility] - Occupational [...] in an abandoned building, in an overnight group home, or couch-surfing.) Yes 10/12/2024 Are you [...] PM CDT Legal Sex Female 5:08 AM GENERAL MANAGER FOOD Gender Identity Female 03/19/2022 8:51 PM CDT [...] follow up is needed. Jolly Leonard RN [place] Triage documented in this encounter Plan of Treatment Upcoming Encounters Date Type Department Care Team (Late st Contact Info) Description 10/26/2025 9:30 AM GENERAL MANAGER FOOD Office Visit [address] [phone] Belinda Brunson CNP [address] [place] [address] [id number] documented as of this encounter Visit Diagnoses Not on filedocumented in this encounter Additional Health Concerns Assessment Noted Time PHQ-9 Depression Total Score: 0 03/27/20 9:42 AM CDT documented as of this encounter Care Teams Property Clerk Relationship Specialty Start Date End Date Belinda Brunson CNP [address] [place] [address] [id number] PCP - General Nurse Practitioner - Family 10/16/24 Junior Flores MD [address] [address] Assigned OBGYN Provider 10/27/23 Belinda Brunson, LALO [address] [place] [address] Assigned PCP 11/03/24 documented as of this encounter
--- OUTSIDE RECORDS SUMMARY | 2025-02-21 11:24 | XMS_ITS | Encounter Summary ---
Author Organization [place] Address [address] [place] [address] Care Team Providers Care Hog Cooler Name Role Phone Loretta Grove MD Primary Care Provider [phone] Loretta Grove MD Unavailable [phone] Beverley Leonard OD Unavailable Shirin Rendon MD Unavailable Loretta Grove MD Unavailable [phone] Junior Flores MD Unavailable Belinda Brunson CNP Primary Care Provider Belinda Brunson CNP Unavailable [phone] Reason for Visit * Reason Onset Date Comments Refill Request 07/13/2021 Encounter Details Date Type Department Care Team (Late st Contact Info) Description 07/13/2021 [facility] [address] [place] [address] [place] [address] [place] [address] Refill Request Social History Tobacco [...] PM CDT Legal Sex Female 5:08 AM ANIMAL NUTRITION CONSULTANT Gender Identity Female 03/19/2022 8:51 PM CDT [...] 07/14/2021 7:52 AM CDT Prescription approved per [facility] Refill Protocol. Roney Benavides RN documented in this encounter Plan of Treatment Upcoming Encounters Date Type Department Care Team (Late st Contact Info) Description 10/26/2025 9:30 AM ANIMAL NUTRITION CONSULTANT Office Visit [address] [place] [phone] Belinda rBunson, [facility] [address] [place] [address] documented as of this encounter Results * T4, free (08/29/2021 8:24 AM CDT) Free T4 1.02 0.76 - 1.46 ng/dL 08/29/2021 1:02 PM CDT [facility] Blood BLOOD SPECIMEN / Unknown Venipuncture / Unknown 08/29/2021 8:24 AM CDT 08/29/2021 8:24 AM CDT us Loretta Grove MD LAB - BLOOD ORDERABLES Fi nal Result [facility]X LAB[facility]AT[facility] [address] [place] [address] Lab (no room number, 1st floor of [facility]) [place] [address], [facility] [phone] * TSH (08/29/2021 8:24 AM CDT) TSH 2.10 0.40 - 4.00 mU/L 08/29/2021 1:09 PM CDT [facility] LAB[facility] Blood BLOOD SPECIMEN / Unknown Venipuncture / Unknown 08/29/2021 8:24 AM CDT 08/29/2021 8:24 AM CDT us Loretta Grove MD LAB - BLOOD ORDERABLES Fi nal Result OX LABORATORY [facility] [address] [place] [address] Lab (no room number, 1st floor of [facility]) [place] [address], [facility] [phone] documented in this encounter Visit Diagnoses Diagnosis PVC's (premature ventricular contractions) Other premature beats Acquired hypothyroidism Unspecified hypothyroidism documented in this encounter Additional Health Concerns Infection Onset Date Last Indicated Resolved Time Rule Out C-difficile 04/08/2023 04/08/2023 023 3:47 PM CDT Assessment Noted Time PHQ-9 Depression Total Score: 0 03/27/20 19 9:42 AM CDT documented as of this encounter Care Teams Hog Cooler Relationship Specialty [place] [address] [place] [address] PCP - General Family Practice 11/16/15 10/15/24 Belinda Brunson, LALO [address] [place] [address] PCP - General Nurse Practitioner - Family 10/16/24 [place] [address] [place] [address] Assigned PCP 04/17/21 09/08/[address] [place] [address] [place] [address] [place] [address] Assigned Surgical Provider 10/02/21 12/31/21 [place] [address] [place] [address] Assigned PCP 09/09/22 10/12/23 [place] [address] [place] [address] Assigned PCP 10/13/23 11/02/24 Junior Flores MD [address] [facility], [address] [address] Assigned OBGYN Provider 10/27/23 Belinda Brunson CNP [address] [place] [address] Assigned PCP 11/03/24 documented as of this encounter
--- OUTSIDE RECORDS SUMMARY | 2025-02-21 11:24 | XMS_ITS | Encounter Summary ---
Author Organization [place] Address [address] [place] [address] Care Team Providers Care Marine Rigger Name Role Phone Loretta Grove MD Primary Care Provider [phone] Loretta Grove MD Unavailable [phone] Loretta Grove MD Unavailable [phone] Terrance Gudino DPM Unavailable [phone] Yvonne Bailey MD Unavailable [phone] Loretta Grove MD Unavailable [phone] Beverley Leonard OD Unavailable [phone] Shirin Rendon MD Unavailable Loretta Grove MD Unavailable [phone] Junior Flores MD Unavailable Belinda Brunson CNP Primary Care Provider [phone] Belinda Brunson CNP Unavailable [phone] Encounter Details Date Type Department Care Team (Late st Contact Info) Description 03/16/2016 MyC Medical Advice [address] [address] Analia Cui MD [address] [facility] [place] [address] Social History Tobacco Use Types Packs/Day Years Used Date Smoking Tobacco: Never Smokeless Tobacco: Never Alcohol Use Standard Drinks/Week Comments No 0 (1 standard drink = 0.6 oz pur e alcohol) Comments No Sex and Gender Information Value Date Recorded Sex Assigned at Female 03/19/2022 8:51 PM CDT Legal Sex Female 5:08 AM SONOGRAPHER Gender Identity Female 03/19/2022 8:51 PM CDT Sexual Orientation Not on file documented as of this encounter Plan of Treatment Upcoming Encounters Date Type Department Care Team (Late st Contact Info) Description 10/26/2025 9:30 AM SONOGRAPHER Office Visit [address] [phone] Belinda Brunson CNP [address] [place] [address] documented as of this encounter Visit Diagnoses Not on filedocumented in this encounter Additional Health Concerns Infection Onset Date Last Indicated Resolved Time Rule Out C-difficile 04/08/2023 04/08/2023 023 3:47 PM CDT documented as of this encounter Care Teams Marine Rigger Relationship Specialty [place] [address] [place] [address] PCP - General Family Practice 11/16/15 10/15/24 [place] [address] [place] [address] PCP - Assigned PCP 11/21/15 01/14/19 Belinda Brunson CNP [address] [place] [address]85[address] PCP - General Nurse Practitioner - Family 10/16/24 [place] [address] [place] [address] Assigned PCP 11/21/15 04/06/21 Terrance Gudino DPM [address] [facility] [address] [place] [address] Assigned Musculoskeletal Provider 09/03/20 10/05/20 Yvonne Bailey MD [address] [place] [address] Assigned PCP 04/07/21 04/16/21 [place] [address] [place] [address] Assigned PCP 04/17/21 09/08/22 [place] [address] [place] [address] [place] [address] Assigned Surgical Provider 10/02/21 12/31/21 [place] [address] [place] [address] Assigned PCP 09/09/22 10/12/23 [place] [address] [place] [address] Assigned PCP 10/13/23 11/02/24 Junior Flores MD [address] [facility] [address] [address] Assigned OBGYN Provider 10/27/23 Belinda Brunson, LALO [address] [place] [address] Assigned PCP 11/03/24 documented as of this encounter
--- OUTSIDE RECORDS SUMMARY | 2025-02-21 11:24 | XMS_ITS | Encounter Summary ---
Author Organization [facility] Address [address] [place] [address] Care Team Providers Care Smocker Name Role Phone Loretta Grove MD Primary Care Provider [phone] Loretta Grove MD Unavailable [phone] Loretta Grove MD Unavailable [phone] Terrance Gudino DPM Unavailable [phone] Yvonne Bailey MD Unavailable [phone] Loretta Grove MD Unavailable [phone] Beverley Leonard OD Unavailable Shirin Rendon MD Unavailable Loretta Grove MD Unavailable [phone] Junior Flores MD Unavailable Belinda Brunson CNP Primary Care Provider [phone] Belinda Brunson CNP Unavailable [phone] Encounter Details Date Type Department Care Team (Late st Contact Info) Description 03/16/2016 [facility] [id number] [place] [phone] Maria Alejandra Sung APRN BAKER BREAD [address] [place] [address] [address] [place] [address] Social History Tobacco Use Types Packs/Day Years Used Date Smoking Tobacco: Never Smokeless Tobacco: Never Alcohol Use Standard Drinks/Week Comments No 0 (1 standard drink = 0.6 oz pur e alcohol) Comments No Sex and Gender Information Value Date Recorded Sex Assigned at Female 03/19/2022 8:51 PM CDT Legal Sex Female 5:08 AM SECONDARY MARKET MANAGER Gender Identity Female 03/19/2022 8:51 PM CDT Sexual Orientation Not on file documented as of this encounter Plan of Treatment Upcoming Encounters Date Type Department Care Team (Late st Contact Info) Description 10/26/2025 9:30 AM SECONDARY MARKET MANAGER Office Visit [address] [address] Belinda Brunson CNP [address] [place] [address] documented as of this encounter Visit Diagnoses Not on filedocumented in this encounter Additional Health Concerns Infection Onset Date Last Indicated Resolved Time Rule Out C-difficile 04/08/2023 04/08/2023 023 3:47 PM CDT documented as of this encounter Care Teams Smocker Relationship Specialty [place] [address] [place] [address] PCP - General Family Practice 11/16/15 10/15/24 [place] [address] [place] [address] PCP - Assigned PCP 11/21/15 01/14/19 Belinda Brunson CNP [address] [place] [address] PCP - General Nurse Practitioner - Family 10/16/24 [place] [address] [place] [address] Assigned PCP 11/21/15 04/06/21 Terrance Gudino DPM [address] [facility] [address] [place] [address] Assigned Musculoskeletal Provider 09/03/20 10/05/20 [place] [address] [place] [address] Assigned PCP 04/07/21 04/16/21 [place] [address] [place] [address] Assigned PCP 04/17/21 09/08/22 Beverley Leonard OD [address] [place] [address] [place] [address] Assigned Surgical Provider 10/02/21 12/31/21 [place] [address] [place] [address] Assigned PCP 09/09/22 10/12/23 [place] [address] [place] [address] Assigned PCP 10/13/23 11/02/24 Junior Flores MD [address], [facility] [address] [place] [address] Assigned OBGYN Provider 10/27/23 Belinda Brunson, BAKER BREAD [address] [place] [address] Assigned PCP 11/03/24 documented as of this encounter
--- OUTSIDE RECORDS SUMMARY | 2025-02-21 11:24 | XMS_ITS | Encounter Summary ---
Author Organization [facility] Address [address] [place] [address] Care Team Providers Care Skiff Operator Name Role Phone Loretta Grove MD Primary Care Provider [phone] Loretta Grove MD Unavailable [phone] Terrance GudinoM Unavailable [phone] Yvonne Bailey MD Unavailable [phone] Loretta Grove MD Unavailable [phone] Beverley Leonard OD Unavailable Shirin Rendon MD Unavailable Loretta Grove MD Unavailable [phone] Junior Flores MD Unavailable Belinda Brunson CNP Primary Care Provider [phone] Belinda Brunson CNP Unavailable [phone] Encounter Details Date Type Department Care Team (Late st Contact Info) Description 05/21/2020 [facility] [address] [place] [address] [place] [address] [place] [address] Social History Tobacco Use Types Packs/Day Years Used Date Smoking Tobacco: Never Smokeless Tobacco: Never Alcohol Use Standard Drinks/Week Comments Yes 0 (1 standard drink = 0.6 oz pur e alcohol) wine sometimes PHQ-2 Answer Date Recorded PHQ-2 Score 0 11/20/2018 Comments No Sex and Gender Information Value Date Recorded Sex Assigned at Female 03/19/2022 8:51 PM CDT Legal Sex Female 5:08 AM HADOOP INFRASTRUCTURE ARCHITECT Gender Identity Female 03/19/2022 8:51 PM CDT [...] st Contact Info) Description 10/26/2025 9:30 AM HADOOP INFRASTRUCTURE ARCHITECT Office Visit [address] [phone] Belinda Brunson CNP [address] [place] [address] 671382 documented as of this encounter Visit Diagnoses Not on filedocumented in this encounter Additional Health Concerns Infection Onset Date Last Indicated Resolved Time Rule Out C-difficile 04/08/2023 04/08/2023 023 3:47 PM CDT Assessment Noted Time PHQ-9 Depression Total Score: 0 03/27/20 19 9:42 AM CDT documented as of this encounter Care Teams Skiff Operator Relationship Specialty [place] [address] [place] [address] PCP - General Family Practice 11/16/15 10/15/24 Belinda Brunson CNP [address] [place] [address] 083872 PCP - General Nurse Practitioner - Family 10/16/24 [place] [address] [place] [address] Assigned PCP 11/21/15 04/06/21 Terrance Gudino DPM [address] [facility] [address] [place] [address] Assigned Musculoskeletal Provider 09/03/20 10/05/20 [place] [address] [place] [address] Assigned PCP 04/07/21 04/16/21 [place] [address] [place] [address] Assigned PCP 04/17/21 09/08/22 Beverley Leonard OD [address] [place] [address] [place] [address] Assigned Surgical Provider 10/02/21 12/31/21 [place] [address] [place] [address] Assigned PCP 09/09/22 10/12/23 [place] [address] [place] [address] Assigned PCP 10/13/23 11/02/24 Junior Flores MD [address], [facility] 100 [place] [address] Assigned OBGYN Provider 10/27/23 Belinda Brunson, MEDICAL LABORATORY TECHNICIAN [address] [place] [address] Assigned PCP 11/03/24 documented as of this encounter
--- OUTSIDE RECORDS SUMMARY | 2025-02-21 11:24 | XMS_ITS | Encounter Summary ---
Author Organization [place] [place] Address [address] [place] [address] Care Team Providers Care Under Seal Operator Name Role Phone Loretta Grove MD Primary Care Provider [phone] Loretta Grove MD Unavailable [phone] Loretta Grove MD Unavailable [phone] Terrance Gudino DPM Unavailable [phone] Yvonne Bailey MD Unavailable [phone] Loretta Grove MD Unavailable [phone] Beverley Leonard OD Unavailable [phone] Shirin Rendon MD Unavailable Loretta Grove MD Unavailable [phone] Junior Flores MD Unavailable Belinda Brunson CNP Primary Care Provider [phone] Belinda Brunson CNP Unavailable [phone] Reason for Visit * Reason Onset Date Comments Trayt Communication 10/25/2016 Encounter Details Date Type Department Care Team (Late st Contact Info) Description 10/25/2016 [facility] [id number] [place] [phone] [place] [address] [place] [address] MyChart Communication Social History Tobacco Use Types Packs/Day Years Used Date Smoking Tobacco: Never Smokeless Tobacco: Never Alcohol Use Standard Drinks/Week Comments No 0 (1 standard drink = 0.6 oz pur e alcohol) Comments No Sex and Gender Information Value Date Recorded Sex Assigned at Female 03/19/2022 8:51 PM CDT Legal Sex Female 5:08 AM RELEASE MANAGER Gender Identity Female 03/19/2022 8:51 PM CDT Sexual Orientation Not on file documented as of this encounter Plan of Treatment Upcoming Encounters Date Type Department Care Team (Late st Contact Info) Description 10/26/2025 9:30 AM RELEASE MANAGER Office Visit [address] [phone] Belinda Brunson, LALO [address] [place] [address] documented as of this encounter Visit Diagnoses Not on filedocumented in this encounter Additional Health Concerns Infection Onset Date Last Indicated Resolved Time Rule Out C-difficile 04/08/2023 04/08/2023 023 3:47 PM CDT documented as of this encounter Care Teams Under Seal Operator Relationship Specialty [place] [address] [place] [address] PCP - General Family Practice 11/16/15 10/15/24 [place] [address] [place] [address] PCP - Assigned PCP 11/21/15 01/14/19 Belinda Brunson CNP [address] [place] [address] PCP - General Nurse Practitioner - Family 10/16/24 [place] [address] [place] [address] Assigned PCP 11/21/15 04/06/21 Terrance Gudino DPM [address] [facility] [address] [place] [address] Assigned Musculoskeletal Provider 09/03/20 10/05/20 Yvonne Bailey MD [address] [facility] [place] [place] [address] Assigned PCP 04/07/21 04/16/21 [place] [address] [place] [address] Assigned PCP 04/17/21 09/08/22 Beverley Leonard OD [facility] [place] [address] Assigned Surgical Provider 10/02/21 12/31/21 [place] [address] [place] [address] Assigned PCP 09/09/22 10/12/23 [place] [address] [place] [address] Assigned PCP 10/13/23 11/02/24 Junior Flores MD [address] [facility] 100 [place] [address] Assigned OBGYN Provider 10/27/23 Belinda Brunson, LALO [address] [place] [address] 587932 Assigned PCP 11/03/24 documented as of this encounter
--- OUTSIDE RECORDS SUMMARY | 2025-02-21 11:24 | XMS_ITS | Encounter Summary ---
Author Organization [facility] Address [address] [place] [address] Care Team Providers Care Manager Er Name Role Phone Junior Flores MD Unavailable [phone] Belinda Brunson CNP Primary Care Provider [phone] Belinda Brunson CNP Unavailable [phone] Encounter Details Date Type Department Care Team [...] than three times a week 10/12/2024 Attends Scientology Services Not on file 10/12 Active Member [...] Answer Date Recorded PHQ-2 Score 0 01/19/2025 [facility] of Occupat ional [facility] - Occupational Stress Questionnaire Answer Date [...] in an abandoned building, in an overnight custodial, or couch-surfing.) Yes 10/12/2024 Are you worried [...] PM CDT Legal Sex Female 5:08 AM CEPHALOMETRIC TECHNICIAN Gender Identity Female 03/19/2022 8:51 PM CDT Sexual Orientation Not on file documented as of this encounter Plan of Treatment Upcoming Encounters Date Type Department Care Team (Late st Contact Info) Description 10/26/2025 9:30 AM CEPHALOMETRIC TECHNICIAN Office Visit [address] [address] Belinda Brunson CNP [address] [place] [address] 334422 documented as of this encounter Visit Diagnoses Not on filedocumented in this encounter Additional Health Concerns Assessment Noted Time PHQ-9 Depression Total Score: 0 03/27/20 19 9:42 AM CDT documented as of this encounter Care Teams Manager Er Relationship Specialty Start Date End Date Belinda Brunson CNP [address] [place] [address] 930322 PCP - General Nurse Practitioner - Family 10/16/24 Junior Flores MD [address] [address] Assigned OBGYN Provider 10/27/23 Belinda Brunson CNP [address] [place] [address] 383222 Assigned PCP 11/03/24 documented as of this encounter
--- OUTSIDE RECORDS SUMMARY | 2025-02-21 11:24 | XMS_ITS | Encounter Summary ---
Author Organization [facility] Address [address] [place] [address] Care Team Providers Care Customer Operations Associate Name Role Phone Loretta Grove MD Primary Care Provider [phone] Loretta Grove MD Unavailable [phone] Lroetta Grove MD Unavailable [phone] Terrance Gudino DPM Unavailable [phone] Yvonne Bailey MD Unavailable [phone] Loretta Grove MD Unavailable [phone] Beverley Leonard OD Unavailable [phone] Shirin Rendon MD Unavailable Loretta Grove MD Unavailable [phone] Junior Flores MD Unavailable Belinda Brunson CNP Primary Care Provider [phone] Belinda Brunson CNP Unavailable [phone] Encounter Details Date Type Department Care Team (Late st Contact Info) Description 03/17/2016 [facility] [address] [address] Analia Cui MD [address] [facility] [place] [address] Social History Tobacco Use Types Packs/Day Years Used Date Smoking Tobacco: Never Smokeless Tobacco: Never Alcohol Use Standard Drinks/Week Comments No 0 (1 standard drink = 0.6 oz pur e alcohol) Comments No Sex and Gender Information Value Date Recorded Sex Assigned at Female 03/19/2022 8:51 PM CDT Legal Sex Female 5:08 AM MERRY GO ROUND ATTENDANT Gender Identity Female 03/19/2022 8:51 PM CDT Sexual Orientation Not on file documented as of this encounter Plan of Treatment Upcoming Encounters Date Type Department Care Team (Late st Contact Info) Description 10/26/2025 9:30 AM MERRY GO ROUND ATTENDANT Office Visit [address] [phone] Belinda Brunson CNP [address] [place] [address] documented as of this encounter Visit Diagnoses Not on filedocumented in this encounter Additional Health Concerns Infection Onset Date Last Indicated Resolved Time Rule Out C-difficile 04/08/2023 04/08/2023 023 3:47 PM CDT documented as of this encounter Care Teams Customer Operations Associate Relationship Specialty [place] [address] [place] [address] PCP - General Family Practice 11/16/15 10/15/24 [place] [address] [place] [address] PCP - Assigned PCP 11/21/15 01/14/19 Belinda Brunson CNP [address] [place] [address] 859182 PCP - General Nurse Practitioner - Family 10/16/24 [place] [address] [place] [address] Assigned PCP 11/21/15 04/06/21 Terrance Gudino DPM [address] [facility] [address] [place] [address] Assigned Musculoskeletal Provider 09/03/20 10/05/20 Yvonne Bailey MD [address] [place] [address] Assigned PCP 04/07/21 04/16/21 [place] [address] [place] [address] Assigned PCP 04/17/21 09/08/22 [place] [address] [place] [address] [place] [address] Assigned Surgical Provider 10/02/21 12/31/21 [place] [address] [place] [address] Assigned PCP 09/09/22 10/12/23 [place] [address] [place] [address] Assigned PCP 10/13/23 11/02/24 Junior Flores MD [address] [facility] [address] [address] Assigned OBGYN Provider 10/27/23 Belinda Brunson, LALO [address] [place] [address] Assigned PCP 11/03/24 documented as of this encounter
--- OUTSIDE RECORDS SUMMARY | 2025-02-21 11:24 | XMS_ITS | Encounter Summary ---
Author Organization [place] Address [address] [place] [address] Care Team Providers Care Human Resource Internship Name Role Phone Loretta Grove MD Primary Care Provider Shirin Rendon MD Unavailable Loretta Grove MD Unavailable [phone] Junior Flores MD Unavailable Belinda Brunson CNP Primary Care Provider Belinda Brunson CNP Unavailable [phone] Reason for Visit * Reason Onset Date Comments MyChart Communication 04/05/2023 Encounter Details Date Type Department Care Team (Late st Contact Info) Description 04/05/2023 [facility] [address] [place] [address] [place] [address] [place] [address] MyChart Communication Social History Tobacco [...] often do you attend chur ch or restoration services? More than 4 times per year [...] Answer Date Recorded PHQ-2 Score 0 08/29/2022 [facility] of Occupat ional Health - Occupational Stress [...] place to sleep or slept in a senior living (including now)? 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 As she took the imodium when [...] st Contact Info) Description 10/26/2025 9:30 AM SENIOR C DEVELOPER Office Visit [address] [address] Belinda Brunson, [address] [address] documented as of this encounter Results * [...] performed by multiplexed, qualitative PCR using the [employer] Enteric Pathogens Nucleic Acid Test. Results should [...] encode for Shiga toxins 1 and 2. Loretta Grove MD LAB - MICRO GENERAL ORDER RONY Final Result [facility] Inf. Diseases Diag. Lab [address] [facility], [address] [place] [address], [facility] [phone] * C. difficile Toxin B PCR with reflex to C. difficile Antigen and Toxins A/B EIA (04/08/2023 10:30 AM CDT) [facility] C Difficile Toxin B by PCR Negative [...] LABORATORY - 04/08/2023 3:47 PM CDT The [employer] Xpert C. difficile Assay, performed on the [employer] Instrument Systems, is a qualitative in vitro [...] an aid in the diagnosis of CDI. us Loretta Grove MD LAB - MICRO GENERAL ORDER RONY Final Result Performing Organization Address City/[facility] Co de Phone Number [facility] Inf. Diseases Diag. Lab [address] [facility], [address] [address], [facility] [phone] * Ova and Parasite Exam Routine (04/08/2023 10:30 AM CDT) [facility] OVA AND PARASITE EXAM Negative Negative ARNALDO 04/10/2023 3:24 PM CDT [facility] Comment:A single negative sp ecimen does not rule out parasitic infection. Stool RECTAL CONTENTS / Unknown Non-blood Collection / Unknown 04/08/2023 10:30 AM CDT 04/08/2023 11:36 AM CDT Narrative [facility] - 04/10/2023 3:24 PM CDT Cryptosporidium, Cyclospora and Microsporidia are not readily detected by this method. us Loretta Grove MD LAB - MICRO GENERAL ORDER RONY Final Result Performing Organization Address City/[facility]/ZIP Co de Phone Number [facility] Inf. Diseases Diag. Lab [address] [facility], [address] [address], [facility] [phone] documented in this encounter Visit Diagnoses Diagnosis Diarrhea, unspecified type- Primary documented in this encounter Additional Health Concerns Infection Onset Date Last Indicated Resolved Time Rule Out C-difficile 04/08/2023 04/08/2023 023 3:47 PM CDT Assessment Noted Time PHQ-9 Depression Total Score: 0 03/27/20 19 9:42 AM CDT documented as of this encounter Care Teams Human Resource Internship Relationship Specialty [place] [address] [place] [address] PCP - General Family Practice 11/16/15 10/15/24 Belinda Brunson CNP [address] [place] [address] PCP - General Nurse Practitioner - Family 10/16/24 [place] [address] [place] [address] Assigned PCP 09/09/22 10/12/23 [place] [address] [place] [address] Assigned PCP 10/13/23 11/02/24 Junior Flores MD [address] [facility], [address] [address] Assigned OBGYN Provider 10/27/23 Belinda Brunson CNP [address] [place] [address] Assigned PCP 11/03/24 documented as of this encounter
--- OUTSIDE RECORDS SUMMARY | 2025-02-21 11:24 | XMS_ITS | Encounter Summary ---
Author Organization [place] Address [address] [place] [address] Care Team Providers Care Casing Man Name Role Phone Loretta Grove MD Primary Care Provider [phone] Loretta Grove MD Unavailable [phone] Loretta Grove MD Unavailable [phone] Terrance Gudino DPM Unavailable [phone] Yvonne Bailey MD Unavailable [phone] Loretta Grove MD Unavailable [phone] Beverley Leonard OD Unavailable [phone] Shirin Rendon MD Unavailable Loretta Grove MD Unavailable [phone] Junior Flores MD Unavailable Belinda Brunson CNP Primary Care Provider [phone] Belinda Brunson CNP Unavailable [phone] Encounter Details Date Type Department Care Team (Late st Contact Info) Description 12/01/2018 [facility] [place] [facility] [address] [place] [phone] [place] [address] [place] [address] Social History Tobacco Use Types Packs/Day Years Used Date Smoking Tobacco: Never Smokeless Tobacco: Never Alcohol Use Standard Drinks/Week Comments Yes 0 (1 standard drink = 0.6 oz pur e alcohol) wine sometimes PHQ-2 Answer Date Recorded PHQ-2 Score 0 11/20/2018 Comments No Sex and Gender Information Value Date Recorded Sex Assigned at Female 03/19/2022 8:51 PM CDT Legal Sex Female 5:08 AM ELECTRONICS RECYCLER Gender Identity Female 03/19/2022 8:51 PM CDT Sexual Orientation Not on file documented as of this encounter Plan of Treatment Upcoming Encounters Date Type Department Care Team ([facility] Contact Info) Description 10/26/2025 9:30 AM ELECTRONICS RECYCLER Office Visit [address] [phone] Belinda Brunson, LALO [address] [place] [address] documented as of this encounter Visit Diagnoses Not on filedocumented in this encounter Additional Health Concerns Infection Onset Date Last Indicated Resolved Time Rule Out C-difficile 04/08/2023 04/08/2023 023 3:47 PM CDT documented as of this encounter Care Teams Casing Man Relationship Specialty [place] [address] [place] [address] PCP - General Family Practice 11/16/15 10/15/24 [place] [address] [place] [address] PCP - Assigned PCP 11/21/15 01/14/19 Belinda Brunson CNP [address] [place] [address] PCP - General Nurse Practitioner - Family 10/16/24 [place] [address] [place] [address] Assigned PCP 11/21/15 04/06/21 Terrance Gudino DPM [address] [facility] [address] [place] [address] Assigned Musculoskeletal Provider 09/03/20 10/05/20 Yvonne Bailey MD [address] [facility] [place] [address] Assigned PCP 04/07/21 04/16/21 [place] [address] [place] [address] Assigned PCP 04/17/21 09/08/22 Beverley Leonard OD [address] [facility] [place] [address] Assigned Surgical Provider 10/02/21 12/31/21 [place] [address] [place] [address] Assigned PCP 09/09/22 10/12/23 [place] [address] [place] [address] Assigned PCP 10/13/23 11/02/24 Junior Flores MD [address], [facility] [address] [place] [address] Assigned OBGYN Provider 10/27/23 Belinda Brunson CNP [address] [place] [address] 859182 Assigned PCP 11/03/24 documented as of this encounter
--- OUTSIDE RECORDS SUMMARY | 2025-02-21 11:24 | XMS_ITS | Encounter Summary ---
Author Organization [facility] Address [address] [place] [address] Care Team Providers Care Nurse Charge Rn Name Role Phone Loretta Grove MD Primary Care Provider Loretta Grove MD Unavailable [phone] Shirin Rendon MD Unavailable Loretta Grove MD Unavailable [phone] Junior Flores MD Unavailable Belinda Brunson CNP Primary Care Provider [phone] Belinda Brunson CNP Unavailable [phone] Encounter Details Date Type Department Care Team (Late st Contact Info) Description 03/03/2022 MyC Medical Advice [facility] [address] [place] [phone] Amie Hilton, VP SECURITY Social History Tobacco Use Types Packs/Day Years Used Date Smoking Tobacco: Never Smokeless Tobacco: Never Alcohol Use Standard Drinks/Week Comments Yes 0 (1 standard drink = 0.6 oz pur e alcohol) wine sometimes PHQ-2 Answer Date Recorded PHQ-2 Score 0 04/15/2021 Comments No Sex and Gender Information Value Date Recorded Sex Assigned at Female 03/19/2022 8:51 PM CDT Legal Sex Female 5:08 AM TURBINE OPERATOR Gender Identity Female 03/19/2022 8:51 PM CDT Sexual Orientation Not on file documented as of this encounter Plan of Treatment Upcoming Encounters Date Type Department Care Team (Late st Contact Info) Description 10/26/2025 9:30 AM TURBINE OPERATOR Office Visit [address] [address] Belinda Brunson CNP [address] [place] [address] documented as of this encounter Visit Diagnoses Not on filedocumented in this encounter Additional Health Concerns Infection Onset Date Last Indicated Resolved Time Rule Out C-difficile 04/08/2023 04/08/2023 023 3:47 PM CDT Assessment Noted Time PHQ-9 Depression Total Score: 0 03/27/20 19 9:42 AM CDT documented as of this encounter Care Teams Nurse Charge Rn Relationship Specialty [place] [address] [place] [address] PCP - General Family Practice 11/16/15 10/15/24 Belinda Brunson CNP [address] [place] [address] PCP - General Nurse Practitioner - Family 10/16/24 [place] [address] [place] [address] Assigned PCP 04/17/21 09/08/22 [place] [address] [place] [address] Assigned PCP 09/09/22 10/12/23 [place] [address] [place] [address] Assigned PCP 10/13/23 11/02/24 Junior Flores MD [address] [facility], [facility] [address] [place] [address] Assigned OBGYN Provider 10/27/23 Belinda rBunson, LALO [address] [place], [place] [address] Assigned PCP 11/03/24 documented as of this encounter
--- OUTSIDE RECORDS SUMMARY | 2025-02-21 11:24 | XMS_ITS | Encounter Summary ---
Author Organization [facility] Address [address] [place] [address] Care Team Providers Care Tobacco Sample Puller Name Role Phone Loretta Grove MD Primary Care Provider [phone] Loretta Grove MD Unavailable [phone] Beverley Leonard OD Unavailable Shirin Rendon MD Unavailable Loretta Grove MD Unavailable [phone] Junior Flores MD Unavailable Belinda Brunson CNP Primary Care Provider [phone] Belinda Brunson CNP Unavailable [phone] Encounter Details Date Type Department Care Team (Late st Contact Info) Description 10/21/2021 MyC Medical Advice [facility] [address] [place] [address] Magdalena Burger Social History Tobacco [...] PM CDT Legal Sex Female 5:08 AM FIRE TRUCK DRIVER Gender Identity Female 03/19/2022 8:51 PM CDT Sexual Orientation Not on file COVID-19 Exposure Response Date Recorded In the last month, have you been in contact with someone who was confirmed or suspected to have Coronavirus / COVID-19? No / Unsure 10/22/2021 6:30 AM FIRE TRUCK DRIVER documented as of this encounter Plan of Treatment Upcoming Encounters Date Type Department Care Team (Late st Contact Info) Description 10/26/2025 9:30 AM FIRE TRUCK DRIVER Office Visit [address] [phone] Belinda Brunson CNP [address] [place] [address] documented as of this encounter Visit Diagnoses Not on filedocumented in this encounter Additional Health Concerns Infection Onset Date Last Indicated Resolved Time Rule Out C-difficile 04/08/2023 04/08/2023 023 3:47 PM CDT Assessment Noted Time PHQ-9 Depression Total Score: 0 03/27/20 19 9:42 AM CDT documented as of this encounter Care Teams Tobacco Sample Puller Relationship Specialty [place] [address] [place] [address] PCP - General Family Practice 11/16/15 10/15/24 Belinda Brunson CNP [address] [place] [address] PCP - General Nurse Practitioner - Family 10/16/24 [place] [address] [place] [address] Assigned PCP 04/17/21 09/08/22 Beverley Leonard OD [address] [facility] [place] [address] Assigned Surgical Provider 10/02/21 12/31/21 [place] [address] [place] [address] Assigned PCP 09/09/22 10/12/23 [place] [address] [place] [address] Assigned PCP 10/13/23 11/02/24 Junior Flores MD [address] [facility] [address] [address] Assigned OBGYN Provider 10/27/23 Belinda Brunson, OUTFITTER CABIN [address] [place], [place] [address] Assigned PCP 11/03/24 documented as of this encounter
--- OUTSIDE RECORDS SUMMARY | 2025-02-21 11:24 | XMS_ITS | Encounter Summary ---
Author Organization [facility] Address [address] [place] [address] Care Team Providers Care Machine Spreader Name Role Phone Loretta Grove MD Primary Care Provider [phone] Loretta Grove MD Unavailable [phone] Terrance GudinoM Unavailable [phone] Yvonne Bailey MD Unavailable [phone] Loretta Grove MD Unavailable [phone] Beverley Leonard OD Unavailable Shirin Rendon MD Unavailable Loretta Grove MD Unavailable [phone] Junior Flores MD Unavailable Belinda Brunson CNP Primary Care Provider [phone] Belinda Brunson CNP Unavailable [phone] Encounter Details Date Type Department Care Team (Late st Contact Info) Description 07/13/2020 [facility] [address] [place] [phone] Ilda Solorzano Social History Tobacco Use Types [...] PM CDT Legal Sex Female 5:08 AM DELIVERY SALES WORKER Gender Identity Female 03/19/2022 8:51 PM [...] st Contact Info) Description 10/26/2025 9:30 AM DELIVERY SALES WORKER Office Visit [address] [address] Belinda Brunson CNP [address] [place] [address] documented as of this encounter Visit Diagnoses Not on filedocumented in this encounter Additional Health Concerns Infection Onset Date Last Indicated Resolved Time Rule Out C-difficile 04/08/2023 04/08/2023 023 3:47 PM CDT Assessment Noted Time PHQ-9 Depression Total Score: 0 03/27/20 19 9:42 AM CDT documented as of this encounter Care Teams Machine Spreader Relationship Specialty [place] [address] [place] [address] PCP - General Family Practice 11/16/15 10/15/24 Belinda Brunson CNP [address] [place] [address] PCP - General Nurse Practitioner - Family 10/16/24 [place] [address] [place] [address] Assigned PCP 11/21/15 04/06/21 Terrance Gudino DPM [address] [facility] [address] [place] [address] Assigned Musculoskeletal Provider 09/03/20 10/05/20 Yvonne Bailey MD [address] [place] [address] Assigned PCP 04/07/21 04/16/21 [place] [address] [place] [address] Assigned PCP 04/17/21 09/08/22 Beverley Leonard OD [address] [place] [address] Assigned Surgical Provider 10/02/21 12/31/21 [place] [address] [place] [address] Assigned PCP 09/09/22 10/12/23 [place] [address] [place] [address] Assigned PCP 10/13/23 11/02/24 Junior Flores MD [address], [facility] [address] [place] [address] Assigned OBGYN Provider 10/27/23 Belinda Brunson, SALESPERSON [employer] [address] [place] [address] Assigned PCP 11/03/24 documented as of this encounter
--- OUTSIDE RECORDS SUMMARY | 2025-02-21 11:24 | XMS_ITS | Encounter Summary ---
Author Organization [facility] Address [address] [place] [address] Care Team Providers Care Cpr Ambulance Driver Name Role Phone Loretta Grove MD Primary Care Provider [phone] Loretta Grove MD Unavailable [phone] Loretta Grove MD Unavailable [phone] Terrance Gudino DPM Unavailable [phone] Yvonne Bailey MD Unavailable [phone] Loretta Grove MD Unavailable [phone] Beverley Leonard OD Unavailable Shirin Rendon MD Unavailable Loretta Grove MD Unavailable [phone] Junior Flores MD Unavailable Belinda Brunson CNP Primary Care Provider [phone] Belinda Brunson CNP Unavailable [phone] Encounter Details Date Type Department Care Team (Late st Contact Info) Description 07/01/2016 [facility] [id number] [place] [phone] Maria Alejandra Sung APRN CARE TRANSITION COORDINATOR [address] [place] [address] [address] [place] [address] Social History Tobacco Use Types Packs/Day Years Used Date Smoking Tobacco: Never Smokeless Tobacco: Never Alcohol Use Standard Drinks/Week Comments No 0 (1 standard drink = 0.6 oz pur e alcohol) Comments No Sex and Gender Information Value Date Recorded Sex Assigned at Female 03/19/2022 8:51 PM CDT Legal Sex Female 5:08 AM CASER SHOE PARTS Gender Identity Female 03/19/2022 8:51 PM CDT Sexual Orientation Not on file documented as of this encounter Plan of Treatment Upcoming Encounters Date Type Department Care Team (Late st Contact Info) Description 10/26/2025 9:30 AM CASER SHOE PARTS Office Visit [address] [address] Belinda Brunson CNP [address] [place] [address] documented as of this encounter Visit Diagnoses Not on filedocumented in this encounter Additional Health Concerns Infection Onset Date Last Indicated Resolved Time Rule Out C-difficile 04/08/2023 04/08/2023 023 3:47 PM CDT documented as of this encounter Care Teams Cpr Ambulance Driver Relationship Specialty [place] [address] [place] [address] PCP - General Family Practice 11/16/15 10/15/24 [place] [address] [place] [address] PCP - Assigned PCP 11/21/15 01/14/19 Belinda Brunson CNP [address] [place] [address] PCP - General Nurse Practitioner - Family 10/16/24 [place] [address] [place] [address] Assigned PCP 11/21/15 04/06/21 Terrance Gudino DPM [address] [facility] [address] [place] [address] Assigned Musculoskeletal Provider 09/03/20 10/05/20 [place] [address] [place] [address] Assigned PCP 04/07/21 04/16/21 [place] [address] [place] [address] Assigned PCP 04/17/21 09/08/22 Beverley Leonard OD [address] [place] [address] [place] [address] Assigned Surgical Provider 10/02/21 12/31/21 [place] [address] [place] [address] Assigned PCP 09/09/22 10/12/23 [place] [address] [place] [address] Assigned PCP 10/13/23 11/02/24 Junior [place] MD [address], [facility] [address] [place] [address] Assigned OBGYN Provider 10/27/23 Belinda Brunson, CARE TRANSITION COORDINATOR [address] [place] [address] Assigned PCP 11/03/24 documented as of this encounter
--- OUTSIDE RECORDS SUMMARY | 2025-02-21 11:25 | XMS_ITS | Encounter Summary ---
Author Organization [facility] Address [address] [place] [address] Care Team Providers Care Bias Binding Folder Name Role Phone Junior Flores MD Unavailable [phone] Belinda Brunson CNP Primary Care Provider [phone] Belinda Brunson CNP Unavailable [phone] Encounter Details Date Type Department Care Team (Latest Contact Info) Description 02/09/2025 Travel Social History Tobacco Use Types Packs/Day [...] than three times a week 10/12/2024 Attends Congregational Services Not on file 10/12 Active Member [...] Answer Date Recorded PHQ-2 Score 0 01/19/2025 [facility] of Occupat ional [facility] - Occupational Stress Questionnaire Answer Date [...] in an abandoned building, in an overnight halfway, or couch-surfing.) Yes 10/12/2024 Are you worried [...] PM CDT Legal Sex Female 5:08 AM WAREHOUSE SHIPPING ASSOCIATE Gender Identity Female 03/19/2022 8:51 PM CDT Sexual Orientation Not on file documented as of this encounter Plan of Treatment Upcoming Encounters Date Type Department Care Team (Late st Contact Info) Description 10/26/2025 9:30 AM WAREHOUSE SHIPPING ASSOCIATE Office Visit [address] [address] Belinda Brunson CNP [address] [place] [address] documented as of this encounter Visit Diagnoses Not on filedocumented in this encounter Additional Health Concerns Assessment Noted Time PHQ-9 Depression Total Score: 0 03/27/20 19 9:42 AM CDT documented as of this encounter Care Teams Bias Binding Folder Relationship Specialty Start Date End Date Belinda Brunson CNP [address] [place] [address] PCP - General Nurse Practitioner - Family 10/16/24 Junior Flores MD [address] [address] Assigned OBGYN Provider 10/27/23 Belinda Brunson CNP [address] [place] [address] 4[address] Assigned PCP 11/03/24 documented as of this encounter
--- OUTSIDE RECORDS SUMMARY | 2025-02-21 11:25 | XMS_ITS | Encounter Summary ---
Author Organization [facility] Address [address] [place] [address] Care Team Providers Care Shift Stacker Name Role Phone Junior Flores MD Unavailable + [phone] Belinda Brunson CNP Primary Care Provider [phone] Belinda Brunson CNP Unavailable [phone] Encounter Details Date Type Department Care Team (Latest Contact Info) Description 02/06/2025 Travel Social History Tobacco Use Types Packs/Day [...] than three times a week 10/12/2024 Attends Religion Services Not on file 10/12 Active Member [...] Answer Date Recorded PHQ-2 Score 0 01/19/2025 [facility] of Occupat ional [facility] - Occupational Stress Questionnaire Answer Date [...] in an abandoned building, in an overnight residential, or couch-surfing.) Yes 10/12/2024 Are you worried [...] PM CDT Legal Sex Female 5:08 AM INTERNATIONAL TRADE SPECIALIST Gender Identity Female 03/19/2022 8:51 PM CDT Sexual Orientation Not on file documented as of this encounter Plan of Treatment Upcoming Encounters Date Type Department Care Team (Late st Contact Info) Description 10/26/2025 9:30 AM INTERNATIONAL TRADE SPECIALIST Office Visit [address] [address] Belinda Brunson CNP [address] [place] [address] documented as of this encounter Visit Diagnoses Not on filedocumented in this encounter Additional Health Concerns Assessment Noted Time PHQ-9 Depression Total Score: 0 03/27/20 19 9:42 AM CDT documented as of this encounter Care Teams Shift Stacker Relationship Specialty Start Date End Date Belinda Brunson CNP [address] [place] [address] PCP - General Nurse Practitioner - Family 10/16/24 Junior [place] MD [address] [address] Assigned OBGYN Provider 10/27/23 Belinda Brunson CNP [address] [place] [address] 3927[address] Assigned PCP 11/03/24 documented as of this encounter
--- OUTSIDE RECORDS SUMMARY | 2025-02-21 11:25 | XMS_ITS | Encounter Summary ---
Author Organization [facility] Address [address] [place] [address] Care Team Providers Care Laboratory Coordinator Name Role Phone Junior Flores MD Unavailable [phone] Belinda Brunson CNP Primary Care Provider [phone] Belinda Brunson CNP Unavailable [phone] Encounter Details Date Type Department Care Team (Latest Contact Info) Description 02/13/2025 Travel Social History Tobacco Use Types Packs/Day [...] than three times a week 10/12/2024 Attends Jainism Services Not on file 10/12 Active Member [...] Answer Date Recorded PHQ-2 Score 0 01/19/2025 [facility] of Occupat ional [facility] - Occupational Stress Questionnaire Answer Date Recorded [...] in an abandoned building, in an overnight alf, or couch-surfing.) Yes 10/12/2024 Are you worried [...] PM CDT Legal Sex Female 5:08 AM COMMODITY MERCHANT Gender Identity Female 03/19/2022 8:51 PM CDT Sexual Orientation Not on file documented as of this encounter Plan of Treatment Upcoming Encounters Date Type Department Care Team (Late st Contact Info) Description 10/26/2025 9:30 AM COMMODITY MERCHANT Office Visit [address] [address] Belinda Brunson CNP [address] [place] [address] documented as of this encounter Visit Diagnoses Not on filedocumented in this encounter Additional Health Concerns Assessment Noted Time PHQ-9 Depression Total Score: 0 03/27/20 19 9:42 AM CDT documented as of this encounter Care Teams Laboratory Coordinator Relationship Specialty Start Date End Date Belinda Brunson CNP [address] [place] [address]85[address] PCP - General Nurse Practitioner - Family 10/16/24 Junior [place] MD [address] [address] Assigned OBGYN Provider 10/27/23 Belinda Brunson CNP [address] [place] [address]64[address] Assigned PCP 11/03/24 documented as of this encounter
--- OUTSIDE RECORDS SUMMARY | 2025-02-21 11:25 | XMS_ITS | Encounter Summary ---
Author Organization [facility] Address [address] [place] [address] Care Team Providers Care Dye Mixer Name Role Phone Junior Flores MD Unavailable [phone] Belinda Brunson CNP Primary Care Provider Belinda Brunson CNP Unavailable [phone] Reason for Visit * Reason Comments ED follow up Encounter Details Date Type Department Care Team (Late st Contact Info) Description 02/06/2025 3:00 PM CDT Office Visit [address] [address] Belinda Brunson CNP [address] [place] [address] Epigastric pain (Primary Dx); Thrush Social History Tobacco Use Types Packs/Day Years [...] than three times a week 10/12/2024 Attends Orthodox Services Not on file 10/12 Active Member [...] Answer Date Recorded PHQ-2 Score 0 01/19/2025 [facility] of Occupat ional Health - Occupational Stress [...] Answer Date Recorded Do you have housing? (Arpitain g is defined as stable permanent housing [...] PM CDT Legal Sex Female 5:08 AM REGIONAL AGRONOMIST Gender Identity Female 03/19/2022 8:51 PM CDT [...] Mass Index 25.42 02/06/2025 2:41 PM CDT documented in this encounter Progress Notes * Belinda Brunson, LALO - 02/06/2025 3:00 PM CDT Assessment & Plan Epigastric pain - omeprazole (PRILOSEC) [address] capsule Dispense: 21 capsule; Refill: 0 - Helicobacter pylori Antigen Stool Thrush - nystatin (MYCOSTATIN) 343111 UNIT/ML suspension Dispense: 200 mL; Refill: 0 MED REC REQUIRED Post Medication Reconciliation Status: discharge medications reconciled and changed, per note/orders See Patient Instructions Subjective Elizabeth is a 69 year old, presenting for the following health issues: ED follow up 01/19/2025 12:48 PM Additional Questions Roomed by Kandace TORRES Accompanied by Self HPI ED/UC Followup: Facility: [facility] Date of visit: 01/28/25 Reason for visit: abdominal,stomach and chest pain Current Status: feeling better. Having lots of mucous in stools. Currently on 20 mg omeprazole OTC. Maybe thrush in mouth. Tongue is sore. Constitutional, HEENT, cardiovascular, pulmonary, GI, , musculoskeletal, neuro, skin, endocrine and psych systems are negative, except as otherwise noted. Objective BP 124/80 Pulse 67 Temp 98.8 ??F (37.1 ??C) (Tympanic) Resp 16 Ht 1.676 m (5' 6) Wt 71.4kg (157 lb 8 oz) SpO2 99% BMI 25.42 kg/m?? Body mass index is 25.42 kg/m??. Physical Exam GENERAL: alert and no distress NECK: no adenopathy, no asymmetry, masses, or scars RESP: lungs clear to auscultation - no rales, rhonchi or wheezes CV: regular rate and rhythm, normal S1 S2, no S3 or S4, no murmur, click or rub, no peripheral edema ABDOMEN: soft, nontender, no hepatosplenomegaly, no masses and bowel sounds normal MS: no gross musculoskeletal defects noted, no edema Signed Electronically by: Belinda Brunson CNP documented in this encounter Plan of Treatment Upcoming Encounters Date Type Department Care Team (Late st Contact Info) Description 10/26/2025 9:30 AM REGIONAL AGRONOMIST Office Visit [address] [place] [phone] Belinda Brunson CNP [address] [place] [address] documented as of this encounter Procedures Procedure Name Priority Date/Time Associated Diagnosis Comments HELICOBACTER PYLORI ANTIGEN STOOL Routine 02/09/2025 8:15 AM CDT Epigastric pain documented in this encounter Results * Helicobacter pylori Antigen Stool (02/09/2025 8:15 [...] LAB - STOOLS ORDERABLES F inal Result [facility] CORE/PROT/ENDO [facility] Special[facility] Core/Prot/Endo [address] [facility], Room [address] SPECIALTY LABS Specialty Lab [address] [facility], Room [address] documented in this encounter Visit Diagnoses Diagnosis Epigastric pain- Primary Abdominal pain, epigastric Thrush Candidiasis of mouth documented in this encounter Additional Health Concerns Assessment Noted Time PHQ-9 Depression Total Score: 0 03/27/20 19 9:42 AM CDT documented as of this encounter Care Teams Dye Mixer Relationship Specialty Start Date End Date Belinda Brunson CNP [address] [place] [address] PCP - General Nurse Practitioner - Family 10/16/24 Junior [place] MD [address] [address] Assigned OBGYN Provider 10/27/23 Belinda Brunson CNP [address] [place] [address] Assigned PCP 11/03/24 documented as of this encounter
--- OUTSIDE RECORDS SUMMARY | 2025-02-21 11:25 | XMS_ITS | Encounter Summary ---
Author Organization [place] Address [address] [place] [address] Care Team Providers Care Citrus Fruit Colorer Name Role Phone Junior Flores MD Unavailable [phone] Belinda Brunson CNP Primary Care Provider Belinda Brunson CNP Unavailable Encounter Details Date Type Department Care Team (Late st Contact Info) Description 01/29/2025 MyC Medical Advice [address] [phone] Belinda Brunson CNP [address] [place] [address] Epigastric pain (Primary Dx) Social History Tobacco Use Types [...] than three times a week 10/12/2024 Attends [employer] Services Not on file 10/12 Active Member [...] Answer Date Recorded PHQ-2 Score 0 01/19/2025 [facility] - Occupational [...] in an abandoned building, in an overnight intermediate, or couch-surfing.) Yes 10/12/2024 Are you worried [...] PM CDT Legal Sex Female 5:08 AM CLAMMER Gender Identity Female 03/19/2022 8:51 PM CDT Sexual Orientation Not on file documented as of this encounter Miscellaneous Notes * Telephone Encounter - Kandace Ayala RN - 01/29/2025 8:52 AM CDT ELYSE 01/19/25 Attempt # 1 Called # [phone] Left a non detailed VM to call back at and ask for any available Triage Nurse. Mychart sent Kandace Ayala RN on 01/29/2025 at 8:53 AM [facility] * Addendum Note - Belinda Brunson CNP - 01/29/2025 6:30 AM CDTAddended by: BELINDA BRUNSON on: 02/03/2025 08:20 AM Modules accepted: Orders documented in this encounter Plan of Treatment Upcoming Encounters Date Type Department Care Team (Late st Contact Info) Description 10/26/2025 9:30 AM CLAMMER Office Visit [address] [phone] Belinda Brunson CNP [address] [place] [address] documented as of this encounter Results * Helicobacter pylori Antigen [...] ORDERABLES F inal Result [facility] C[facility]/PROT/ENDO Specialty Core/Prot/Endo [facility], Room [address] SPECIALTY LABS Specialty Lab [facility], Room [address] [phone], [place] documented in this encounter Visit Diagnoses Diagnosis Epigastric pain- Primary Abdominal pain, epigastric documented in this encounter Additional Health Concerns Assessment Noted Time PHQ-9 Depression Total Score: 0 03/27/20 19 9:42 AM CDT documented as of this encounter Care Teams Citrus Fruit Colorer Relationship Specialty Start Date End Date Belinda Brunson CNP [address] [place] [address] PCP - General Nurse Practitioner - Family 10/16/24 Junior Flores MD [address], [address] [address] Assigned OBGYN Provider 10/27/23 Belinda Brunson CNP [address] [place] [address] Assigned PCP 11/03/24 documented as of this encounter
--- OUTSIDE RECORDS SUMMARY | 2025-02-21 11:25 | XMS_ITS | Encounter Summary ---
Author Organization [place] Address [address] [place] [address] Care Team Providers Care Drum Barker Operator Name Role Phone Junior Flores MD Unavailable + [phone] Belinda Brunson CNP Primary Care Provider [phone] Belinda Brunson CNP Unavailable [phone] Encounter Details Date Type Department Care Team (Late st Contact Info) Description 02/13/2025 8:15 AM CDT Lab [facility] [address] [place] [phone] Mixed hyperlipidemia Social History Tobacco Use Types Packs/Day Years [...] than three times a week 10/12/2024 Attends [employer] Services Not on file 10/12 Active Member [...] Answer Date Recorded PHQ-2 Score 0 01/19/2025 [facility] - Occupational [...] PM CDT Legal Sex Female 5:08 AM ASSOCIATE PROFESSOR OF PATHOLOGY Gender Identity Female 03/19/2022 8:51 PM CDT Sexual Orientation Not on file documented as of this encounter Plan of Treatment Upcoming Encounters Date Type Department Care Team (Late st Contact Info) Description 10/26/2025 9:30 AM ASSOCIATE PROFESSOR OF PATHOLOGY Office Visit [address] [phone] Belinda Brunson, [facility] [address] [place] [phone] documented as of this encounter Procedures Procedure Name Priority Date/Time Associated Diagnosis Comments LIPID REFLEX TO DIRECT LDL PANEL Routine 02/13/2025 8:09 AM CDT Mixed hyperlipidemia documented in this encounter Results * (ABNORMAL) Lipid panel reflex to [...] 219 mg/dL Very High: >= 220 mg/dL Belinda Brunson CNP LAB - BLOOD ORDERABLES Fi nal Result [facility] [place] [facility] [address] [facility], Room [address] [phone] documented in this encounter Visit Diagnoses Diagnosis Mixed hyperlipidemia documented in this encounter Additional Health Concerns Assessment Noted Time PHQ-9 Depression Total Score: 0 03/27/20 19 9:42 AM CDT documented as of this encounter Care Teams Drum Barker Operator Relationship Specialty Start Date End Date Belinda Brunson CNP [address] [place] [phone] PCP - General Nurse Practitioner - Family 10/16/24 Junior Flores MD [address], [address] [address] Assigned OBGYN Provider 10/27/23 Belinda Brunson CNP [address] [place] [address] Assigned PCP 11/03/24 documented as of this encounter
--- OUTSIDE RECORDS SUMMARY | 2025-02-21 11:25 | XMS_ITS | Encounter Summary ---
Author Organization [place] Address [address] [place] [address] Care Team Providers Care Bus Analyst Name Role Phone Junior Flores MD Unavailable + [phone] Belinda Brunson CNP Primary Care Provider [phone] Belinda Brunson CNP Unavailable [phone] Reason for Referral * Diagnostic Imaging Ultrasound (Routine) - Pending Review Specialty Diagnoses / Procedures Referred By Hali burns Referred To Contact Radiology. Diagnoses Epigastric pain Procedures US Abdomen Limited Belinda Brunson CNP [address] [place] [address] Phone: tel: fax: Referral ID Status Reason Start Date Expiration Date V isits Requested Visits Authorized [id number] Pending Review 01/19/2025 01/19/2026 1 1 Reason for Visit * Reason Comments Abdominal Pain Encounter Details Date Type Department Care Team (Late st Contact Info) Description 01/19/2025 1:00 PM CDT Office Visit [address] [phone] Belinda Brunson CNP [address] [place] [address] Epigastric pain (Primary Dx); Mixed hyperlipidemia; Chest [...] than three times a week 10/12/2024 Attends Orthodoxy Services Not on file 10/12 Active Member [...] Answer Date Recorded PHQ-2 Score 0 01/19/2025 [facility] - [...] in an abandoned building, in an overnight fci, or couch-surfing.) Yes 10/12/2024 Are you worried [...] PM CDT Legal Sex Female 5:08 AM SPANISHER Gender Identity Female 03/19/2022 8:51 PM CDT [...] Body Mass Index 25.86 10/17/2024 10:45 AM SPANISHER documented in this encounter Progress Notes * Belinda Brunsonth, SEED TRUCKER - 01/19/2025 1:00 PM CDT Assessment & [...] st Contact Info) Description 10/26/2025 9:30 AM SPANISHER Office Visit [address] [place] [phone] Belinda Brunson CNP [address] [place] [address] Scheduled Orders Name Type Priority Associated Diagnoses Orde r Schedule US Abdomen Limited Imaging Routine Epigastric pain [...] High: >= 220 mg/dL us Belinda Brunson SEED TRUCKER LAB - BLOOD ORDERABLES Fi nal Result [facility] Lab 500 [facility], Room [address] [place] [address], [facility] * (ABNORMAL) Comprehensive metabolic panel (BMP + [...] 0.2 <=1.2 mg/dL 01/20/2025 3:08 PM CDT [facility] Blood BLOOD SPECIMEN / Unknown Venipuncture / Unknown 01/19/2025 1:37 PM CDT 01/19/2025 1:37 PM CDT Belinda Brunson CNP LAB - BLOOD ORDERABLES Fi nal Result Performing Organization Address City/[facility]/ZIP Co de Phone Number [facility] [address] * Lipase (01/19/2025 1:37 PM CDT) Lipase 45 13 - 60 U/L 01/20/2025 3:08 PM CDT [facility] Blood BLOOD SPECIMEN / Unknown Venipuncture / Unknown 01/19/2025 1:37 PM CDT 01/19/2025 1:37 PM CDT Belinda Brunson CNP LAB - BLOOD ORDERABLES Fi nal Result Performing Organization Address City/[facility] de Phone Number [facility] [address] documented in this encounter Visit Diagnoses Diagnosis Epigastric pain- Primary Abdominal pain, epigastric Mixed hyperlipidemia Chest wall pain Painful respiration documented in this encounter Additional Health Concerns Assessment Noted Time PHQ-9 Depression Total Score: 0 03/27/20 19 9:42 AM CDT documented as of this encounter Care Teams Bus Analyst Relationship Specialty Start Date End Date Belinda Brunson CNP [address] [place] [address] PCP - General Nurse Practitioner - Family 10/16/24 Junior Flores MD [address] [address] Assigned OBGYN Provider 10/27/23 Belinda Brunson CNP [address] [place] [address] Assigned PCP 11/03/24 documented as of this encounter
[2025-02-21 11:27] VITALS: BP 150/88; PULSE 65; RESP 14; TEMP 36.7; O2SAT 98; BMI 25.5
--- NOTE | 2025-02-21 11:48 | CRLHL7_ITS ---
For Patients: As a result of the Century Cures Act, medical imaging exams and procedure reports are released immediately into your electronic medical record. You may view this report before your referring provider. If you have questions, please contact your health care provider. INDICATION: Severe left-sided abdominal pain TECHNIQUE: CT abdomen and pelvis without contrast. No contrast was given due to allergy COMPARISON: CT abdomen and pelvis 10/04/2023 FINDINGS: The visualized portions of the lung bases are clear. Evaluation of the abdominal viscera is limited due to lack of IV contrast, however the liver, spleen, pancreas and adrenal glands are unremarkable. The gallbladder is nondistended. The kidneys are negative for hydronephrosis or nephrolithiasis. The bladder is minimally distended and unremarkable. There are no dilated loops of small bowel to suggest obstruction.The appendix is normal.There are few scattered colonic diverticula without adjacent inflammatory change. Question mild wall thickening of the descending colon which may be due to underdistention versus mild colitis. No significant surrounding inflammatory change. The visualized osseous structures are unremarkable. IMPRESSION: Question mild wall thickening of the descending colon which may be due to underdistention versus mild colitis. Please note that all CT scans at this facility use dose modulation, iterative reconstruction, and/or weight-based dosing when appropriate to reduce radiation dose to as low as reasonably achievable. Dictated by Cherie Perales MD @ 02/21/2025 12:50:45 PM (Electronically Signed)
--- NOTE | 2025-02-21 11:50 | ED_ITS ---
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 She states that the pain is constant at about 4/10 in severity but there are times and it becomes very severe. She was seen 2 or 3 weeks ago here had ultrasound of her right upper quadrant as her pain at that time was more upper epigastric and right upper quadrant. Ultrasound showed a normal gallbladder except for a 3 mm polyp that was not worrisome. Her common bile duct was borderline enlarged. The patient has subsequently had a visit with [facility] and has been taking Prilosec without any relief. She is not taking any other medicines for pain. There is a plan to have an MRI done but this has not yet occurred. She arrives here with normal vital signs. She states that her stools seem altered in that the stool is floating and seems to be fatty and sometimes greenish colored. She denies having any dysuria symptoms. Related Data Home Medications ?Medication ?Instructions ?Recorded ?Confirmed levothyroxine 100 mcg tablet 100 mcg PO DAILY 10/04/23 02/21/25 (Euthyrox) metoprolol succinate 25 mg 25 mg PO DAILY 10/04/23 02/21/25 tablet,extended release 24 hr lisinopril 5 mg tablet 5 mg PO DAILY 01/28/25 02/21/25 Previous Rx's ?Medication ?Instructions ?Recorded pantoprazole 40 mg tablet,delayed 40 mg PO DAILY #20 tabs 02/21/25 release (Protonix) Allergies Allergy/AdvReac Type Severity Reaction Status Date / Time shellfish derived Allergy Unknown Verified 02/21/25 11:32 Iodinated Contrast Media Allergy Verified 02/21/25 11:32 Review of Systems Status of ROS Reports: 10 or more systems reviewed and unremarkable except as noted in History and below Narrative Constitutional: No fevers, no weight gain or loss. Eyes: No discharge. No vision changes. HENT: No congestion, no sore throat, no ear pain. Cardiovascular: No chest pain, no palpitations. Respiratory: No shortness of breath, no wheezes, no cough. Gastrointestinal: No vomiting, no diarrhea. Upper epigastric in left-sided abdominal pain. Genitourinary: No dysuria, no hematuria. Musculoskeletal: Normal range of motion. Skin: No rashes, no pruritis. Neurological: No dizziness, weakness, sensory change, speech change. Endo/Heme/Allergies: No bruising or bleeding. No polydipsia. Pysch: no suicidality, no anxiety, no insomnia. All other systems reviewed and are negative. [facility] Social History Smoking Status: Never smoker How often do you have a drink containing alcohol: monthly or less AUDIT-C Alcohol total score: 1 Non-prescribed substance use: denies use Exam Narrative: Exam Narrative: Constitutional: Well-developed, well-nourished, no acute distress. HEENT: Normocephalic, atraumatic. Neck: Normal range of motion. Nontender. Supple. Heart: Regular. No murmurs. Normal rate. Intact distal pulses. Lungs: Clear to auscultation. No chest discomfort. No wheezes, rhonchi, or rales. Abdomen: Normal bowel sounds. Tenderness in the upper epigastric region and a bit into the left abdomen. No rebound tenderness. Genitalia: Deferred. Back: No midline tenderness. Normal range of motion. Extremities: Normal range of motion. No injury. Skin: Intact. No rash. Warm. No erythema or pallor. Neurologic: No altered sensation. No weakness. Alert and oriented. Psychiatric: No suicidality. No anxiety or depression. No insomnia. Nursing notes and vitals signs are reviewed. Const: Vital Signs, click to edit/add: Vital Signs - 24 hr 02/21/25 11:27 Temperature 98.1 F Pulse Rate [Pulse Oximeter] 65 Respiratory Rate 14 Blood Pressure [Ri ght Upper Arm] 150/88 H Pulse Oximetry 98 Oxygen Delivery Me thod Room Air Course Vital Signs Vital signs: Initial Vital Signs Temperature 98.1 F 02/21/25 11:27 Temperature Source Temporal Artery Scan 02/21/25 11:27 Pulse Rate 65 02/21/25 11:27 Respiratory Rate 14 02/21/25 11:27 Blood Pressure 150/88 H 02/21/25 11:27 Blood Pressure Mean 108 H 02/21/25 11:27 Blood Pressure Position Sitting 02/21/25 11:27 Pulse Oximetry 98 02/21/25 11:27 Oxygen Delivery Method Room Air 02/21/25 11:27 Vital Signs Temperature 98.1 F 02/21/25 11:27 Pulse Rate 65 02/21/25 11:27 Respiratory Rate 14 02/21/25 11:27 Blood Pressure 150/88 H 02/21/25 11:27 Pulse Oximetry 98 02/21/25 11:27 Oxygen Delivery Method Room Air 02/21/25 11:27 Temperature 98.1 F 02/21/25 11:27 Pulse Rate 65 02/21/25 11:27 Respiratory Rate 14 02/21/25 11:27 Blood Pressure 150/88 H 02/21/25 11:27 Pulse Oximetry 98 02/21/25 11:27 Oxygen Delivery Method Room Air 02/21/25 11:27 MDM - Abdominal Pain MDM Narrative Medical decision making narrative: This patient comes in reporting abdominal pain as described above. She does arrive with normal vital signs and has had labs and ultrasound imaging done. She has also been to [facility] and apparently an MRI scheduled in the future. Her exam is reassuring but given the ongoing pain that is in adequately managed I did order CT scan and labs and these all returned with normal findings. This is reassuring to the patient but she continues to have symptoms of course. She had been taking Prilosec but did not tolerate this medicine very well. She states that she took Protonix without problem in the past so I prescribed this for her and instructed to take 40 mg daily or even 80 mg daily if needed. She also received a prescription for some tablets of tramadol for additional pain relief if needed. Lab Data Labs: Lab Results 02/21/25 Range/Units 12:00 WBC 6.35 (4.50-11.00) K/uL RBC 4.42 (4.00-5.20) m/uL Hgb 13.7 (12.0-16.0) gm/dL Hct 40.4 (33.0-51.0) % MCV 91 (80-100) fL MCH 31 (26-34) pg MCHC 34 (32-36) gm/dL RDW Coeff of Tamy 12.1 (11.5-15.5) % Plt Count 302 (140-440) K/uL Neut % (Auto) 62.8 (42.0-72.0) % Lymph % (Auto) 26.8 (20-44) % Cannon % (Auto) 6.6 (0.0-11.0) % Eos % (Auto) 2.5 (0.0-7.0) % Baso % (Auto) 1.1 (0.0-3.0) % Neut # (Auto) 3.99 (1.7-7.0) K/uL Lymph # (Auto) 1.70 (0.90-2.90) K/uL Cannon # (Auto) 0.40 (0.00-0.90) K/UL Eos # (Auto) 0.16 (0.00-0.50) K/uL Baso # (Auto) 0.07 (0.00-0.30) K/uL Abs Immat Gran (auto) 0.01 (0.00-0.30) K/uL Imm/Tot Granulo (auto) 0.2 % Sodium 137 (135-149) mmol/L Potassium 4.3 (3.6-5.1) mmol/L Chloride 101 (96-114) mmol/L Carbon Dioxide 25 (20-32) mmol/L Anion Gap 11 (7-15) mEq/L BUN 9 (7-30) mg/dL Creatinine 0.9 (0.5-1.5) mg/dL Estimated Creat Clear 51.11 Estimated GFR 70 ml/min Glucose 98 (60-115) mg/dL Calcium 9.5 (8.4-10.6) mg/dL Total Bilirubin 0.6 (0.1-1.5) mg/dL Direct Bilirubin 0.3 (0.0-0.5) mg/dL AST 28 (12-35) U/L ALT 20 (4-35) U/L Alkaline Phosphatase 68 (40-150) U/L C-Reactive Protein < 0.5 L (0.5-1.0) mg/dL Total Protein 7.5 (6.0-8.3) g/dL Albumin 4.6 (3.3-5.0) g/dL Lipase 165 (23-300) U/L Imaging Data CT scan - abdomen: Radiologist's impression: Question mild wall thickening of the descending colon which may be due to underdistention versus mild colitis. Discharge Plan Discharge Clinical Impression: Abdominal pain Patient Disposition: Home, Self-Care Condition: Stable Additional Instructions: Take medications as prescribed. Follow up with [facility] or primary physician for ongoing management. Return if worsening. Prescriptions: New pantoprazole [Protonix] 40 mg tablet,delayed release (DR/EC) 40 mg PO DAILY Qty: 20 2RF No Action levothyroxine [Euthyrox] 100 mcg tablet 100 mcg PO DAILY metoprolol succinate 25 mg tablet extended release 24 hr 25 mg PO DAILY lisinopril 5 mg tablet 5 mg PO DAILY Follow Up/Referrals: Provider,Not a Local [Primary Care Provider] - Stand Alone Forms: [employer] Info Instructions
--- OUTSIDE RECORDS SUMMARY | 2025-02-21 12:06 | XMS_ITS | Encounter Summary ---
Author Organization [place] Address [address] [place] [address] Care Team Providers Care Range Technician Name Role Phone Loretta Grove MD Primary Care Provider [phone] Loretta Grove MD Unavailable [phone] Loretta Grove MD Unavailable [phone] Terrance Gudino DPM Unavailable [phone] Yvonne Bailey MD Unavailable [phone] Loretta Grove MD Unavailable [phone] Beverley Leonard OD Unavailable [phone] Shirin Rendon MD Unavailable Loretta Grove MD Unavailable [phone] Junior Flores MD Unavailable Belinda Brunson CNP Primary Care Provider [phone] Belinda Brunson CNP Unavailable [phone] Encounter Details Date Type Department Care Team (Latest Contact Info) Description 10/16/2016 [facility] [address] [place] [phone] Lou Christianson RN Acquired hypothyroidism (Primary Dx) Social History Tobacco Use Types Packs/Day Years Used Date Smoking Tobacco: Never Smokeless Tobacco: Never Alcohol Use Standard Drinks/Week Comments No 0 (1 standard drink = 0.6 oz pur e alcohol) Comments No Sex and Gender Information Value Date Recorded Sex Assigned at Female 03/19/2022 8:51 PM CDT Legal Sex Female 5:08 AM ASSOCIATE DIRECTOR OF DEVELOPMENT Gender Identity Female 03/19/2022 8:51 PM CDT Sexual Orientation Not on file documented as of this encounter Plan of Treatment Upcoming Encounters Date Type Department Care Team (Late st Contact Info) Description 10/26/2025 9:30 AM ASSOCIATE DIRECTOR OF DEVELOPMENT Office Visit [address] [phone] Belinda Brunson, LALO [address] [place] [address] documented as of this encounter Visit Diagnoses Diagnosis Acquired hypothyroidism- Primary Unspecified hypothyroidism documented in this encounter Additional Health Concerns Infection Onset Date Last Indicated Resolved Time Rule Out C-difficile 04/08/2023 04/08/2023 023 3:47 PM CDT documented as of this encounter Care Teams Range Technician Relationship Specialty [place] [address] [place] [address] PCP - General Family Practice 11/16/15 10/15/24 [place] [address] [place] [address] PCP - Assigned PCP 11/21/15 01/14/19 Belinda Brunson CNP [address] [place] [address] PCP - General Nurse Practitioner - Family 10/16/24 [place] [address] [place] [address] Assigned PCP 11/21/15 04/06/21 Terrance Gudino DPM [address] [facility] [address] [place] [address] Assigned Musculoskeletal Provider 09/03/20 10/05/20 Yvonne Bailey MD [address] [facility] [place] [address] Assigned PCP 04/07/21 04/16/21 [place] [address] [place] [address] Assigned PCP 04/17/21 09/08/22 Bever[place] Leonard OD [address] [facility] [address] Assigned Surgical Provider 10/02/21 12/31/21 [place] [address] [place] [address] Assigned PCP 09/09/22 10/12/23 [place] [address] [place] [address] Assigned PCP 10/13/23 11/02/24 Junior Flores MD [address] [facility] [address] [place] [address] Assigned OBGYN Provider 10/27/23 Belinda Brunson, [employer] CLE[employer] [address] [place] [address] Assigned PCP 11/03/24 documented as of this encounter
--- OUTSIDE RECORDS SUMMARY | 2025-02-21 12:06 | XMS_ITS | Encounter Summary ---
Author Organization [facility] Address [address] [place] [address] Care Team Providers Care Hearse Driver Name Role Phone Loretta Grove MD Primary Care Provider [phone] Loretta Grove MD Unavailable [phone] Loretta Grove MD Unavailable [phone] Terrance Gudino DPM Unavailable [phone] Yvonne Bailey MD Unavailable [phone] Loretta Grove MD Unavailable [phone] Beverley Leonard OD Unavailable Shirin Rendon MD Unavailable Loretta Grove MD Unavailable [phone] Junior Flores MD Unavailable Belinda Brunson CNP Primary Care Provider [phone] Belinda Brunson CNP Unavailable [phone] Encounter Details Date Type Department Care Team (Late st Contact Info) Description 03/16/2016 [facility] [address] [place] [address] Maria Alejandra Sung APRN METAL TEMPLATE MAKER [address] [place] [address] [address] [place] [address] Social History Tobacco Use Types Packs/Day Years Used Date Smoking Tobacco: Never Smokeless Tobacco: Never Alcohol Use Standard Drinks/Week Comments No 0 (1 standard drink = 0.6 oz pur e alcohol) Comments No Sex and Gender Information Value Date Recorded Sex Assigned at Female 03/19/2022 8:51 PM CDT Legal Sex Female 5:08 AM PUBLIC ADDRESS SYSTEM INSTALLER Gender Identity Female 03/19/2022 8:51 PM CDT Sexual Orientation Not on file documented as of this encounter Plan of Treatment Upcoming Encounters Date Type Department Care Team (Late st Contact Info) Description 10/26/2025 9:30 AM PUBLIC ADDRESS SYSTEM INSTALLER Office Visit [address] [address] Belinda Brunson CNP [address] [place] [address] documented as of this encounter Visit Diagnoses Not on filedocumented in this encounter Additional Health Concerns Infection Onset Date Last Indicated Resolved Time Rule Out C-difficile 04/08/2023 04/08/2023 023 3:47 PM CDT documented as of this encounter Care Teams Hearse Driver Relationship Specialty [place] [address] [place] [address] PCP - General Family Practice 11/16/15 10/15/24 [place] [address] [place] [address] PCP - Assigned PCP 11/21/15 01/14/19 Belinda Brunson CNP [address] [place] [address] PCP - General Nurse Practitioner - Family 10/16/24 [place] [address] [place] [address] Assigned PCP 11/21/15 04/06/21 Terrance Gudino DPM [address] [facility] [address] [place] [address] Assigned Musculoskeletal Provider 09/03/20 10/05/20 [place] [address] [place] [address] Assigned PCP 04/07/21 04/16/21 [place] [address] [place] [address] Assigned PCP 04/17/21 09/08/22 Beverley Leonard OD [address] [place] [address] [place] [address] Assigned Surgical Provider 10/02/21 12/31/21 [place] [address] [place] [address] Assigned PCP 09/09/22 10/12/23 [place] [address] [place] [address] Assigned PCP 10/13/23 11/02/24 Junior Flores MD [address] [facility] [address] [place] [address] Assigned OBGYN Provider 10/27/23 Belinda Brunson, METAL TEMPLATE MAKER [address] [place] [address] Assigned PCP 11/03/24 documented as of this encounter
--- OUTSIDE RECORDS SUMMARY | 2025-02-21 12:06 | XMS_ITS | Encounter Summary ---
Author Organization [facility] Address [address] [place] [address] Care Team Providers Care Mill Order Scheduler Name Role Phone Loretta Grove MD Primary Care Provider Shirin Rendon MD Unavailable Loretta Grove MD Unavailable [phone] Junior Flores MD Unavailable [phone] Belinda Brunson CNP Primary Care Provider Belinda Brunson CNP Unavailable [phone] Reason for Visit * Reason Onset Date Comments MyChart Communication 04/05/2023 Encounter Details Date Type Department Care Team (Late st Contact Info) Description 04/05/2023 [facility] [address] [place] [address] [place] [address] [place] [address] MyChart Communication Social History Tobacco [...] often do you attend chur ch or adventist services? More than 4 times per year [...] Answer Date Recorded PHQ-2 Score 0 08/29/2022 [facility] - Occupational Stress [...] place to sleep or slept in a chcf (including now)? No 08/27/2022 Comments No Sex and Gender Information Value Date Recorded Sex Assigned at Female 03/19/2022 8:51 PM CDT Legal Sex Female 5:08 AM DETHISTLER OPERATOR Gender Identity Female 03/19/2022 8:51 PM [...] diet She will come up today to pick up attendant test. As she took the imodium when [...] st Contact Info) Description 10/26/2025 9:30 AM DETHISTLER OPERATOR Office Visit [address] [address] Belinda Brunson, [address] [address] documented as of this encounter Results * [...] performed by multiplexed, qualitative PCR using the EachNet Enteric Pathogens Nucleic Acid Test. Results should [...] ORDER RONY Final Result [facility] Inf. Diseases Diag. Lab [address] [facility], [address] [place] [address], [facility] [phone] * C. difficile Toxin B PCR with reflex to C. difficile Antigen and Toxins A/B EIA (04/08/2023 10:30 AM CDT) [facility] C Difficile Toxin B by PCR Negative [...] LABORATORY - 04/08/2023 3:47 PM CDT The Gigi Hillid Xpert C. difficile Assay, performed on the Corduro GeneXExplara Instrument Systems, is a qualitative in vitro [...] ORDER RONY Final Result Performing Organization Address City/[facility] Co de Phone Number [facility] Inf. Diseases Diag. Lab [address] [facility], Room [address] [address], [facility] [phone] * Ova and Parasite Exam Routine (04/08/2023 10:30 AM CDT) [facility] OVA AND PARASITE EXAM Negative Negative ARNALDO [...] ORDER RONY Final Result Performing Organization Address City/[facility]/ZIP Co de Phone Number [facility] Inf. Diseases Diag. Lab [address] [facility], [address] [address], [facility] [phone] documented in this encounter Visit Diagnoses Diagnosis Diarrhea, unspecified type- Primary documented in this encounter Additional Health Concerns Infection Onset Date Last Indicated Resolved Time Rule Out C-difficile 04/08/2023 04/08/2023 023 3:47 PM CDT Assessment Noted Time PHQ-9 Depression Total Score: 0 03/27/20 19 9:42 AM CDT documented as of this encounter Care Teams Mill Order Scheduler Relationship Specialty [place] [address] [place] [address] PCP - General Family Practice 11/16/15 10/15/24 Belinda Brunson CNP [address] [place] [address] PCP - General Nurse Practitioner - Family 10/16/24 [place] [address] [place] [address] Assigned PCP 09/09/22 10/12/23 [place] [address] [place] [address] Assigned PCP 10/13/23 11/02/24 Junior Flores MD [address] [facility], [address] [address] Assigned OBGYN Provider 10/27/23 Belinda Brunson CNP [address] [place] [address] Assigned PCP 11/03/24 documented as of this encounter
--- OUTSIDE RECORDS SUMMARY | 2025-02-21 12:06 | XMS_ITS | Encounter Summary ---
Author Organization [facility] Address [address] [place] [address] Care Team Providers Care Commercial Green Building Designer Name Role Phone Loretta Grove MD Primary Care Provider [phone] Loretta Grove MD Unavailable [phone] Beverley Leonard OD Unavailable Shirin Rendon MD Unavailable Loretta Grove MD Unavailable [phone] Junior Flores MD Unavailable Belinda Brunson CNP Primary Care Provider [phone] Belinda Brunson CNP Unavailable [phone] Encounter Details Date Type Department Care Team (Late st Contact Info) Description 10/21/2021 [facility] Medical Advice [facility] [address] [place] [address] Magdalena Burger Social History Tobacco [...] PM CDT Legal Sex Female 5:08 AM BUSINESS PROCESS COORDINATOR Gender Identity Female 03/19/2022 8:51 PM CDT Sexual Orientation Not on file COVID-19 Exposure Response Date Recorded In the last month, have you been in contact with someone who was confirmed or suspected to have Coronavirus / COVID-19? No / Unsure 10/22/2021 6:30 AM BUSINESS PROCESS COORDINATOR documented as of this encounter Plan of Treatment Upcoming Encounters Date Type Department Care Team (Late st Contact Info) Description 10/26/2025 9:30 AM BUSINESS PROCESS COORDINATOR Office Visit [address] [phone] Belinda Brunson CNP [address] [place] [address] documented as of this encounter Visit Diagnoses Not on filedocumented in this encounter Additional Health Concerns Infection Onset Date Last Indicated Resolved Time Rule Out C-difficile 04/08/2023 04/08/2023 023 3:47 PM CDT Assessment Noted Time PHQ-9 Depression Total Score: 0 03/27/20 19 9:42 AM CDT documented as of this encounter Care Teams Commercial Green Building Designer Relationship Specialty [place] [address] [place] [address] PCP - General Family Practice 11/16/15 10/15/24 Belinda Brunson CNP [address] [place] [address] PCP - General Nurse Practitioner - Family 10/16/24 [place] [address] [place] [address] Assigned PCP 04/17/21 09/08/22 Beverley Leonard OD [address] [facility] [place] [address] Assigned Surgical Provider 10/02/21 12/31/21 [place] [address] [place] [address] Assigned PCP 09/09/22 10/12/23 [place] [address] [place] [address] Assigned PCP 10/13/23 11/02/24 Junior Flores MD [address] [facility], [address] [address] Assigned OBGYN Provider 10/27/23 Belinda Brunson, CARROT TIER [address] [place], [place] 97[address] Assigned PCP 11/03/24 documented as of this encounter
--- OUTSIDE RECORDS SUMMARY | 2025-02-21 12:06 | XMS_ITS | Encounter Summary ---
Author Organization [facility] Address [address] [place] [address] Care Team Providers Care Embroidery Operator Name Role Phone Loretta Grove MD Primary Care Provider [phone] Shirin Rendon MD Unavailable Loretta Grove MD Unavailable [phone] Junior Flores MD Unavailable Belinda Brunson CNP Primary Care Provider [phone] Belinda Brunson CNP Unavailable [phone] Encounter Details Date Type Department Care Team (Late st Contact Info) Description 10/01/2023 [facility] Medical Advice [facility] [address] [place] [phone] Louise Pat Social History Tobacco Use Types [...] often do you attend chur ch or christianity services? More than 4 times per year 10/02/2023 Do you belong to any clubs o r organizations such as pentecostalism groups, unions, fraternal or athletic groups, or [...] Answer Date Recorded PHQ-2 Score 0 10/02/2023 [facility] Occup[facility] ional Health - Occupational Stress [...] [facility], or couch-surfing.) Yes 10/02/2023 Are you worried [...] PM CDT Legal Sex Female 5:08 AM DIRECTOR OF SPECIAL SERVICES Gender Identity Female 03/19/2022 8:51 PM CDT Sexual Orientation Not on file documented as of this encounter Plan of Treatment Upcoming Encounters Date Type Department Care Team (Late st Contact Info) Description 10/26/2025 9:30 AM DIRECTOR OF SPECIAL SERVICES Office Visit [address] [address] Belinda Brunson, [address] [address] documented as of this encounter Visit Diagnoses Not on filedocumented in this encounter Additional Health Concerns Assessment Noted Time PHQ-9 Depression Total Score: 0 03/27/20 9:42 AM CDT documented as of this encounter Care Teams Embroidery Operator Relationship Specialty [place] [address] [place] [address] PCP - General Family Practice 11/16/15 10/15/24 Belinda Brunson CNP [facility] [place] [address] PCP - General Nurse Practitioner - Family 10/16/24 [place] [address] [place] [address] Assigned PCP 09/09/22 10/12/23 [place] [address] [place] [address] Assigned PCP 10/13/23 11/02/24 Junior Flores MD [address], [address] [address] Assigned OBGYN Provider 10/27/23 Belinda Brunson, LALO [address] [place] [address] Assigned PCP 11/03/24 documented as of this encounter
--- OUTSIDE RECORDS SUMMARY | 2025-02-21 12:06 | XMS_ITS | Encounter Summary ---
Author Organization [facility] Address [address] [place] [address] Care Team Providers Care Head Chopper Name Role Phone Loretta Grove MD Primary Care Provider [phone] Loretta Grove MD Unavailable [phone] Loretta Grove MD Unavailable [phone] Terrance Gudino DPM Unavailable [phone] Yvonne Bailey MD Unavailable [phone] Loretta Grove MD Unavailable [phone] Beverley Leonard OD Unavailable Shirin Rendon MD Unavailable Loretta Grove MD Unavailable [phone] Junior Flores MD Unavailable Belinda Brunson CNP Primary Care Provider [phone] Belinda Brunson CNP Unavailable [phone] Reason for Visit * Reason Onset Date Comments Trayt Communication 10/25/2016 Encounter Details Date Type Department Care Team (Late st Contact Info) Description 10/25/2016 [facility] [address] [place] [address] [place] [address] [place] [address] MyChart Communication Social History Tobacco Use Types Packs/Day Years Used Date Smoking Tobacco: Never Smokeless Tobacco: Never Alcohol Use Standard Drinks/Week Comments No 0 (1 standard drink = 0.6 oz pur e alcohol) Comments No Sex and Gender Information Value Date Recorded Sex Assigned at Female 03/19/2022 8:51 PM CDT Legal Sex Female 5:08 AM QUALITY MANAGEMENT NURSE Gender Identity Female 03/19/2022 8:51 PM CDT Sexual Orientation Not on file documented as of this encounter Plan of Treatment Upcoming Encounters Date Type Department Care Team (Late st Contact Info) Description 10/26/2025 9:30 AM QUALITY MANAGEMENT NURSE Office Visit [address] [phone] Belinda Brunson, LALO [address] [place] [address] documented as of this encounter Visit Diagnoses Not on filedocumented in this encounter Additional Health Concerns Infection Onset Date Last Indicated Resolved Time Rule Out C-difficile 04/08/2023 04/08/2023 023 3:47 PM CDT documented as of this encounter Care Teams Head Chopper Relationship Specialty [place] [address] [place] [address] PCP - General Family Practice 11/16/15 10/15/24 [place] [address] [place] [address] PCP - Assigned PCP 11/21/15 01/14/19 Belinda Brunson CNP [address] [place] [address] PCP - General Nurse Practitioner - Family 10/16/24 [place] [address] [place] [address] Assigned PCP 11/21/15 04/06/21 Terrance Gudino DPM [address] [facility] [address] [place] [address] Assigned Musculoskeletal Provider 09/03/20 10/05/20 Yvonne Bailey MD [address] [facility] [address] Assigned PCP 04/07/21 04/16/21 [place] [address] [place] [address] Assigned PCP 04/17/21 09/08/22 Beverley Leonard OD [facility] [place] [address] Assigned Surgical Provider 10/02/21 12/31/21 [place] [address] [place] [address] Assigned PCP 09/09/22 10/12/23 [place] [address] [place] [address] Assigned PCP 10/13/23 11/02/24 Junior Flores MD [address] [facility] [address] [place] [address] Assigned OBGYN Provider 10/27/23 Belinda Brunson, LALO [address] [place] [address]232 Assigned PCP 11/03/24 documented as of this encounter
--- OUTSIDE RECORDS SUMMARY | 2025-02-21 12:06 | XMS_ITS | Encounter Summary ---
Author Organization [facility] Address [address] [place] [address] Care Team Providers Care Production Or Plant Engineer Name Role Phone Loretta Grove MD Primary Care Provider [phone] Loretta Grove MD Unavailable [phone] Beverley Leonard OD Unavailable [phone] Shirin Rendon MD Unavailable Loretta Grove MD Unavailable [phone] Junior Flores MD Unavailable Belinda Brunson CNP Primary Care Provider Belinda Brunson CNP Unavailable [phone] Reason for Visit * Reason Onset Date Comments Same Day Appointment 10/21/2021 Encounter Details Date Type Department Care Team (Late st Contact Info) Description 10/21/2021 [facility] [address] [place] [address] [place] [address] [place] [address] Same Day Appointment Social History [...] PM CDT Legal Sex Female 5:08 AM CORPORATE CONTROLLER Gender Identity Female 03/19/2022 8:51 PM CDT Sexual Orientation Not on file COVID-19 Exposure Response Date Recorded In the last month, have you been in contact with someone who was confirmed or suspected to have Coronavirus / COVID-19? No / Unsure 10/22/2021 6:30 AM CORPORATE CONTROLLER documented as of this encounter Miscellaneous Notes * Telephone Encounter - Cristin Alejandro - 10/21/2021 12:22 PM CORPORATE CONTROLLER Reason for call: Same Day Appointment Requested Provider: Giovanni Gallo or other Primary Care provider at [facility]. PCP: [email or web address] Reason for visit: Lower right quadrant pain Duration of symptoms: Intermittent for 1 week Have you been treated for this in the past? No Additional comments: Patient is hoping to be worked into the clinic schedule today at [facility] by any provider. Per FNA, patient should be seen today and she is hoping to avoid Urgent care wait times of 3 hours. Please advise. Phone number to reach patient: Home number on file [phone] (home) Best Time: Bernardo Can we leave a detailed message on this number? YES Travel screening: Not Applicable ORATE CONTROLLER documented in this encounter Plan of Treatment Upcoming Encounters Date Type Department Care Team (Late st Contact Info) Description 10/26/2025 9:30 AM CORPORATE CONTROLLER Office Visit [address] [place] [phone] Belinda Brunson, [address] [address] documented as of this encounter Visit Diagnoses Not on filedocumented in this encounter Additional Health Concerns Infection Onset Date Last Indicated Resolved Time Rule Out C-difficile 04/08/2023 04/08/2023 023 3:47 PM CDT Assessment Noted Time PHQ-9 Depression Total Score: 0 03/27/20 19 9:42 AM CDT documented as of this encounter Care Teams Production Or Plant Engineer Relationship Specialty [place] [address] [place] [address] PCP - General Family Practice 11/16/15 10/15/24 Belinda Brunson CNP [address] [place] [address] PCP - General Nurse Practitioner - Family 10/16/24 [place] [address] [place] [address] Assigned PCP 04/17/21 09/08/22 Beverley Leonard OD [address] [facility] [place] [address] Assigned Surgical Provider 10/02/21 12/31/21 [place] [address] [place] [address] Assigned PCP 09/09/22 10/12/23 [place] [address] [place] [address] Assigned PCP 10/13/23 11/02/24 Junior Flores MD [address] [address] Assigned OBGYN Provider 10/27/23 Belinda Brunson, REMEDIAL READING TEACHER [address] [place] [address] Assigned PCP 11/03/24 documented as of this encounter
--- OUTSIDE RECORDS SUMMARY | 2025-02-21 12:06 | XMS_ITS | Encounter Summary ---
Author Organization [facility] Address [address] [place] [address] Care Team Providers Care Entry Operator Name Role Phone Loretta Grove MD Primary Care Provider [phone] Loretta Grove MD Unavailable [phone] Loretta Grove MD Unavailable [phone] Terrance Gudino DPM Unavailable [phone] Yvonne Bailey MD Unavailable [phone] Loretta Grove MD Unavailable [phone] Beverley Leonard OD Unavailable Shirin Rendon MD Unavailable Loretta Grove MD Unavailable [phone] Junior Flores MD Unavailable [phone] Belinda Brunson CNP Primary Care Provider [phone] Belinda Brunson CNP Unavailable [phone] Encounter Details Date Type Department Care Team (Late st Contact Info) Description 03/17/2016 MyC Medical Advice [address] [address] Analia Cui MD [address] [facility] [place] [address] Social History Tobacco Use Types Packs/Day Years Used Date Smoking Tobacco: Never Smokeless Tobacco: Never Alcohol Use Standard Drinks/Week Comments No 0 (1 standard drink = 0.6 oz pur e alcohol) Comments No Sex and Gender Information Value Date Recorded Sex Assigned at Female 03/19/2022 8:51 PM CDT Legal Sex Female 5:08 AM OFFICE TECHNOLOGY INSTRUCTOR Gender Identity Female 03/19/2022 8:51 PM CDT Sexual Orientation Not on file documented as of this encounter Plan of Treatment Upcoming Encounters Date Type Department Care Team (Late st Contact Info) Description 10/26/2025 9:30 AM OFFICE TECHNOLOGY INSTRUCTOR Office Visit [address] [phone] Belinda Brunson CNP [address] [place] [address] documented as of this encounter Visit Diagnoses Not on filedocumented in this encounter Additional Health Concerns Infection Onset Date Last Indicated Resolved Time Rule Out C-difficile 04/08/2023 04/08/2023 023 3:47 PM CDT documented as of this encounter Care Teams Entry Operator Relationship Specialty [place] [address] [place] [address] PCP - General Family Practice 11/16/15 10/15/24 [place] [address] [place] [address] PCP - Assigned PCP 11/21/15 01/14/19 Belinda Brunson CNP [address] [place] [address]2842 PCP - General Nurse Practitioner - Family 10/16/24 [place] [address] [place] [address] Assigned PCP 11/21/15 04/06/21 Terrance Gudino DPM [address] [facility] [address] [place] [address] Assigned Musculoskeletal Provider 09/03/20 10/05/20 Yvonne Bailey MD [address] [place] [address] Assigned PCP 04/07/21 04/16/21 [place] [address] [place] [address] Assigned PCP 04/17/21 09/08/22 [place] [address] [place] [address] [place] [address] Assigned Surgical Provider 10/02/21 12/31/21 [place] [address] [place] [address] Assigned PCP 09/09/22 10/12/23 [place] [address] [place] [address] Assigned PCP 10/13/23 11/02/24 Junior Flores MD [address] [facility], [address] [address] Assigned OBGYN Provider 10/27/23 Belinda Brunson, LALO [address] [place] [address] Assigned PCP 11/03/24 documented as of this encounter
--- OUTSIDE RECORDS SUMMARY | 2025-02-21 12:06 | XMS_ITS | Encounter Summary ---
Author Organization [facility] Address [address] [place] [address] Care Team Providers Care Night Shift Name Role Phone Loretta Grove MD Primary Care Provider [phone] Loretta Grove MD Unavailable [phone] Loretta Grove MD Unavailable [phone] Terrance Gudino DPM Unavailable [phone] Yvonne Bailey MD Unavailable [phone] Loretta Grove MD Unavailable [phone] Beverley Leonard OD Unavailable Shirin Rendon MD Unavailable Loretta Grove MD Unavailable [phone] Junior Flores MD Unavailable [phone] Beilnda Brunson CNP Primary Care Provider [phone] Belinda Brunson CNP Unavailable [phone] Encounter Details Date Type Department Care Team (Late st Contact Info) Description 07/01/2016 [facility] [address] [place] [phone] Maria Alejandra Sung APRN INTERSTATE BUS DRIVER [address] [place] [address] [address] [place] [address] Social History Tobacco Use Types Packs/Day Years Used Date Smoking Tobacco: Never Smokeless Tobacco: Never Alcohol Use Standard Drinks/Week Comments No 0 (1 standard drink = 0.6 oz pur e alcohol) Comments No Sex and Gender Information Value Date Recorded Sex Assigned at Female 03/19/2022 8:51 PM CDT Legal Sex Female 5:08 AM MANAGER BODY Gender Identity Female 03/19/2022 8:51 PM CDT Sexual Orientation Not on file documented as of this encounter Plan of Treatment Upcoming Encounters Date Type Department Care Team (Late st Contact Info) Description 10/26/2025 9:30 AM MANAGER BODY Office Visit [address] [address] Belinda Brunson CNP [address] [place] [address] documented as of this encounter Visit Diagnoses Not on filedocumented in this encounter Additional Health Concerns Infection Onset Date Last Indicated Resolved Time Rule Out C-difficile 04/08/2023 04/08/2023 023 3:47 PM CDT documented as of this encounter Care Teams Night Shift Relationship Specialty [place] [address] [place] [address] PCP - General Family Practice 11/16/15 10/15/24 [place] [address] [place] [address] PCP - Assigned PCP 11/21/15 01/14/19 Belinda Brunson CNP [address] [place] [address] PCP - General Nurse Practitioner - Family 10/16/24 [place] [address] [place] [address] Assigned PCP 11/21/15 04/06/21 Terrance Gudino DPM [address] [facility] [address] [place] [address] Assigned Musculoskeletal Provider 09/03/20 10/05/20 [place] [address] [place] [address] Assigned PCP 04/07/21 04/16/21 [place] [address] [place] [address] Assigned PCP 04/17/21 09/08/22 Beverley Leonard OD [address] [place] [address] [place] [address] Assigned Surgical Provider 10/02/21 12/31/21 [place] [address] [place] [address] Assigned PCP 09/09/22 10/12/23 [place] [address] [place] [address] Assigned PCP 10/13/23 11/02/24 Junior Flores MD [address], [facility] [address] [place] [address] Assigned OBGYN Provider 10/27/23 Belinda Brunson, INTERSTATE BUS DRIVER [address] [place] [address] Assigned PCP 11/03/24 documented as of this encounter
--- OUTSIDE RECORDS SUMMARY | 2025-02-21 12:06 | XMS_ITS | Encounter Summary ---
Author Organization [facility] Address [address] [place] [address] Care Team Providers Care Sinter Feeder Name Role Phone Loretta Grove MD Primary Care Provider [phone] Loretta Grove MD Unavailable [phone] Loretta Grove MD Unavailable [phone] Terrance Gudino DPM Unavailable [phone] Yvonne Bailey MD Unavailable [phone] Loretta Grove MD Unavailable [phone] Beverley Leonard OD Unavailable Shirin Rendon MD Unavailable Loretta Grove MD Unavailable [phone] Junior Flores MD Unavailable [phone] Belinda Brunson CNP Primary Care Provider [phone] Belinda Brunson CNP Unavailable [phone] Encounter Details Date Type Department Care Team (Late st Contact Info) Description 12/01/2018 [facility] [address] [place] [phone] [place] [address] [place] [address] Social History Tobacco Use Types Packs/Day Years Used Date Smoking Tobacco: Never Smokeless Tobacco: Never Alcohol Use Standard Drinks/Week Comments Yes 0 (1 standard drink = 0.6 oz pur e alcohol) wine sometimes PHQ-2 Answer Date Recorded PHQ-2 Score 0 11/20/2018 Comments No Sex and Gender Information Value Date Recorded Sex Assigned at Female 03/19/2022 8:51 PM CDT Legal Sex Female 5:08 AM PLUMBING WAREHOUSE HELPER Gender Identity Female 03/19/2022 8:51 PM CDT Sexual Orientation Not on file documented as of this encounter Plan of Treatment Upcoming Encounters Date Type Department Care Team ([facility] Contact Info) Description 10/26/2025 9:30 AM PLUMBING WAREHOUSE HELPER Office Visit [address] [phone] Belinda Brunson, LALO [address] [place] [address] documented as of this encounter Visit Diagnoses Not on filedocumented in this encounter Additional Health Concerns Infection Onset Date Last Indicated Resolved Time Rule Out C-difficile 04/08/2023 04/08/2023 023 3:47 PM CDT documented as of this encounter Care Teams Sinter Feeder Relationship Specialty [place] [address] [place] [address] PCP - General Family Practice 11/16/15 10/15/24 [place] [address] [place] [address] PCP - Assigned PCP 11/21/15 01/14/19 Belinda Brunson CNP [address]151 [place] [address] PCP - General Nurse Practitioner - Family 10/16/24 [place] [address] [place] [address] Assigned PCP 11/21/15 04/06/21 Terrance Gudino DPM [address] [facility] [address] [place] [address] Assigned Musculoskeletal Provider 09/03/20 10/05/20 Yvonne Bailey MD [address] [facility] [address] Assigned PCP 04/07/21 04/16/21 [place] [address] [place] [address] Assigned PCP 04/17/21 09/08/22 Beverley Leonard OD [address] [facility] [place] [address] Assigned Surgical Provider 10/02/21 12/31/21 [place] [address] [place] [address] Assigned PCP 09/09/22 10/12/23 [place] [address] [place] [address] Assigned PCP 10/13/23 11/02/24 Junior Flores MD [address], [facility] [address] [place] [address] Assigned OBGYN Provider 10/27/23 Belinda Brunson CNP [address] [place] [address]45[address] Assigned PCP 11/03/24 documented as of this encounter
--- OUTSIDE RECORDS SUMMARY | 2025-02-21 12:06 | XMS_ITS | Clinical Summary ---
Author Organization [facility] Address [address] [place] [address] Care Team Providers Care Developer Advocate Name Role Phone Junior Flores MD Unavailable Belinda Brunson CNP Primary Care Provider Belinda Brunson CNP Unavailable [phone] Allergies Active Allergy Reactions Criticality Noted Date [...] capsule 5 02/28/20 25 Active nystatin (MYCOSTATIN) 735706 UNIT/ML suspensionIndicati ons:Thrush Take 5 mLs (500,000 [...] per protocol, colp within three months. 12/26/12 [place]: SANTOS 1. ECC: Cannot exclude high grade. [...] Team Description 02/13/2025 8:15 AM CDT Lab [facility] [address] [place] [address] [place] [address] Mixed hyperlipidemia 02/13/2025 Travel 02/09/2025 Travel 02/06/2025 3:00 PM CDT Office [facility] [address] [facility] [facility] [place] [place] [place] [address] Belinda Brunson CNP Epigastric pain (Primary Dx); Thrush 02/06/2025 Travel 01/29/2025 MyC Medical Advice [address] [facility] [place] [place] [address] Belinda Brunson CNP Epigastric pain (Primary Dx) 01/28/2025 MyC Medical Advice [address] [facility] [place] [place] [address] Belinda Brunson CNP 01/19/2025 1:00 PM CDT Office Visit [address] [facility] [place] [place] [address] Belinda Brunson CNP Epigastric pain (Primary Dx); [...] than three times a week 10/12/2024 Attends [employer] Not on file 10/12 Active Member [...] Answer Date Recorded PHQ-2 Score 0 01/19/2025 [facility] - Occupational Stress Questionnaire Answer Date [...] in an abandoned building, in an overnight long-term, or couch-surfing.) Yes 10/12/2024 Are you worried [...] PM CDT Legal Sex Female 5:08 AM SUPERVISING BROKER Gender Identity Female 03/19/2022 8:51 PM CDT [...] st Contact Info) Description 10/26/2025 9:30 AM SUPERVISING BROKER Office Visit [address] [address] Belinda Brunson, [address] [address] Health Maintenance Due Date Last Done Comments [...] FREE T4 REFLEX Routine 10/17/2024 11:37 AM SUPERVISING BROKER Hypothyroidism, unspecified type MA SCREENING BILATERAL W/ RON Routine 10/03/2024 9:37 AM SUPERVISING BROKER Visit for screening mammogram DX BONE DENSITY Routine 06/14/2023 4:40 PM CDT Screening for condition Postmenopausal status HPV HIGH RISK TYPES DNA CERVICAL Routine 08/29/2022 8:52 AM CDT Cervical cancer screening GYNECOLOGIC CYTOLOGY Routine 08/29/2022 8:52 AM CDT Cervical cancer screening COLONOSCOPY - HIM SCAN 08/16/2020 12:00 AM CDT HEPATITIS C ANTIBODY Routine 11/24/2010 10:55 AM SUPERVISING BROKER from Last 3 Months or Most Recently [...] High: >= 220 mg/dL us Belinda Brunson SALES RECRUITMENT SPECIALIST LAB - BLOOD ORDERABLES Fi nal Result [facility] [place] [facility] [address] [facility], Room [address] [address] * Helicobacter pylori Antigen Stool (02/09/2025 [...] inal Result SPECIALTY CORE/PROT/ENDO Specialty Core/Prot/Endo [facility], Room [address] SPECIALTY LABS Specialty Lab [facility], [address] [address], [place] * Lipase (01/19/2025 1:37 PM CDT) [facility] Lipase 45 13 - 60 U/L 01/20/2025 3:08 PM CDT [facility] Blood BLOOD SPECIMEN / Unknown Venipuncture / Unknown 01/19/2025 1:37 PM CDT 01/19/2025 1:37 PM CDT Belinda Brunson CNP LAB - BLOOD ORDERABLES Fi nal Result [facility] [address] [place], [place] [address] [place] [address] * (ABNORMAL) Comprehensive metabolic panel (BMP + Alb, Alk Phos, ALT, AST, Total. Bili, TP) (01/19/2025 1:37 PM CDT) [facility] Sodium 136 135 - 145 mmol/L 01/20/2025 3:08 PM CDT [facility] Potassium 5.0 3.4 - 5.3 mmol/L 01/20/2025 3:08 PM CDT [facility] Carbon Dioxide (CO2) 25 22 [...] CDT 01/19/2025 1:37 PM CDT Belinda Brunson SALES RECRUITMENT SPECIALIST LAB - BLOOD ORDERABLES Fi nal Result N LABORATORY [facility] [address] [place] [address], [facility] * TSH with free T4 reflex (10/17/2024 11:37 AM SUPERVISING BROKER) TSH 2.34 0.30 - 4.20 uIU/mL 10/17/2024 9:44 PM SUPERVISING BROKER [facility] Blood BLOOD SPECIMEN / Unknown Venipuncture / Unknown 10/17/2024 11:37 AM SUPERVISING BROKER 10/17/2024 11:37 AM SUPERVISING BROKER Belinda Brunson CNP LAB - BLOOD ORDERABLES Fi nal Result [facility] [place] [facility] [address] [facility], Room [address]580 [place] [address], [facility] * MA Screening Bilateral w/ Ron (10/03/2024 9:37 AM SUPERVISING BROKER) Anatomical Region Laterality Modality Breast Bilateral Mammography Impressions 10/06/2024 9:36 AM SUPERVISING BROKER IMPRESSION: ACR BI-RADS Category 1: Negative BREAST CANCER SCREENING RECOMMENDATION: Routine yearly mammography beginning at age 40 or as discussed with your provider. The results and recommendations of this examination will be communicated to the patient. Denise Alvarez MD Narrative 10/06/2024 9:36 AM SUPERVISING BROKER BILATERAL FULL FIELD DIGITAL SCREENING MAMMOGRAM WITH [...] Narrative 06/16/2023 2:36 PM CDT BONE DENSITOMETRY [address] [address] 06/14/2023 PATIENT: Leatha eCballos CHART: [id number] : 1955 AGE: [age] year old SEX: female REFERRING PROVIDER: Shirin Rendon MD PROCEDURE: Bone density scanning was performed using DXA technology of the lumbar spine and hip. Scanning was performed on a [employer]iaLive scanner. Reporting is completed in the form [...] to another DXA performed on the same SociaLive machine on 01/29/2012. IMPRESSION Low Bone Density [...] component of this testing was completed at [facility] 08/31/2022 10:28 AM CDT SPECIALTY LABS Brushing CERVIX UTERI STRUCTURE / Unknown Non-blood Collection / Unknown 08/29/2022 8:52 AM CDT 08/29/2022 9:12 AM CDT us Shirin GONZALEZ - YARITZA REILLY Final Result SPECIALTY LAB[facility] [address], [address] [place] [address], [place] [phone] * HPV High Risk Types DNA Cervical (08/29/2022 8:52 AM CDT) Other HR HPV Negative Negative 09/04/2022 12:44 PM CDT [facility]ST[facility] HPV16 DNA Negative Negative 09/04/2022 12:44 PM CDT [facility] DIAGNOSTICS HPV18 DNA Negative Negative 09/04/2022 12:44 PM CDT MOLECULAR DIAGNOSTICS FINAL DIAGNOSIS This patient's sample is negative for HPV DNA. This test was developed and its performance characteristics determined by the [facility], Molecular Diagnostics Laboratory. It has not been [...] Res ult MOLECULAR DIAGNOSTICS Molecular Diagnostics [address] [facility] [address] [facility], Room [address] [place] [address], [facility] [phone] * COLONOSCOPY - HIM SCAN (08/16/2020 12:00 AM CDT) 08/16/2020 us Provider Outside PROCEDURES Final Result * Hepatitis C antibody (11/24/2010 10:55 AM SUPERVISING BROKER) Hepatitis C Antibody Negative [facility]G [facility] Blood specimen (specimen) 11/24/2010 10:55 AM SUPERVISING BROKER 11/24/2010 11:01 AM SUPERVISING BROKER Alexandro Neves MD LAB - BLOOD ORDERABLES Final Result [facility] [address] [place] [address] from Last 3 Months or Most Recently Relevant to Health Maintenance Insurance UC[employer] MEDICARE UC[employer] MEDICARE Care Teams Developer Advocate Relationship Specialty Start Date End Date Belinda Brunson CNP [facility] [place], [place] [phone] PCP - General Nurse Practitioner - Family 10/16/24 Junior Flores MD [facility] [address] [facility], [address] [address] Assigned OBGYN Provider 10/27/23 Belinda Brunson CNP [address] [place] [address] 090602 Assigned PCP 11/03/24
--- OUTSIDE RECORDS SUMMARY | 2025-02-21 12:06 | XMS_ITS | Encounter Summary ---
Author Organization [facility] Address [address] [place] [address] Care Team Providers Care Intake Assessor Name Role Phone Loretta Grove MD Primary Care Provider [phone] Loretta Grove MD Unavailable [phone] Loretta Grove MD Unavailable [phone] Terrance Gudino DPM Unavailable [phone] Yvonne Bailey MD Unavailable [phone] Loretta Grove MD Unavailable [phone] Beverley Leonard OD Unavailable Shirin Rendon MD Unavailable Loretta Grove MD Unavailable [phone] Junior Flores MD Unavailable Belinda Brunson CNP Primary Care Provider [phone] Belinda Brunson CNP Unavailable [phone] Encounter Details Date Type Department Care Team (Late st Contact Info) Description 03/16/2016 MyC Medical Advice [address] [address] Analia Cui MD [address] [facility] [place] [address] Social History Tobacco Use Types Packs/Day Years Used Date Smoking Tobacco: Never Smokeless Tobacco: Never Alcohol Use Standard Drinks/Week Comments No 0 (1 standard drink = 0.6 oz pur e alcohol) Comments No Sex and Gender Information Value Date Recorded Sex Assigned at Female 03/19/2022 8:51 PM CDT Legal Sex Female 5:08 AM SOFTWARE LICENSING ANALYST Gender Identity Female 03/19/2022 8:51 PM CDT Sexual Orientation Not on file documented as of this encounter Plan of Treatment Upcoming Encounters Date Type Department Care Team (Late st Contact Info) Description 10/26/2025 9:30 AM SOFTWARE LICENSING ANALYST Office Visit [address] [phone] Belinda Brunson CNP [address] [place] [address] documented as of this encounter Visit Diagnoses Not on filedocumented in this encounter Additional Health Concerns Infection Onset Date Last Indicated Resolved Time Rule Out C-difficile 04/08/2023 04/08/2023 023 3:47 PM CDT documented as of this encounter Care Teams Intake Assessor Relationship Specialty [place] [address] [place] [address] PCP - General Family Practice 11/16/15 10/15/24 [place] [address] [place] [address] PCP - Assigned PCP 11/21/15 01/14/19 Belinda Brunson CNP [address] [place] [address] 963232 PCP - General Nurse Practitioner - Family 10/16/24 [place] [address] [place] [address] Assigned PCP 11/21/15 04/06/21 Terrance Gudino DPM [address] [facility] [address] [place] [address] Assigned Musculoskeletal Provider 09/03/20 10/05/20 Yvonne Bailey MD [address] [place] [id number] Assigned PCP 04/07/21 04/16/21 [place] [address] [place] [address] Assigned PCP 04/17/21 09/08/22 [place] [address] [place] [address] [place] [id number] Assigned Surgical Provider 10/02/21 12/31/21 [place] [address] [place] [address] Assigned PCP 09/09/22 10/12/23 [place] [address] [place] [address] Assigned PCP 10/13/23 11/02/24 Junior Flores MD [address] [facility], [address] [address] Assigned OBGYN Provider 10/27/23 Belinda Brunson, LALO [address] [place] [address] Assigned PCP 11/03/24 documented as of this encounter
--- OUTSIDE RECORDS SUMMARY | 2025-02-21 12:07 | XMS_ITS | Encounter Summary ---
Author Organization [facility] Address [address] [place] [address] Care Team Providers Care Supervisor Vacuum Metalizing Name Role Phone Junior Flores MD Unavailable [phone] Belinda Brunson CNP Primary Care Provider [phone] Belinda Brunson CNP Unavailable [phone] Encounter Details Date Type Department Care Team [...] than three times a week 10/12/2024 Attends [employer] Not on file 10/12 Active Member [...] Answer Date Recorded PHQ-2 Score 0 01/19/2025 [facility] of Occupat ional [facility] - Occupational Stress Questionnaire Answer Date [...] in an abandoned building, in an overnight prison, or couch-surfing.) Yes 10/12/2024 Are you worried [...] PM CDT Legal Sex Female 5:08 AM ENGINEHOUSE BRAKEMAN Gender Identity Female 03/19/2022 8:51 PM CDT Sexual Orientation Not on file documented as of this encounter Plan of Treatment Upcoming Encounters Date Type Department Care Team (Late st Contact Info) Description 10/26/2025 9:30 AM ENGINEHOUSE BRAKEMAN Office Visit [address] [address] Belinda Brunson CNP [address] [place] [address] [phone] documented as of this encounter Visit Diagnoses Not on filedocumented in this encounter Additional Health Concerns Assessment Noted Time PHQ-9 Depression Total Score: 0 03/27/20 19 9:42 AM CDT documented as of this encounter Care Teams Supervisor Vacuum Metalizing Relationship Specialty Start Date End Date Belinda Brunson CNP [address] [place] [address] [id number] PCP - General Nurse Practitioner - Family 10/16/24 Junior Flores MD [address] [address] Assigned OBGYN Provider 10/27/23 Belinda Brunson CNP [address] [place] [address]24192 Assigned PCP 11/03/24 documented as of this encounter
--- OUTSIDE RECORDS SUMMARY | 2025-02-21 12:07 | XMS_ITS | Encounter Summary ---
Author Organization [facility] Address [address] [place] [address] Care Team Providers Care Risk Management Intern Name Role Phone Junior Flores MD Unavailable [phone] Belinda Brunson CNP Primary Care Provider [phone] Belinda Brunson CNP Unavailable [phone] Reason for Referral * Diagnostic Imaging Ultrasound (Routine) - Pending Review Specialty Diagnoses / Procedures Referred By Hali burns Referred To Contact Radiology. Diagnoses Epigastric pain Procedures US Abdomen Limited Belinda Brunson CNP [address] [place] [address] Phone: tel: fax: Referral ID Status Reason Start Date Expiration Date V isits Requested Visits Authorized [id number] Pending Review 01/19/2025 01/19/2026 1 1 Reason for Visit * Reason Comments Abdominal Pain Encounter Details Date Type Department Care Team (Late st Contact Info) Description 01/19/2025 1:00 PM CDT Office Visit [address] [phone] Belinda Brunson CNP [address] [place] [address] Epigastric pain (Primary Dx); Mixed hyperlipidemia; Chest [...] than three times a week 10/12/2024 Attends [employer] Services Not on file 10/12 Active Member [...] Answer Date Recorded PHQ-2 Score 0 01/19/2025 [facility] - Occupational [...] in an abandoned building, in an overnight assisted, or couch-surfing.) Yes 10/12/2024 Are you worried [...] PM CDT Legal Sex Female 5:08 AM TWENTY ONE DEALER Gender Identity Female 03/19/2022 8:51 PM CDT [...] Body Mass Index 25.86 10/17/2024 10:45 AM TWENTY ONE DEALER documented in this encounter Progress Notes * Belinda Brunsonth, CHEF ASSISTANT - 01/19/2025 1:00 PM CDT Assessment & [...] st Contact Info) Description 10/26/2025 9:30 AM TWENTY ONE DEALER Office Visit [address] [place] [phone] Belinda Brunson CNP [address] [place] [address] Scheduled Orders Name Type Priority Associated Diagnoses [...] High: >= 220 mg/dL us Belinda Brunson CHEF ASSISTANT LAB - BLOOD ORDERABLES Fi nal Result [facility] [address] [facility], [address] [place] [address], [facility] * (ABNORMAL) Comprehensive metabolic panel (BMP [...] 0.2 <=1.2 mg/dL 01/20/2025 3:08 PM CDT [facility] Blood BLOOD SPECIMEN / Unknown Venipuncture / Unknown 01/19/2025 1:37 PM CDT 01/19/2025 1:37 PM CDT Belinda Brunson CNP LAB - BLOOD ORDERABLES Fi nal Result Performing Organization Address City/[facility]/ZIP Co de Phone Number [facility] [address] * Lipase (01/19/2025 1:37 PM CDT) Lipase 45 13 - 60 U/L 01/20/2025 3:08 PM CDT [facility] Blood BLOOD SPECIMEN / Unknown Venipuncture / Unknown 01/19/2025 1:37 PM CDT 01/19/2025 1:37 PM CDT Belinda Brunson CNP LAB - BLOOD ORDERABLES Fi nal Result Performing Organization Address City/[facility] de Phone Number [facility] [address] documented in this encounter Visit Diagnoses Diagnosis Epigastric pain- Primary Abdominal pain, epigastric Mixed hyperlipidemia Chest wall pain Painful respiration documented in this encounter Additional Health Concerns Assessment Noted Time PHQ-9 Depression Total Score: 0 03/27/20 19 9:42 AM CDT documented as of this encounter Care Teams Risk Management Intern Relationship Specialty Start Date End Date Belinda Brunson CNP [address] [place] [address] PCP - General Nurse Practitioner - Family 10/16/24 Junior Flores MD [address] [address] Assigned OBGYN Provider 10/27/23 Belinda Brunson CNP [address] [place] [address] Assigned PCP 11/03/24 documented as of this encounter
--- OUTSIDE RECORDS SUMMARY | 2025-02-21 12:07 | XMS_ITS | Encounter Summary ---
Author Organization [place] Address [address] [place] [address] Care Team Providers Care Power Truck Driver Name Role Phone Junior Flores MD Unavailable + [phone] Belinda Brunson CNP Primary Care Provider +[phone] Belinda Brunson CNP Unavailable [phone] Encounter Details Date Type Department Care Team [...] than three times a week 10/12/2024 Attends [employer] Not on file 10/12 Active Member [...] Answer Date Recorded PHQ-2 Score 0 01/19/2025 [facility] [place] of Occupat ional [facility] - Occupational Stress Questionnaire Answer Date [...] PM CDT Legal Sex Female 5:08 AM LOADING UNIT OPERATOR SEATING Gender Identity Female 03/19/2022 8:51 PM CDT Sexual Orientation Not on file documented as of this encounter Plan of Treatment Upcoming Encounters Date Type Department Care Team (Late st Contact Info) Description 10/26/2025 9:30 AM LOADING UNIT OPERATOR SEATING Office Visit [address] [phone] Belinda Brunson CNP [address] [place] [address] 659102 documented as of this encounter Visit Diagnoses Not on filedocumented in this encounter Additional Health Concerns Assessment Noted Time PHQ-9 Depression Total Score: 0 03/27/20 19 9:42 AM CDT documented as of this encounter Care Teams Power Truck Driver Relationship Specialty Start Date End Date Belinda Brunson CNP [address] [place] [address] [phone] PCP - General Nurse Practitioner - Family 10/16/24 Junior Flores MD [address] [address] Assigned OBGYN Provider 10/27/23 Belinda Brunson CNP [address] [place] [address] [id number] Assigned PCP 11/03/24 documented as of this encounter
--- OUTSIDE RECORDS SUMMARY | 2025-02-21 12:07 | XMS_ITS | Encounter Summary ---
Author Organization [place] Address [address] [place] [address] Care Team Providers Care Couture Alterations Dressmaker Name Role Phone Loretta Grove MD Primary Care Provider [phone] Loretta Grove MD Unavailable [phone] Terrance GudinoM Unavailable [phone] Yvonne Bailey MD Unavailable [phone] Loretta Grove MD Unavailable [phone] Beverley Leonard OD Unavailable Shirin Rendon MD Unavailable Loretta Grove MD Unavailable [phone] Junior Flores MD Unavailable Belinda Brunson CNP Primary Care Provider [phone] Belinda Brunson CNP Unavailable [phone] Reason for Visit * Reason Onset Date Comments MyChart Communication 04/23/2019 Encounter Details Date Type Department Care Team (Late st Contact Info) Description 04/23/2019 [facility] [id number] [place] [phone] [place] [address] [place] [address] MyChart Communication Social History Tobacco Use Types [...] PM CDT Legal Sex Female 5:08 AM PT SKILLED Gender Identity Female 03/19/2022 8:51 PM CDT Sexual Orientation Not on file documented as of this encounter Plan of Treatment Upcoming Encounters Date Type Department Care Team (Late st Contact Info) Description 10/26/2025 9:30 AM PT SKILLED Office Visit [address] [phone] Belinda Brunson CNP [address] [place] [address] documented as of this encounter Visit Diagnoses Not on filedocumented in this encounter Additional Health Concerns Infection Onset Date Last Indicated Resolved Time Rule Out C-difficile 04/08/2023 04/08/2023 023 3:47 PM CDT Assessment Noted Time PHQ-9 Depression Total Score: 0 03/27/20 19 9:42 AM CDT documented as of this encounter Care Teams Couture Alterations Dressmaker Relationship Specialty [place] [address] [place] [address] PCP - General Family Practice 11/16/15 10/15/24 Belinda Brunson CNP [address] [place] [address] PCP - General Nurse Practitioner - Family 10/16/24 [place] [address] [place] [address] Assigned PCP 11/21/15 04/06/21 Terrance Gudino DPM [address] [facility] [address] [place] [address] Assigned Musculoskeletal Provider 09/03/20 10/05/20 Yvonne Bailey MD [address] [facility] [place] [address] Assigned PCP 04/07/21 04/16/21 [place] [address] [place] [address] Assigned PCP 04/17/21 09/08/22 Beverley Leonard OD [address] [facility] [place] [address] Assigned Surgical Provider 10/02/21 12/31/21 [place] [address] [place] [address] Assigned PCP 09/09/22 10/12/23 [place] [address] [place] [address] Assigned PCP 10/13/23 11/02/24 Junior Flores MD [address] [facility] [address] [place] [address] Assigned OBGYN Provider 10/27/23 Belinda Brunson, LALO [address] [place] [address] Assigned PCP 11/03/24 documented as of this encounter
--- OUTSIDE RECORDS SUMMARY | 2025-02-21 12:07 | XMS_ITS | Encounter Summary ---
Author Organization [place] Address [address] [place] [address] Care Team Providers Care Sampler Tester Name Role Phone Loretta Grove MD Primary Care Provider [phone] Loretta Grove MD Unavailable [phone] Terrance GudinoM Unavailable [phone] Yvonne Bailey MD Unavailable [phone] Loretta Grove MD Unavailable [phone] Beverley Leonard OD Unavailable [phone] Shirin Rendon MD Unavailable Loretta Grove MD Unavailable [phone] Junior Flores MD Unavailable Belinda Brunson CNP Primary Care Provider [phone] Belinda Brunson CNP Unavailable [phone] Encounter Details Date Type Department Care Team (Late st Contact Info) Description 07/13/2020 [facility] [address] [place] [phone] Ilda Solorzano Social History Tobacco Use Types [...] PM CDT Legal Sex Female 5:08 AM GARNETTER Gender Identity Female 03/19/2022 8:51 PM CDT [...] st Contact Info) Description 10/26/2025 9:30 AM GARNETTER Office Visit [address] [phone] Belinda Brunson CNP [address] [place] [address] documented as of this encounter Visit Diagnoses Not on filedocumented in this encounter Additional Health Concerns Infection Onset Date Last Indicated Resolved Time Rule Out C-difficile 04/08/2023 04/08/2023 023 3:47 PM CDT Assessment Noted Time PHQ-9 Depression Total Score: 0 03/27/20 19 9:42 AM CDT documented as of this encounter Care Teams Sampler Tester Relationship Specialty [place] [address] [place] [address] PCP - General Family Practice 11/16/15 10/15/24 Belinda Brunson CNP [address] [place] [address] PCP - General Nurse Practitioner - Family 10/16/24 [place] [address] [place] [address] Assigned PCP 11/21/15 04/06/21 Terrance Gudino DPM [address] [facility] [address] [place] [address] Assigned Musculoskeletal Provider 09/03/20 10/05/20 Yvonne Bailey MD [address] [facility] [place] [address] Assigned PCP 04/07/21 04/16/21 [place] [address] [place] [address] Assigned PCP 04/17/21 09/08/22 Beverley Leonard OD [address] [facility] [place] [address] Assigned Surgical Provider 10/02/21 12/31/21 [place] [address] [place] [address] Assigned PCP 09/09/22 10/12/23 [place] [address] [place] [address] Assigned PCP 10/13/23 11/02/24 Junior Flores MD [address], [facility] [address] [place] [address] Assigned OBGYN Provider 10/27/23 Belinda Brunson, WAFER FABRICATION TECHNICIAN [address] [place] [address] Assigned PCP 11/03/24 documented as of this encounter
--- OUTSIDE RECORDS SUMMARY | 2025-02-21 12:07 | XMS_ITS | Encounter Summary ---
Author Organization [place] Address [address] [place] [address] Care Team Providers Care Montessori Preschool Teacher Name Role Phone Loretta Grove MD Primary Care Provider [phone] Lorteta Grove MD Unavailable [phone] Terrance GudinoM Unavailable [phone] Yvonne Bailey MD Unavailable [phone] Loretta Grove MD Unavailable [phone] Beverley Leonard OD Unavailable Shirin Rendon MD Unavailable Loertta Grove MD Unavailable [phone] Junior Flores MD Unavailable Belinda Brunson CNP Primary Care Provider [phone] Belinda Brunson CNP Unavailable [phone] Encounter Details Date Type Department Care Team (Late st Contact Info) Description 05/21/2020 [facility] [address] [place] [address] [place] [address] [place] [address] Social History Tobacco Use Types Packs/Day Years Used Date Smoking Tobacco: Never Smokeless Tobacco: Never Alcohol Use Standard Drinks/Week Comments Yes 0 (1 standard drink = 0.6 oz pur e alcohol) wine sometimes PHQ-2 Answer Date Recorded PHQ-2 Score 0 11/20/2018 Comments No Sex and Gender Information Value Date Recorded Sex Assigned at Female 03/19/2022 8:51 PM CDT Legal Sex Female 5:08 AM BARREL CAP SETTER Gender Identity Female 03/19/2022 8:51 PM CDT [...] st Contact Info) Description 10/26/2025 9:30 AM BARREL CAP SETTER Office Visit [address] [phone] Belinda Brunson CNP [address] [place] [address] 485782 documented as of this encounter Visit Diagnoses Not on filedocumented in this encounter Additional Health Concerns Infection Onset Date Last Indicated Resolved Time Rule Out C-difficile 04/08/2023 04/08/2023 023 3:47 PM CDT Assessment Noted Time PHQ-9 Depression Total Score: 0 03/27/20 19 9:42 AM CDT documented as of this encounter Care Teams Montessori Preschool Teacher Relationship Specialty [place] [address] [place] [address] PCP - General Family Practice 11/16/15 10/15/24 Belinda Brunson CNP [address] [place] [address] [id number] PCP - General Nurse Practitioner - Family 10/16/24 [place] [address] [place] [address] Assigned PCP 11/21/15 04/06/21 Terrance Gudino DPM [address] [facility] [address] [place] [address] Assigned Musculoskeletal Provider 09/03/20 10/05/20 [place] [address] [place] [address] Assigned PCP 04/07/21 04/16/21 [place] [address] [place] [address] Assigned PCP 04/17/21 09/08/22 Beverley Leonard OD [address] [place] [address] [place] [address] Assigned Surgical Provider 10/02/21 12/31/21 [place] [address] [place] [address] Assigned PCP 09/09/22 10/12/23 [place] [address] [place] [address] Assigned PCP 10/13/23 11/02/24 Junior Flores MD [address], [facility] [address] [place] [address] Assigned OBGYN Provider 10/27/23 Belinda Brunson, SUPERVISOR CORDUROY CUTTING [address] [place] [address] Assigned PCP 11/03/24 documented as of this encounter
--- OUTSIDE RECORDS SUMMARY | 2025-02-21 12:07 | XMS_ITS | Encounter Summary ---
Author Organization [place] Address [address] [place] [address] Care Team Providers Care It Network Administrator Name Role Phone Loretta Grove MD Primary Care Provider [phone] Loretta Grove MD Unavailable [phone] Terrance GudinoM Unavailable [phone] Yvonne Bailey MD Unavailable [phone] Loretta Grove MD Unavailable [phone] Beverley Leonard OD Unavailable Shirin Rendon MD Unavailable Loretta Grove MD Unavailable [phone] Junior Flores MD Unavailable Belinda Brunson CNP Primary Care Provider [phone] Belinda Brunson CNP Unavailable [phone] Encounter Details Date Type Department Care Team (Late st Contact Info) Description 03/22/2020 [facility] Medical Advice [facility] [address] [place] [address] Maria Alejandra Sung APRN CURING OVEN TENDER [address] [place] [address] Social History Tobacco Use Types Packs/Day Years Used Date Smoking Tobacco: Never Smokeless Tobacco: Never Alcohol Use Standard Drinks/Week Comments Yes 0 (1 standard drink = 0.6 oz pur e alcohol) wine sometimes PHQ-2 Answer Date Recorded PHQ-2 Score 0 11/20/2018 Comments No Sex and Gender Information Value Date Recorded Sex Assigned at Female 03/19/2022 8:51 PM CDT Legal Sex Female 5:08 AM NUCLEAR MEDICINE TECHNOLOGIST Gender Identity Female 03/19/2022 8:51 PM CDT [...] st Contact Info) Description 10/26/2025 9:30 AM NUCLEAR MEDICINE TECHNOLOGIST Office Visit [address] [phone] Belinda Brunson CNP [address] [place] [address] [phone] documented as of this encounter Visit Diagnoses Not on filedocumented in this encounter Additional Health Concerns Infection Onset Date Last Indicated Resolved Time Rule Out C-difficile 04/08/2023 04/08/2023 023 3:47 PM CDT Assessment Noted Time PHQ-9 Depression Total Score: 0 03/27/20 19 9:42 AM CDT documented as of this encounter Care Teams It Network Administrator Relationship Specialty Start [place] [address] [place] [address] PCP - General Family Practice 11/16/15 10/15/24 Belinda Brunson CNP [address] [place] [address] PCP - General Nurse Practitioner - Family 10/16/24 [place] [address] [place] [address] Assigned PCP 11/21/15 04/06/21 Terrance Gudino DPM [address] [facility] [address] [place] [address] Assigned Musculoskeletal Provider 09/03/20 10/05/20 [place] [address] [place] [address] [place] [address] Assigned PCP 04/07/21 04/16/21 [place] [address] [place] [address] Assigned PCP 04/17/21 09/08/22 Beverley Leonard OD [address] [place] [address] [place] [address] Assigned Surgical Provider 10/02/21 12/31/21 [place] [address] [place] [address] Assigned PCP 09/09/22 10/12/23 [place] [address] [place] [address] Assigned PCP 10/13/23 11/02/24 Junior Flores MD [address] [facility] [address] [place] [address] Assigned OBGYN Provider 10/27/23 Belinda Brunson, CURING OVEN TENDER [address] [place] [address] Assigned PCP 11/03/24 documented as of this encounter
--- OUTSIDE RECORDS SUMMARY | 2025-02-21 12:07 | XMS_ITS | Encounter Summary ---
Author Organization [place] Address [address] [place] [address] Care Team Providers Care Incident Response Engineer Name Role Phone Loretta Grove MD Primary Care Provider [phone] Loretta Grove MD Unavailable [phone] Beverley Leonard OD Unavailable [phone] Shirin Rendon MD Unavailable Loretta Grove MD Unavailable [phone] Junior Flores MD Unavailable Belinda Brunson CNP Primary Care Provider [phone] Belinda Brunson CNP Unavailable [phone] Encounter Details Date Type Department Care Team [...] PM CDT Legal Sex Female 5:08 AM SLASHER MACHINE OPERATOR Gender Identity Female 03/19/2022 8:51 PM CDT Sexual Orientation Not on file COVID-19 Exposure Response Date Recorded In the last month, have you been in contact with someone who was confirmed or suspected to have Coronavirus / COVID-19? No / Unsure 10/22/2021 6:30 AM SLASHER MACHINE OPERATOR documented as of this encounter Plan of Treatment Upcoming Encounters Date Type Department Care Team (Late st Contact Info) Description 10/26/2025 9:30 AM SLASHER MACHINE OPERATOR Office Visit [address] [phone] Belinda Brunson, LALO [address] [place] [address] [phone] documented as of this encounter Visit Diagnoses Not on filedocumented in this encounter Additional Health Concerns Infection Onset Date Last Indicated Resolved Time Rule Out C-difficile 04/08/2023 04/08/2023 023 3:47 PM CDT Assessment Noted Time PHQ-9 Depression Total Score: 0 03/27/20 19 9:42 AM CDT documented as of this encounter Care Teams Incident Response Engineer Relationship Specialty [place] [address] [place] [address] PCP - General Family Practice 11/16/15 10/15/24 Belinda Brunson, LALO [address] [place] [address] PCP - General Nurse Practitioner - Family 10/16/24 [place] [address] [place] [address] Assigned PCP 04/17/21 09/08/22 Beverley Leonard OD [address] [place] [address] [place] [address] Assigned Surgical Provider 10/02/21 12/31/21 [place] [address] [place] [address] Assigned PCP 09/09/22 10/12/23 [place] [address] [place] [address] Assigned PCP 10/13/23 11/02/24 Junior Flores MD [address] [facility], [address] [address] Assigned OBGYN Provider 10/27/23 Belinda Brunson, RANGE MANAGEMENT SPECIALIST [address] [place] [address] Assigned PCP 11/03/24 documented as of this encounter
--- OUTSIDE RECORDS SUMMARY | 2025-02-21 12:07 | XMS_ITS | Encounter Summary ---
Author Organization [place] Address [address] [place] [address] Care Team Providers Care Staff Antisubmarine Officer Name Role Phone Loretta Grove MD Primary Care Provider [phone] Loretta Grove MD Unavailable [phone] Terrance GudinoM Unavailable [phone] Yvonne Bailey MD Unavailable [phone] Loretta Grove MD Unavailable [phone] Beverley Leonard OD Unavailable Shirin Rendon MD Unavailable Loretta Grove MD Unavailable [phone] Junior Flores MD Unavailable Belinda Brunson CNP Primary Care Provider [phone] Belinda Brunson CNP Unavailable [phone] Reason for Visit * Reason Onset Date Comments MyChart Communication 09/16/2020 Encounter Details Date Type Department Care Team (Late st Contact Info) Description 09/16/2020 [facility] [address] [place] [phone] [place] [address] [place] [address] MyChart Communication Social History Tobacco Use Types [...] PM CDT Legal Sex Female 5:08 AM ONLINE ADVERTISING ANALYST Gender Identity Female 03/19/2022 8:51 PM CDT Sexual Orientation Not on file documented as of this encounter Plan of Treatment Upcoming Encounters Date Type Department Care Team (Late st Contact Info) Description 10/26/2025 9:30 AM ONLINE ADVERTISING ANALYST Office Visit [address] [phone] Belinda Brunson CNP [address] [place] [address] documented as of this encounter Visit Diagnoses Not on filedocumented in this encounter Additional Health Concerns Infection Onset Date Last Indicated Resolved Time Rule Out C-difficile 04/08/2023 04/08/2023 023 3:47 PM CDT Assessment Noted Time PHQ-9 Depression Total Score: 0 03/27/20 19 9:42 AM CDT documented as of this encounter Care Teams Staff Antisubmarine Officer Relationship Specialty [place] [address] [place] [address] PCP - General Family Practice 11/16/15 10/15/24 Belinda Brunson CNP [address] [place] [address] PCP - General Nurse Practitioner - Family 10/16/24 [place] [address] [place] [address] Assigned PCP 11/21/15 04/06/21 Terrance Gudino DPM [address] [facility] [address] [place] [address] Assigned Musculoskeletal Provider 09/03/20 10/05/20 Yvonne Bailey MD [address] [facility] [place] [address] Assigned PCP 04/07/21 04/16/21 [place] [address] [place] [address] Assigned PCP 04/17/21 09/08/22 Beverley Leonard OD [address] [facility] [place] [address] Assigned Surgical Provider 10/02/21 12/31/21 [place] [address] [place] [address] Assigned PCP 09/09/22 10/12/23 [place] [address] [place] [address] Assigned PCP 10/13/23 11/02/24 Junior Flores MD [address] [facility] 100 [place] [address] Assigned OBGYN Provider 10/27/23 Belinda Brunson, LALO [address] [place] [address] Assigned PCP 11/03/24 documented as of this encounter
--- OUTSIDE RECORDS SUMMARY | 2025-02-21 12:07 | XMS_ITS | Clinical Summary ---
Author Organization [employer] [facility] Address [address] [place] [address] Care Team Providers Care Furniture Upholstery Mechanic Name Role Phone Unavailable Primary Care Provider [...] History Relation Name Comments Heart Disease Father [place] Cancer-breast Mother Hypertension Mother Stroke Mother Relation Name Status Comments Father Mother Social History Tobacco Use Types Packs/Day Years Used Date Smoking Tobacco: Never Smokeless Tobacco: Never Alcohol Use Standard Drinks/Week Comments No 0 (1 standard drink = 0.6 oz pur e alcohol) Comments No Sex and Gender Information Value Date Recorded Sex Assigned at Not on file Legal Sex Female 5:23 AM REFRIGERATION LEAD Gender Identity Not on file Sexual Orientation Not on file Obstetrics History Last Filed Vital Signs Vital Sign Reading Time Taken Comments Blood Pressure 154/100 11/07/2015 3:44 PM REFRIGERATION LEAD Pulse 66 11/07/2015 3:44 PM REFRIGERATION LEAD Temperature 36.9 C (98.5 F) 11/07/2015 3:44 PM REFRIGERATION LEAD Respiratory Rate 14 11/07/2015 3:44 PM REFRIGERATION LEAD Oxygen Saturation 98% 11/07/2015 3:44 PM REFRIGERATION LEAD Inhaled Oxygen Concentration - - Weight 73.9 kg (163 lb) 11/07/2015 3:44 PM REFRIGERATION LEAD Height 169.5 cm (5' 6.75) 11/07/2015 3:44 PM CS T Body Mass Index 25.72 11/07/2015 3:44 PM REFRIGERATION LEAD Plan of Treatment Health Maintenance Due Date [...] CDT) CHOLESTEROL,TOTAL 207(H) 110 - 199 mg/dL [facility] TRIGLYCERIDES 124 <150 mg/dL [facility] HDL CHOLESTEROL 68 >40 mg/dL [facility] CHOL/HDL RATIO 3.04 <4.51 [facility] LDL CHOLESTEROL 114 <131 mg/dL [facility] PATIENT STATUS Non-Fasti ng [facility] 03/15/2006 9:36 AM CDT 03/15/2006 9:28 AM CDT us Nigel Patel MD CHEMISTRY Final Result INESPENDING SALE TO [facility] [address] [place] [address] from Last 3 Months or Most Recently Relevant to Health Maintenance Insurance #[id number] [place] [address] [facility]
--- OUTSIDE RECORDS SUMMARY | 2025-02-21 12:07 | XMS_ITS | Encounter Summary ---
Author Organization [place] Address [address] [place] [address] Care Team Providers Care Health Plan Specialist Name Role Phone Loretta [place] MD Primary Care Provider Loretta [place] MD Unavailable [phone] Shirin Rendon MD Unavailable Loretta Grvoe MD Unavailable [phone] Junior Flores MD Unavailable Belinda Brunson CNP Primary Care Provider [phone] Belinda Brunson CNP Unavailable [phone] Encounter Details Date Type Department Care Team (Late st Contact Info) Description 03/03/2022 MyC Medical Advice [facility] [address] [place] [phone] Amie Hilton, HEARING SCREENER Social History Tobacco Use Types Packs/Day Years Used Date Smoking Tobacco: Never Smokeless Tobacco: Never Alcohol Use Standard Drinks/Week Comments Yes 0 (1 standard drink = 0.6 oz pur e alcohol) wine sometimes PHQ-2 Answer Date Recorded PHQ-2 Score 0 04/15/2021 Comments No Sex and Gender Information Value Date Recorded Sex Assigned at Female 03/19/2022 8:51 PM CDT Legal Sex Female 5:08 AM CALL CENTER COORDINATOR Gender Identity Female 03/19/2022 8:51 PM CDT Sexual Orientation Not on file documented as of this encounter Plan of Treatment Upcoming Encounters Date Type Department Care Team (Late st Contact Info) Description 10/26/2025 9:30 AM CALL CENTER COORDINATOR Office Visit [address] [address] Belinda Brunson CNP [address] [place] [address] documented as of this encounter Visit Diagnoses Not on filedocumented in this encounter Additional Health Concerns Infection Onset Date Last Indicated Resolved Time Rule Out C-difficile 04/08/2023 04/08/2023 023 3:47 PM CDT Assessment Noted Time PHQ-9 Depression Total Score: 0 03/27/20 19 9:42 AM CDT documented as of this encounter Care Teams Health Plan Specialist Relationship Specialty [place] [address] [place] [address] PCP - General Family Practice 11/16/15 10/15/24 Belinda Brunson CNP [address] [place] [address] PCP - General Nurse Practitioner - Family 10/16/24 [place] [address] [place] [address] Assigned PCP 04/17/21 09/08/22 [place] [address] [place] [address] Assigned PCP 09/09/22 10/12/23 [place] [address] [place] [address] Assigned PCP 10/13/23 11/02/24 Junior Flores MD [address] [facility] [address] [place] [address] Assigned OBGYN Provider 10/27/23 Belinda Brunson, LALO [address] [place], [place] [address] Assigned PCP 11/03/24 documented as of this encounter
--- OUTSIDE RECORDS SUMMARY | 2025-02-21 12:07 | XMS_ITS | Encounter Summary ---
Author Organization [place] Address [address] [place] [address] Care Team Providers Care Sewing Machinist Name Role Phone Junior Flores MD Unavailable [phone] Belinda Brunson CNP Primary Care Provider Belinda Brunson CNP Unavailable [phone] Reason for Visit * Reason Comments ED follow up Encounter Details Date Type Department Care Team (Late st Contact Info) Description 02/06/2025 3:00 PM CDT Office Visit [address] [address] Belinda Brunson CNP [address] [place] [address] Epigastric pain (Primary Dx); Thrush Social [...] than three times a week 10/12/2024 Attends [employer]azdanism Services Not on file 10/12 Active Member [...] Answer Date Recorded PHQ-2 Score 0 01/19/2025 [facility] [place] of Occupat ional Health - Occupational Stress [...] in an abandoned building, in an overnight chcf, or couch-surfing.) Yes 10/12/2024 Are you worried [...] PM CDT Legal Sex Female 5:08 AM ASSISTANT CENTER DIRECTOR Gender Identity Female 03/19/2022 8:51 PM CDT [...] pylori Antigen Stool Thrush - nystatin (MYCOSTATIN) 229037 UNIT/ML suspension Dispense: 200 mL; Refill: 0 MED REC REQUIRED Post Medication Reconciliation Status: discharge medications reconciled and changed, per note/orders See Patient Instructions Subjective Elizabeth is a 69 year old, presenting for the following health issues: ED follow up 01/19/2025 12:48 PM Additional Questions Roomed by Kandace TORRES Accompanied by Self HPI ED/UC Followup: [facility] Date of visit: 01/28/25 Reason for visit: [...] st Contact Info) Description 10/26/2025 9:30 AM ASSISTANT CENTER DIRECTOR Office Visit [address] [place] [phone] Belinda Brunson CNP [address] [place] [address] documented as of this encounter Procedures Procedure [...] UM SPECIALTY CORE/PROT/ENDO UM Specialty Core/Prot/Endo [facility], Room [address] SPECIALTY LABS Specialty Lab [facility], Room [address] documented in this encounter Visit Diagnoses Diagnosis Epigastric pain- Primary Abdominal pain, epigastric Thrush Candidiasis of mouth documented in this encounter Additional Health Concerns Assessment Noted Time PHQ-9 Depression Total Score: 0 03/27/20 19 9:42 AM CDT documented as of this encounter Care Teams Sewing Machinist Relationship Specialty Start Date End Date Belinda Brunson CNP [address] [place] [address] PCP - General Nurse Practitioner - Family 10/16/24 Junior Flores MD [address] [address] Assigned OBGYN Provider 10/27/23 Belinda Brunson CNP [address] [place] [address] Assigned PCP 11/03/24 documented as of this encounter
--- OUTSIDE RECORDS SUMMARY | 2025-02-21 12:07 | XMS_ITS | Encounter Summary ---
Author Organization [place] Address [address] [place] [address] Care Team Providers Care Sample Carrier Name Role Phone Loretta [place] MD Primary Care Provider [phone] Loretta [place] MD Unavailable [phone] Terrance GudinoM Unavailable [phone] Yvonne Bailey MD Unavailable [phone] Loretta [place] MD Unavailable [phone] Beverley Leonard OD Unavailable [phone] Shirin Rendon MD Unavailable Loretta [place] MD Unavailable [phone] Junior Flores MD Unavailable [phone] Belinda Brunson CNP Primary Care Provider [phone] Belinda Brunson CNP Unavailable [phone] Reason for Visit * Reason Onset Date Comments MyChart Communication 07/21/2020 TSH result s Encounter Details Date Type Department Care Team (Late st Contact Info) Description 07/21/2020 MyC Medical [facility] [address] [place] [phone] [place] [address] [place] [address] MyChart Communication (TSH results) Social History Tobacco [...] PM CDT Legal Sex Female 5:08 AM EXECUTIVE DIRECTOR OF NURSING Gender Identity Female 03/19/2022 8:51 PM CDT [...] st Contact Info) Description 10/26/2025 9:30 AM EXECUTIVE DIRECTOR OF NURSING Office Visit [address] [phone] Belinda Brunson CNP [address] [place] [address]17[address] documented as of this encounter Visit Diagnoses Not on filedocumented in this encounter Additional Health Concerns Infection Onset Date Last Indicated Resolved Time Rule Out C-difficile 04/08/2023 04/08/2023 023 3:47 PM CDT Assessment Noted Time PHQ-9 Depression Total Score: 0 03/27/20 19 9:42 AM CDT documented as of this encounter Care Teams Sample Carrier Relationship Specialty [place] [address] [place] [address] PCP - General Family Practice 11/16/15 10/15/24 Belinda Brunson CNP [address] [place] [address] PCP - General Nurse Practitioner - Family 10/16/24 [place] [address] [place] [address] Assigned PCP 11/21/15 04/06/21 Terrance Gudino DPM [address] [facility] [address] [place] [address] Assigned Musculoskeletal Provider 09/03/20 10/05/20 Yvonne Bailey MD [address] [place] [address] Assigned PCP 04/07/21 04/16/21 [place] [address] [place] [address] Assigned PCP 04/17/21 09/08/22 Beverley Leonard OD [address] [place] [address] Assigned Surgical Provider 10/02/21 12/31/21 [place] [address] [place] [address] Assigned PCP 09/09/22 10/12/23 [place] [address] [place] [address] Assigned PCP 10/13/23 11/02/24 Junior Flores MD [address] [facility] [address] [address] Assigned OBGYN Provider 10/27/23 Belinda Brunson, ORDER ADMINISTRATOR [address] [place] [address] Assigned PCP 11/03/24 documented as of this encounter
--- OUTSIDE RECORDS SUMMARY | 2025-02-21 12:07 | XMS_ITS | Encounter Summary ---
Author Organization [place] Address [address] [place] [address] Care Team Providers Care Senior Executive Assistant Name Role Phone Loretta [place] MD Primary Care Provider [phone] Loretta [place] MD Unavailable [phone] Beverley Leonard OD Unavailable Shirin Rendon MD Unavailable Loretta [place] MD Unavailable [phone] Junior Flores MD Unavailable Belinda Brunson CNP Primary Care Provider Belinda Brunson CNP Unavailable [phone] Reason for Visit * Reason Onset Date Comments Refill Request 07/13/2021 Encounter Details Date Type Department Care Team (Late st Contact Info) Description 07/13/2021 [facility] Adv[facility] [address] [place] [address] [place] [address] [place] [address] Refill Request Social History Tobacco [...] CDT Legal Sex Female 5:08 AM MANAGER OF PATIENT Gender Identity Female 03/19/2022 8:51 PM CDT [...] 07/14/2021 7:52 AM CDT Prescription approved per [facility] Refill Protocol. Roney Benavides RN documented in this encounter Plan of Treatment Upcoming Encounters Date Type Department Care Team (Late st Contact Info) Description 10/26/2025 9:30 AM MANAGER OF PATIENT Office Visit [address] [place] [phone] Belinda Brunson, [facility] [address] [place] [address] documented as of this encounter Results * T4, free (08/29/2021 8:24 AM CDT) Free T4 1.02 0.76 - 1.46 ng/dL 08/29/2021 1:02 PM CDT OX LABORATORY Blood BLOOD SPECIMEN / Unknown Venipuncture / Unknown 08/29/2021 8:24 AM CDT 08/29/2021 8:24 AM CDT us Loretta [place] MD LAB - BLOOD ORDERABLES Fi nal Result OX LABORATORY [facility] [address] [place] [address] Lab (no room number, 1st floor of [facility]) [place] [address], [facility] [phone] * TSH (08/29/2021 8:24 AM CDT) TSH 2.10 0.40 - 4.00 mU/L 08/29/2021 1:09 PM CDT OX LABORATORY Blood BLOOD SPECIMEN / Unknown Venipuncture / Unknown 08/29/2021 8:24 AM CDT 08/29/2021 8:24 AM CDT us Loretta Gorve MD LAB - BLOOD ORDERABLES Fi nal Result OX LABORATORY [facility] [address] [place] [address] Lab (no room number, 1st floor of [facility]) [place] [address], [facility] [phone] documented in this encounter Visit Diagnoses Diagnosis PVC's (premature ventricular contractions) Other premature beats Acquired hypothyroidism Unspecified hypothyroidism documented in this encounter Additional Health Concerns Infection Onset Date Last Indicated Resolved Time Rule Out C-difficile 04/08/2023 04/08/2023 023 3:47 PM CDT Assessment Noted Time PHQ-9 Depression Total Score: 0 03/27/20 19 9:42 AM CDT documented as of this encounter Care Teams Senior Executive Assistant Relationship Specialty [place] [address] [place] [address] PCP - General Family Practice 11/16/15 10/15/24 Belinda Brunson, LALO [address] [place] [address] PCP - General Nurse Practitioner - Family 10/16/24 [place] [address] [place] [address] Assigned PCP 04/17/21 09/08/22 [place] [address] [place] [address] [place] [address] Assigned Surgical Provider 10/02/21 12/31/21 [place] [address] [place] [address] Assigned PCP 09/09/22 10/12/23 [place] [address] [place] [address] Assigned PCP 10/13/23 11/02/24 Junior Flores MD [address] [facility] [address] [address] Assigned OBGYN Provider 10/27/23 Belinda Brunson CNP [address] [place] [address] Assigned PCP 11/03/24 documented as of this encounter
--- OUTSIDE RECORDS SUMMARY | 2025-02-21 12:07 | XMS_ITS | Encounter Summary ---
Author Organization [facility] Address [address] [place] [address] Care Team Providers Care Biomass Facilitator Name Role Phone Loretta [place] MD Primary Care Provider [phone] Loretta [place] MD Unavailable [phone] Beverley Leonard OD Unavailable Shirin Rendon MD Unavailable Loretta [place] MD Unavailable [phone] Junior Flores MD Unavailable Belinda Brunson CNP Primary Care Provider [phone] Belinda Brunson CNP Unavailable [phone] Encounter Details Date Type Department Care Team (Late st Contact Info) Description 07/14/2021 MyC Medical Advice [facility] [address] [place] [address] Skyla Chua Social History Tobacco [...] PM CDT Legal Sex Female 5:08 AM FORK OPERATOR Gender Identity Female 03/19/2022 8:51 PM CDT Sexual Orientation Not on file documented as of this encounter Plan of Treatment Upcoming Encounters Date Type Department Care Team (Late st Contact Info) Description 10/26/2025 9:30 AM FORK OPERATOR Office Visit [address] [address] Belinda Brunson, LALO [address] [place] [address] documented as of this encounter Visit Diagnoses Not on filedocumented in this encounter Additional Health Concerns Infection Onset Date Last Indicated Resolved Time Rule Out C-difficile 04/08/2023 04/08/2023 023 3:47 PM CDT Assessment Noted Time PHQ-9 Depression Total Score: 0 03/27/20 19 9:42 AM CDT documented as of this encounter Care Teams Biomass Facilitator Relationship Specialty [place] [address] [place] [address] PCP - General Family Practice 11/16/15 10/15/24 Belinda Brunson CNP [address] [place] [address] PCP - General Nurse Practitioner - Family 10/16/24 [place] [address] [place] [address] Assigned PCP 04/17/21 09/08/22 Beverley Leonard OD [address] [place] [address] [place]URY [place] [address] Assigned Surgical Provider 10/02/21 12/31/21 [place] [address] [place] [address] Assigned PCP 09/09/22 10/12/23 [place] [address] [place] [address] Assigned PCP 10/13/23 11/02/24 Junior Flores MD [address] [address] Assigned OBGYN Provider 10/27/23 Belinda Brunson, LALO [address] [place] [address] 689942 Assigned PCP 11/03/24 documented as of this encounter
--- OUTSIDE RECORDS SUMMARY | 2025-02-21 12:07 | XMS_ITS | Encounter Summary ---
Author Organization [facility] Address [address] [place] [address] Care Team Providers Care Process Control Specialist Name Role Phone Junior Flores MD Unavailable [phone] Belinda Brunson CNP Primary Care Provider [phone] Belinda Brunson CNP Unavailable [phone] Encounter Details Date Type Department Care Team [...] than three times a week 10/12/2024 Attends Spiritism Services Not on file 10/12 Active Member [...] Answer Date Recorded PHQ-2 Score 0 01/19/2025 [facility] [place] of Occupat ional [facility] - Occupational Stress Questionnaire Answer Date [...] PM CDT Legal Sex Female 5:08 AM ELEVATOR SUPERVISOR Gender Identity Female 03/19/2022 8:51 PM CDT Sexual Orientation Not on file documented as of this encounter Plan of Treatment Upcoming Encounters Date Type Department Care Team (Late st Contact Info) Description 10/26/2025 9:30 AM ELEVATOR SUPERVISOR Office Visit [address] [address] Belinda Brunson CNP [address] [place] [phone] documented as of this encounter Visit Diagnoses Not on filedocumented in this encounter Additional Health Concerns Assessment Noted Time PHQ-9 Depression Total Score: 0 03/27/20 19 9:42 AM CDT documented as of this encounter Care Teams Process Control Specialist Relationship Specialty Start Date End Date Belinda Brunson CNP [address] [place] [address] 257822 PCP - General Nurse Practitioner - Family 10/16/24 Junior Flores MD [address] [address] Assigned OBGYN Provider 10/27/23 Belinda Brunson CNP [address] [place] [address]38[address] Assigned PCP 11/03/24 documented as of this encounter
--- OUTSIDE RECORDS SUMMARY | 2025-02-21 12:07 | XMS_ITS | Encounter Summary ---
Author Organization [place] Address [address] [place] [address] Care Team Providers Care Roofing Apprentice Name Role Phone Junior Flores MD Unavailable Belinda Brunson CNP Primary Care Provider Belidna Brunson CNP Unavailable Encounter Details Date Type Department Care Team (Late st Contact Info) Description 01/28/2025 MyC Medical Advice [address] [address] Belinda Brunson CNP [address] [place] [address] Social History Tobacco Use Types Packs/Day [...] than three times a week 10/12/2024 Attends [employer] Not on file 10/12 Active Member [...] PM CDT Legal Sex Female 5:08 AM HOOP DRIVING MACHINE OPERATOR Gender Identity Female 03/19/2022 8:51 [...] follow up is needed. Jolly Leonard RN [place] Triage documented in this encounter Plan of Treatment Upcoming Encounters Date Type Department Care Team (Late st Contact Info) Description 10/26/2025 9:30 AM HOOP DRIVING MACHINE OPERATOR Office Visit [address] [phone] Belinda Brunson CNP [address] [place] [address]67222 documented as of this encounter Visit Diagnoses Not on filedocumented in this encounter Additional Health Concerns Assessment Noted Time PHQ-9 Depression Total Score: 0 03/27/20 9:42 AM CDT documented as of this encounter Care Teams Roofing Apprentice Relationship Specialty Start Date End Date Belinda Brunson CNP [address] [place] [address] PCP - General Nurse Practitioner - Family 10/16/24 Junior Flores MD [address] [address] Assigned OBGYN Provider 10/27/23 Belinda Brunson, LALO [address] [place] [address] Assigned PCP 11/03/24 documented as of this encounter
--- OUTSIDE RECORDS SUMMARY | 2025-02-21 12:07 | XMS_ITS | Encounter Summary ---
Author Organization [place] Address [address] [place] [address] Care Team Providers Care Storage Battery Inspector Name Role Phone Junior Flores MD Unavailable [phone] Belinda Brunson CNP Primary Care Provider [phone] Belinda Brunson CNP Unavailable [phone] Encounter Details Date Type Department Care Team (Late st Contact Info) Description 02/13/2025 8:15 AM CDT Lab [facility] [address] [place] [address] Mixed hyperlipidemia Social History Tobacco Use [...] than three times a week 10/12/2024 Attends Christianity Services Not on file 10/12 Active Member [...] Answer Date Recorded PHQ-2 Score 0 01/19/2025 [facility] of [...] in an overnight detention, or couch-surfing.) Yes 10/12/2024 Are you worried [...] PM CDT Legal Sex Female 5:08 AM FITNESS AND WELLNESS DIRECTOR Gender Identity Female 03/19/2022 8:51 PM CDT Sexual Orientation Not on file documented as of this encounter Plan of Treatment Upcoming Encounters Date Type Department Care Team (Late st Contact Info) Description 10/26/2025 9:30 AM FITNESS AND WELLNESS DIRECTOR Office Visit [address] [phone] Belinda Brunson, [facility] [address] [place] [phone] documented as of this encounter Procedures Procedure [...] BLOOD ORDERABLES Fi nal Result [facility] [place] [facility] [address] [facility], Room [address] [phone] documented in this encounter Visit Diagnoses Diagnosis Mixed hyperlipidemia documented in this encounter Additional Health Concerns Assessment Noted Time PHQ-9 Depression Total Score: 0 03/27/20 19 9:42 AM CDT documented as of this encounter Care Teams Storage Battery Inspector Relationship Specialty Start Date End Date Belinda Brunson CNP [address] [place] [address]8722 PCP - General Nurse Practitioner - Family 10/16/24 Junior Flores MD [address], [address] [address] Assigned OBGYN Provider 10/27/23 Belinda Brunson CNP [address] [place] [address] Assigned PCP 11/03/24 documented as of this encounter
--- OUTSIDE RECORDS SUMMARY | 2025-02-21 12:07 | XMS_ITS | Encounter Summary ---
Author Organization [place] Address [address] [place] [address] Care Team Providers Care Liquefied Natural Gas Plant Operator Name Role Phone Junior Flores MD Unavailable [phone] Belinda Brunson CNP Primary Care Provider Belinda Brunson CNP Unavailable Encounter Details Date Type Department Care Team (Late st Contact Info) Description 01/29/2025 MyC Medical Advice [address] [address] Belinda Brunson CNP [address] [place] [address] Epigastric pain (Primary Dx) Social [...] than three times a week 10/12/2024 Attends [employer] Services Not on file 10/12 Active Member [...] PHQ-2 Score 0 01/19/2025 [facility] of Occupat ional Health - [...] in an abandoned building, in an overnight penitentiary, or couch-surfing.) Yes 10/12/2024 Are you worried [...] PM CDT Legal 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 Mychart sent Kandace Ayala RN on 01/29/2025 at 8:53 AM [facility] * Addendum Note - Belinda Brunson CNP - 01/29/2025 6:30 AM CDTAddended by: BELINDA BRUNSON on: 02/03/2025 08:20 AM Modules accepted: Orders documented in this encounter Plan of Treatment Upcoming Encounters Date Type Department Care Team (Late st Contact Info) Description 10/26/2025 9:30 AM WINDOW TREATMENT INSTALLER Office Visit [address] [phone] Belinda Brunson CNP [address] [place] [address] documented as of this encounter Results * [...] Result UM SPECIALTY CORE/PROT/ENDO Specialty Core/Prot/Endo [address] [facility], Room [address] SPECIALTY LABS Specialty Lab [address] [facility], [address] [address], [place] documented in this encounter Visit Diagnoses Diagnosis Epigastric pain- Primary Abdominal pain, epigastric documented in this encounter Additional Health Concerns Assessment Noted Time PHQ-9 Depression Total Score: 0 03/27/20 19 9:42 AM CDT documented as of this encounter Care Teams Liquefied Natural Gas Plant Operator Relationship Specialty Start Date End Date Belinda Brunson CNP [address] [place] [address] PCP - General Nurse Practitioner - Family 10/16/24 Junior Flores MD [address], [address] [address] Assigned OBGYN Provider 10/27/23 Belinda Brunson CNP [address] [place] [address] Assigned PCP 11/03/24 documented as of this encounter
--- OUTSIDE RECORDS SUMMARY | 2025-02-21 12:07 | XMS_ITS | Encounter Summary ---
Author Organization [facility] Address [address] [place] [id number] Care Team Providers Care Drawing Tender Name Role Phone Junior Flores MD Unavailable + [phone] Belinda Brunson CNP Primary Care Provider [phone] Belinda Brunson CNP Unavailable [phone] Encounter Details Date Type Department Care Team [...] than three times a week 10/12/2024 Attends [employer] Not on file 10/12 Active Member [...] Answer Date Recorded PHQ-2 Score 0 01/19/2025 [facility] of Occupat ional [facility] - Occupational Stress Questionnaire Answer [...] an overnight senior care, or couch-surfing.) Yes 10/12/2024 Are you worried [...] PM CDT Legal Sex Female 5:08 AM [facility] Gender Identity Female 03/19/2022 8:51 PM CDT Sexual Orientation Not on file documented as of this encounter Plan of Treatment Upcoming Encounters Date Type Department Care Team (Late st Contact Info) Description 10/26/2025 9:30 AM [facility] Office Visit [address] [phone] Belinda Brunson CNP [address] [place] [address] [id number] documented as of this encounter Visit Diagnoses Not on filedocumented in this encounter Additional Health Concerns Assessment Noted Time PHQ-9 Depression Total Score: 0 03/27/20 19 9:42 AM CDT documented as of this encounter Care Teams Drawing Tender Relationship Specialty Start Date End Date Belinda Brunson CNP [address] [place] [id number] PCP - General Nurse Practitioner - Family 10/16/24 Junior Flores MD [address] [address] Assigned OBGYN Provider 10/27/23 Belinda Brunson CNP [address] [place] [id number] Assigned PCP 11/03/24 documented as of this encounter
[2025-02-21 12:09] LABS: Basophils Absolute Auto 0.07 K/uL (0.00-0.30); Basophils Percent Auto 1.1 % (0.0-3.0); Eosinophils Absolute Auto 0.16 K/uL (0.00-0.50); Eosinophils Percent Auto 2.5 % (0.0-7.0); Hematocrit 40.4 % (33.0-51.0); Hemoglobin* 13.7 gm/dL (12.0-16.0); Immature Granulocytes Abs Auto 0.01 K/uL (0.00-0.30); Immature Granulocytes Pct Auto 0.2 %; Lymphocytes Percent Auto 26.8 % (20-44); Mean Corpuscular HGB Conc 34 gm/dL (32-36); Mean Corpuscular Hemoglobin 31 pg (26-34); Mean Corpuscular Volume 91 fL (80-100); Monocytes Percent Auto 6.6 % (0.0-11.0); Neutrophils Absolute Auto 3.99 K/uL (1.7-7.0); Neutrophils Percent Auto 62.8 % (42.0-72.0); Platelet Count* 302 K/uL (140-440); RDW Coefficient of Variation % 12.1 % (11.5-15.5); Red Blood Count 4.42 m/uL (4.00-5.20); White Blood Count* 6.35 K/uL (4.50-11.00)
[2025-02-21 12:21] LABS: Albumin* 4.6 g/dL (3.3-5.0); Chloride* 101 mmol/L (96-114)
[2025-02-21 12:22] LABS: Potassium* 4.3 mmol/L (3.6-5.1); Sodium* 137 mmol/L (135-149)
[2025-02-21 12:24] LABS: Blood Urea Nitrogen* 9 mg/dL (7-30); Creatinine* 0.9 mg/dL (0.5-1.5); Est. Creatinine Clearance* 51.11; Estimated Glomerular Filt Rate 70 ml/min; Slide Review Reflex No
[2025-02-21 12:25] LABS: Alanine Aminotransferase* 20 U/L (4-35); Alkaline Phosphatase* 68 U/L (40-150); Anion Gap 11 mEq/L (7-15); Aspartate Amino Transferase* 28 U/L (12-35); Bilirubin Direct* 0.3 mg/dL (0.0-0.5); Bilirubin Total* 0.6 mg/dL (0.1-1.5); Calcium* 9.5 mg/dL (8.4-10.6); Carbon Dioxide* 25 mmol/L (20-32); Glucose* 98 mg/dL (60-115); Lipase* 165 U/L (23-300); Total Protein* 7.5 g/dL (6.0-8.3)
[2025-02-21 12:28] LABS: C Reactive Protein* < 0.5 mg/dL (0.5-1.0)
[2025-02-21 14:03] LABS: Erythrocyte SedimentationRate* 4 mm/hr (2-20)
== END 2025-02-21 13:19 | disposition home or self-care (01) ==
PROVIDERS: Emergency Provider Emergency Medicine Emergency Medical Services
DX: R10.9 Unspecified abdominal pain (principal)
CPT/HCPCS: 36415; 74176; 80048; 80076; 83690; 85025; 85651; 86140; 99284